=== PATIENT | female | born 2000 | race Caucasian/White ===

== ENCOUNTER 2024-06-14 17:38 | Emergency (ER) | payer MEDICAID, SELFPAY ==
[2024-06-14 17:49] VITALS: BP 132/88; PULSE 88; TEMP 36.6; O2SAT 98; BMI 48.1
--- NOTE | 2024-06-14 18:03 | ED_ITS ---
HPI - Abdominal Pain General Chief Complaint: Abdominal Pain Stated Complaint: ABD PAIN Time Seen by Provider: 06/14/24 17:46 Source: patient Mode of arrival: walk-in History of Present Illness HPI narrative: Patient is a 23-year-old female who presents to the emergency department for evaluation of mid abdominal pain that has been present for the last year. She states her symptoms have increased since this summer. She sees a local [facility], she states she has been off Depo for several months but has not had a menstrual period. She is unsure if she may be . She denies fevers, chills, nausea, vomiting, urinary symptoms. She denies any previous abdominal surgeries. No medications taken prior to arrival. Related Data Previous Rx's ?Medication ?Instructions ?Recorded ciprofloxacin HCl 500 mg tablet 500 mg PO BID 5 days #20 tabs 06/14/24 (Cipro) hyoscyamine sulfate 0.125 mg 0.125 mg PO Q6H PRN abdominal pain 06/14/24 tablet (Levsin) #12 tabs ketorolac 10 mg tablet 10 mg PO TID PRN pain #10 tabs 06/14/24 ondansetron 4 mg disintegrating 4 mg PO Q6H PRN nausea and 06/14/24 tablet vomiting #12 tabs Allergies Allergy/AdvReac Type Severity Reaction Status Date / Time Penicillins Allergy Severe Hives Verified 06/14/24 17:53 Review of Systems ROS Constitutional Denies: fever or chills Ears, nose, mouth, and throat Denies: throat pain or nasal congestion Respiratory Denies: shortness of breath Gastrointestinal Reports: abdominal pain; Denies: nausea or vomiting Genitourinary Denies: painful urination Musculoskeletal Denies: back pain Integumentary/Breast Denies: rash Hematologic/Lymphatic Denies: easy bruising or easy bleeding Exam Narrative Exam Narrative: Gen.: Awake, alert, in no distress Head: Normocephalic, atraumatic ENT: Moist mucous membranes Respiratory: No respiratory distress Gastrointestinal: Abdomen is soft, obese and nondistended. Diffusely mildly tender in the bilateral lower quadrants and umbilical abdomen with no guarding or rebound Extremities: Moves extremities equally Psych: Normal mood and affect Neuro: No focal neuro deficit Skin: Warm, dry, intact Constitutional Vital Signs, click to edit/add: Last Vital Signs Temp 97.8 F 06/14/24 17:49 Pulse 88 06/14/24 17:49 Resp 16 06/14/24 17:49 BP 132/88 06/14/24 17:49 Pulse Ox 98 06/14/24 17:49 O2 Del Method Room Air 06/14/24 17:49 Course Vital Signs Vital signs: Vital Signs Temperature 97.8 F 06/14/24 17:49 Pulse Rate 88 06/14/24 17:49 Respiratory Rate 16 06/14/24 17:49 Blood Pressure 132/88 06/14/24 17:49 Pulse Oximetry 98 06/14/24 17:49 Oxygen Delivery Method Room Air 06/14/24 17:49 Temperature 97.8 F 06/14/24 17:49 Pulse Rate 88 06/14/24 17:49 Respiratory Rate 16 06/14/24 17:49 Blood Pressure 132/88 06/14/24 17:49 Pulse Oximetry 98 06/14/24 17:49 Oxygen Delivery Method Room Air 06/14/24 17:49 MDM - Abdominal Pain MDM Narrative Medical decision making narrative: Labs are within normal limits including test which is negative. Patient sent for an ab series which is unremarkable and urine specimen shows patient has a mild contaminated urinary tract infection. Given her lower abdominal pain we will treat with antibiotics, Zofran, Levsin. Follow-up with PCP and return to the emergency department if symptoms change or worsen. SHARED APC VISIT, PHYSICIAN ATTESTATION: [id number] I performed a substantive part of the MDM during the patient?s E/M visit. I personally evaluated and examined the patient. I personally made or approved the documented management plan and acknowledge its risk of complications. Medical Records Attestation: I reviewed the patient's medical records. Lab Data Attestation: I reviewed the patient's lab results. Labs: Lab Results 06/14/24 06/14/24 Range/Units 18:00 18:09 WBC 10.4 (4.0-11.0) 10^3/uL RBC 4.89 (4.20-5.40) 10^6/uL Hgb 14.6 (12.0-16.0) g/dL Hct 42.4 (36.0-48.0) % MCV 86.7 (81.0-99.0) fL MCH 29.9 (26.7-34.0) pg MCHC 34.4 (29.9-35.2) g/dL RDW 12.5 (11.0-15.0) % Plt Count 233 (150-450) 10^3/uL MPV 9.6 (9.5-13.5) fL Neut % (Auto) 62.5 (43.0-75.0) % Lymph % (Auto) 30.2 (20.5-60.0) % [place] % (Auto) 5.4 (1.7-12.0) % Eos % (Auto) 1.2 (0.9-7.0) % Baso % (Auto) 0.3 (0.2-2.0) % Neut # (Auto) 6.5 (1.4-6.5) 10^3/uL Lymph # (Auto) 3.2 (1.2-3.8) 10^3/uL [place] # (Auto) 0.6 (0.3-0.8) 10^3/uL Eos # (Auto) 0.1 (0.0-0.7) 10^3/uL Baso # (Auto) 0.0 (0.0-0.1) 10^3/uL Abs Immat Gran (auto) 0.04 H (0.00-0.03) 10^3/uL Imm/Tot Granulo (auto) 0.4 (0.0-0.5) % Sodium 143 (136-145) mmol/L Potassium 3.9 (3.5-5.1) mmol/L Chloride 107 (98-107) mmol/L Carbon Dioxide 26.3 (21.0-32.0) mmol/L Anion Gap 13.6 BUN 14.0 (7.0-18.0) mg/dL Creatinine 1.07 H (0.55-1.02) mg/dL Est GFR ( Amer) >60 (>=60 mL/min/1.73m^2) Est GFR (Non-Af Amer) >60 (>=60 mL/min/1.73m^2) BUN/Creatinine Ratio 13.1 Glucose 83 (74-106) mg/dL Calcium 9.5 (8.5-10.1) mg/dL Total Bilirubin 0.6 (0.2-1.0) mg/dL AST 16 (15-37) U/L ALT 24 (14-59) U/L Alkaline Phosphatase 101 (46-116) U/L Total Protein 7.2 (6.4-8.2) g/dL Albumin 3.4 (3.4-5.0) g/dL Globulin 3.8 g/dL Albumin/Globulin Ratio 0.9 Lipase 28.0 (16.0-77.0) U/L Serum HCG, Qual Negative (NEGATIVE) Urine Color Lt. yellow (YELLOW) Urine Clarity Slightly cloudy A (CLEAR) Urine pH 7.0 (5.0-9.0) Ur Specific [place] 1.020 (1.005-1.025) Urine Protein Negative (NEG/TRACE) mg/dL Urine Glucose (UA) Negative (NEGATIVE) mg/dL Urine Ketones Negative (NEGATIVE) mg/dL Urine Occult Blood Negative (NEGATIVE) Urine Nitrite Negative (NEGATIVE) Urine Bilirubin Negative (NEGATIVE) Urine Urobilinogen 0.2 (0.2-1.0) EU/dL Ur Leukocyte Esterase Small A (NEGATIVE) Urine RBC 0-2 (0-2) #/HPF Urine WBC 5-10 A (NONE SEEN) #/HPF Ur Squamous Epith Cells Many A (NONE/RARE) #/LPF Urine Crystals None seen (None Seen) #/HPF Urine Bacteria Large A (NONE SEEN) #/HPF Urine Casts None seen (NONE SEEN) #/LPF Urine Mucus Small A (NONE SEEN) Ur Culture Indicated? Yes Imaging Data Abdominal x-ray: Attestation: I have reviewed the pertinent imaging results. Discharge Plan Discharge Chief Complaint: Abdominal Pain Clinical Impression: Abdominal pain, UTI (urinary tract infection) Patient Disposition: Home, Self-Care Time of Disposition Decision: 19:09 Condition: Good Prescriptions / Home Meds: New ciprofloxacin HCl [Cipro] 500 mg tablet 500 mg PO BID 5 Days Qty: 20 0RF ketorolac 10 mg tablet 10 mg PO TID PRN (Reason: pain) Qty: 10 0RF hyoscyamine sulfate [Levsin] 0.125 mg tablet 0.125 mg PO Q6H PRN (Reason: abdominal pain) Qty: 12 0RF ondansetron 4 mg tablet,disintegrating 4 mg PO Q6H PRN (Reason: nausea and vomiting) Qty: 12 0RF Print Language: Divehi Instructions: Urinary Tract Infection in Women (ED), Chronic Abdominal Pain (DC) Referrals: Physician,Non-Staff, MD [Primary Care Provider] - 1 week
[2024-06-14 18:17] LABS: Basophils Percent Auto 0.3 % (0.2-2.0); Eosinophils Absolute Auto 0.1 10^3/uL (0.0-0.7); Eosinophils Percent Auto 1.2 % (0.9-7.0); Hematocrit 42.4 % (36.0-48.0); Hemoglobin 14.6 g/dL (12.0-16.0); Immature Granulocytes Abs Auto 0.04 10^3/uL (0.00-0.03); Immature Granulocytes Pct Auto 0.4 % (0.0-0.5); Lymphocytes Absolute Auto 3.2 10^3/uL (1.2-3.8); Lymphocytes Percent Auto 30.2 % (20.5-60.0); Mean Corpuscular HGB Conc 34.4 g/dL (29.9-35.2); Mean Corpuscular Hemoglobin 29.9 pg (26.7-34.0); Mean Corpuscular Volume 86.7 fL (81.0-99.0); Mean Platelet Volume 9.6 fL (9.5-13.5); Monocytes Absolute Auto 0.6 10^3/uL (0.3-0.8); Monocytes Percent Auto 5.4 % (1.7-12.0); Neutrophils Absolute Auto 6.5 10^3/uL (1.4-6.5); Neutrophils Percent Auto 62.5 % (43.0-75.0); Platelet Count 233 10^3/uL (150-450); Red Blood Count 4.89 10^6/uL (4.20-5.40); Red Cell Distribution Width 12.5 % (11.0-15.0); White Blood Count 10.4 10^3/uL (4.0-11.0)
[2024-06-14 18:18] LABS: Bilirubin Urine NEGATIVE (NEGATIVE); Blood Urine NEGATIVE (NEGATIVE); Color Urine LT. YELLOW (YELLOW); Glucose Urine UA NEGATIVE (NEGATIVE); Ketones Urine NEGATIVE (NEGATIVE); Leukocyte Esterase Urine SMALL (NEGATIVE); Nitrite Urine NEGATIVE (NEGATIVE); Protein Urine NEGATIVE (NEG/TRACE); Urobilinogen Urine 0.2 EU/dL (0.2-1.0)
[2024-06-14] MEDS: HYOSCYAMINE SULFATE 0.125 MG TAB.SUBL SL (18:18)
[2024-06-14] MEDS: ONDANSETRON 4 MG RAPDIS TABLET SL (18:19)
[2024-06-14 18:25] LABS: Urine Microscopic Indicated YES
[2024-06-14 18:26] LABS: Clarity Urine SLIGHTLY CLOUDY (CLEAR)
[2024-06-14 18:31] LABS: Bacteria Urine LARGE #/HPF (NONE SEEN); Cast Seen? NONE SEEN #/LPF (NONE SEEN); Crystals Seen? None Seen #/HPF (None Seen); Mucus Urine SMALL (NONE SEEN); RBC Urine 0-2 #/HPF (0-2); Squamous Epithelial Cell Urine MANY #/LPF (NONE/RARE); Urine Culture Indicated YES
[2024-06-14 18:33] LABS: Alanine Aminotransferase 24 U/L (14-59); Albumin Level 3.4 g/dL (3.4-5.0); Alkaline Phosphatase 101 U/L (46-116); Anion Gap 13.6; Aspartate Amino Transferase 16 U/L (15-37); BUN Creatinine Ratio 13.1; Bilirubin Total 0.6 mg/dL (0.2-1.0); Calcium 9.5 mg/dL (8.5-10.1); Carbon Dioxide 26.3 mmol/L (21.0-32.0); Chloride 107 mmol/L (98-107); Estimated GFR (African America >60 (>=60 mL/min/1.73m^2); Estimated GFR (Non-African Ame >60 (>=60 mL/min/1.73m^2); Glucose 83 mg/dL (74-106); Potassium 3.9 mmol/L (3.5-5.1); Sodium 143 mmol/L (136-145); Total Protein 7.2 g/dL (6.4-8.2)
[2024-06-14 18:34] LABS: Albumin Globulin Ratio 0.9; Globulin 3.8 g/dL
[2024-06-14 18:46] LABS: HCG Qualitative NEGATIVE (NEGATIVE); Internal Control Within Normal Limits
--- NOTE | 2024-06-14 18:48 | XR_ITS ---
The [address] [address] Patient Name: JOHN PAUL SCHILLING MRN: [id number] date: 2000 Sex: F Assigned Patient Location: ER Current Patient Location: Accession/Order Number: [id number] Exam Date: 06/14/2024 18:55 Report Date: 06/14/2024 21:12 At the request of: BRO HERRERA Procedure: XR acute abdomen series EXAM: XR acute abdomen series HISTORY: Abdominal pain COMPARISON: None. TECHNIQUE: AP chest with AP supine and upright abdominal x-rays. FINDINGS: The heart, mediastinum and pulmonary vascularity are within normal limits. The lungs and pleural spaces are clear. The bowel gas pattern appears normal. No bowel dilatation, wall thickening, pneumatosis or free air is seen. Colonic stool volume appears normal. No urinary tract calculi are identified. There is a mild broad thoracolumbar levoscoliosis. There is sacralization of L5 on the right. No acute osseous abnormality or focal bony lesion is seen. XR/XR acute abdomen series IMPRESSION: No acute findings in the chest or abdomen. Electronically authenticated by: DELMY WOODRUFF Date: 06/14/2024 21:12
== END 2024-06-14 19:55 | disposition home or self-care (01) ==
PROVIDERS: Physician Assistant; Emergency Provider Emergency Medicine
DX: N39.0 Urinary tract infection, site not specified (principal); R10.9 Unspecified abdominal pain
CPT/HCPCS: 36415; 74022; 80053; 81001; 83690; 84703; 85025; 87086; 99285; Q0162

== ENCOUNTER 2024-08-16 20:21 | Emergency (ER) | payer MEDICAID, SELFPAY ==
[2024-08-16] VITALS (9 sets, daily range): BP systolic 118–133; BP diastolic 77–86; PULSE 76–98; TEMP 36.7; O2SAT 96–99; BMI 50.2
--- OUTSIDE RECORDS SUMMARY | 2024-08-16 20:27 | XMS_ITS | CCD ---
Author Organization [facility] Care Team Providers Care Director Professional Services Name Role Phone CLEEMPUT, JODI ROSSI GARBAGE DEPOT WORKER Attending Unavailable Cleemput, Jodi [place] Primary Care Unavailable Cleemput, Jodi [place] Primary Care Unavailable Paulette Harley Attending Unava ilable CLEEMPUT, JODI ROSSI GARBAGE DEPOT WORKER Consulting Unavailable Unavailable Primary Care Provider ESTEFANY Herr Referring Unavailable MISC, DR CASTAÑEDA Primary Care Unavailable CARL ., DR JOLLY Consulting Unavailable CARL ., DR JOLLY Admitting Unavailable CARL ., DR JOLLY Attending Unavailable ZIEBER, DR DALTON Valerio Consulting Unavailable CARL ., DR JOLLY Admitting Unavailable REQUEST, DR NONE LISTED Primary Care Unavaila ble CARL ., DR JOLLY Attending Unavailable CARL ., DR JOLLY Consulting Unavailable ZIEBER, DR DALTON Valerio Consulting Unavailable CARLEY ., JODI Consulting Unavailable CARL ., DR JOLLY Admitting Unavailable REQUEST, DR NONE LISTED Primary Care Unavaila ble CARL ., DR JOLLY Attending Unavailable MISC, DR CASTAÑEDA Primary Care Unavailable CARLEY ., JODI Attending Unavailable CARLEY ., JODI Consulting Unavailable CARLEY ., JODI Admitting Unavailable MISC, DR CASTAÑEDA Primary Care Unavailable CARL ., DR JOLLY Consulting Unavailable CARL ., DR JOLLY Admitting Unavailable CARL ., DR JOLLY Attending Unavailable CARL ., DR JOLLY Admitting Unavailable REQUEST, DR NONE LISTED Primary Care Unavaila ble CARL ., DR JOLLY Consulting Unavailable CARL ., DR JOLLY Attending Unavailable ZIEBER, DR DALTON Valerio Consulting Unavailable CARLEY ., JODI Consulting Unavailable JAVI, DR EDIE Valerio Attending Unavailable JAVI, DR EDIE Valerio Consulting Unavailable MISC, DR CASTAÑEDA Primary Care Unavailable JAVI, DR EDIE Valerio Admitting Unavailable ASHLEY BEASLEY Consulting Unavailable MISC, DR CASTAÑEDA Primary Care Unavailable CARL ., DR JOLLY Consulting Unavailable CARL ., DR JOLLY Admitting Unavailable CARL ., DR JOLLY Attending Unavailable ZIEBER, DR DALTON Valerio Consulting Unavailable CARL ., DR JOLLY Consulting Unavailable MISC, DR CASTAÑEDA Primary Care Unavailable CARL ., DR JOLLY Admitting Unavailable CARL ., DR JOLLY Attending Unavailable CARL ., DR JOLLY Consulting Unavailable MISC, DR CASTAÑEDA Primary Care Unavailable CARL ., DR JOLLY Admitting Unavailable CARL ., DR JOLLY Attending Unavailable REQUEST, DR NONE LISTED Primary Care Unavaila ble CARL ., DR JOLLY Admitting Unavailable CARL ., DR JOLLY Attending Unavailable CARL ., DR JOLLY Consulting Unavailable KARASIK ., DR LYN Consulting Unavailabl e KARASIK ., DR LYN Admitting Unavailabl e KARASIK ., DR LYN Attending Unavailabl e REQUEST, DR NONE LISTED Primary Care Unavaila ble ZIEBER, DR DALTON Valerio Consulting Unavailable CARLEY ., JODI Consulting Unavailable REQUEST, DR NONE LISTED Primary Care Unavaila ble CARL ., DR JOLLY Admitting Unavailable CARL ., DR JOLLY Attending Unavailable CARL ., DR JOLLY Consulting Unavailable CARL ., DR JOLLY Admitting Unavailable REQUEST, DR NONE LISTED Primary Care Unavaila ble CARL ., DR JOLLY Consulting Unavailable CARL ., DR JOLLY Attending Unavailable CARL ., DR JOLLY Admitting Unavailable REQUEST, DR NONE LISTED Primary Care Unavaila ble CARL ., DR JOLLY Consulting Unavailable CARL ., DR JOLLY Attending Unavailable CARL ., DR JOLLY Admitting Unavailable REQUEST, DR NONE LISTED Primary Care Unavaila ble CARL ., DR JOLLY Consulting Unavailable CARL ., DR JOLLY Attending Unavailable MISC, DR CASTAÑEDA Primary Care Unavailable CARL ., DR JOLLY Admitting Unavailable CARL ., DR JOLLY Consulting Unavailable CARL ., DR JOLLY Attending Unavailable CARL ., DR JOLLY Consulting Unavailable CARL ., DR JOLLY Admitting Unavailable REQUEST, DR NONE LISTED Primary Care Unavaila ble CARL ., DR JOLLY Attending Unavailable CARLEY ., JODI Admitting Unavailable CARLEY ., JODI Attending Unavailable REQUEST, DR NONE LISTED Primary Care Unavaila ble CARL ., DR JOLLY Admitting Unavailable REQUEST, DR NONE LISTED Primary Care Unavaila ble CARL ., DR JOLLY Attending Unavailable DIAB ., AIDAN Attending Unavailable DIAB ., AIDAN Consulting Unavailable REQUEST, DR NONE LISTED Primary Care Unavaila ble DIAB ., AIDAN Admitting Unavailable KARASIK ., DR LYN Consulting Unavailabl e CARL ., DR JOLLY Admitting Unavailable REQUEST, DR NONE LISTED Primary Care Unavaila ble CARL ., DR JOLLY Attending Unavailable CARL ., DR JOLLY Consulting Unavailable KARASIK ., DR LYN Procedure Practitioner Tamiko vailable MISC, DR CASTAÑEDA Primary Care Unavailable CARLEY ., JODI Attending Unavailable CARLEY ., JODI Admitting Unavailable CARL ., DR JOLLY Consulting Unavailable CARL ., DR JOLLY Admitting Unavailable MISC, DR CASTAÑEDA Primary Care Unavailable CARL ., DR JOLLY Attending Unavailable ZIEBER, DR DALTON Valerio Consulting Unavailable REQUEST, DR NONE LISTED Primary Care Unavaila ble KARASIK ., DR LYN Admitting Unavailabl e KARASIK ., DR YLN Attending Unavailabl e KARASIK ., DR LYN Consulting Unavailabl e WEST, DR MACHELLE Scott Consulting Unavailable CARLEY ., JODI Consulting Unavailable MISC, DR CASTAÑEDA Primary Care Unavailable CARL ., DR JOLLY Consulting Unavailable CARL ., DR JOLLY Admitting Unavailable CARL ., DR JOLLY Attending Unavailable CARLEY, JODI Attending Unavailable CARLEY, JODI Attending Unavailable Daniel Pietro DEVINE Primary Care Provider PIETRO SANCHEZ Attending Unavailable PIETRO SANCHEZ Referring Unavailable DANIEL, MUHAMID M Primary Care Unavailable AIME, ZULEYMA H Attending Unavailable DANIEL, MUHAMID M Primary Care Unavailable AIME, ZULEYMA H Attending Unavailable AIME, ZULEYMA H Referring Unavailable DANIEL, MUHAMID M Primary Care Unavailable DANIEL, MUHAMID M Primary Care Unavailable EDITH SILVA Attending Unavailable Allergies Allergy Classification Reported Allergen(s) Allergy Type Date of Onset Reaction(s) Facility (1 source) Penicillin; Translations: [penicillin] Drug Allergy [facility] Repository (2 sources) bee venom Propensity to adverse reactions to drug 9 Shortness Of Breath [facility] (4 sources) Cephalexin; Translations: [CEPHALEXIN] Drug Allergy 2 Rash [employer] Work Phone: (4 sources) Penicillins; Translations: [PENICILLINS] Propensity to adverse reactions to drug 8 [employer] Phone: (1 source) bee venom Drug allergy (disorder) 5 [facility] (1 source) Penicillins Drug allergy (disorder) 5 [facility] (2 sources) BEE VENOM PROTEIN (HONEY BEE); Translations: [BEE VENOM PROTEIN (HONEY BEE)] Propensity to adverse reactions to drug (disorder) 9 [facility] Medications Current Medications Medication Drug Class(es) Dates Sig (Normalized) Sig (Original) acetaminophen 500 mg oral tablet (2 sources) Start: 03-04-2024 End: 07-25-2024 take 2 tablets by mouth every six hours as needed for pain acetaminophen (TYLENOL EXTRA STRENGTH) 500 mg tablet Take 2 tablets (1,000 mg total) by mouth every 6 (six) hours as needed for pain. 30 tablet 03/04/2024 07/25/2024 Discontinued Start: 10-01-2021 [facility] needed acetaminophen (TYLENOL) 500 MG tablet Take 1,000 mg by mouth every 6 hours as needed 0 10/01/2021 Active benzocaine 6 mg / menthol 10 mg oral lozenge (1 source) Standardized Chemical Allergen Start: 12-31-2021 End: 07-25-2024 take 1 tablet by mouth every two hours as needed benzocaine-menthoL (CHLORASEPTIC SORE THROAT) 6-10 mg lozenge Dissolve 1 lozenge in the mouth every 2 (two) hours as needed for sore throat. 100 tablet 12/31/2021 07/25/2024 Discontinued dicyclomine hydrochloride 20 mg oral tablet (1 source) Anticholinergic Start: 03-02-2022 End: 07-25-2024 take 1 tablet by mouth in the morning, then take 1 tablet by mouth at bedtime dicyclomine (BENTYL) 20 mg tablet Take 1 tablet (20 mg total) by mouth in the morning and 1 tablet (20 mg total) before bedtime. 20 tablet 03/02/2022 07/25/2024 Discontinued fluconazole 100 mg oral tablet (1 source) Azole Antifungal Start: 07-25-2024 End: 07-28-2024 take 1 tablet by mouth in the morning fluconazole (DIFLUCAN) 100 mg tablet Indications: Candidal vaginitis Take 1 tablet (100 mg total) by mouth in the morning for 3 doses. 3 tablet 07/25/2024 07/28/2024 Active hydrOXYzine hydrochloride 25 mg oral tablet (1 source) Antihistamine Start: 07-25-2024 take 1 tablet by mouth three times daily as needed for anxiety hydrOXYzine (ATARAX) 25 mg tablet Indications: Bipolar affective disorder, currently depressed, moderate (CMS-HCC) Take 1 tablet (25 mg total) by mouth 3 (three) times a day as needed for anxiety. 90 tablet 07/25/2024 Active Start: 07-25-2024 take 1 tablet by randi th three times daily as needed for anxiety hydrOXYzine (ATARAX) 25 mg tablet Indications: Bipolar affective disorder, currently depressed, moderate (CMS-HCC) Take 1 tablet (25 mg total) by mouth 3 (three) times a day as needed for anxiety. 90 tablet 07/25/2024 Active ibuprofen 800 mg oral tablet (1 source) Nonsteroidal Anti-inflammatory Drug Start: 03-04-2024 End: 07-25-2024 take 1 tablet by mouth three times daily ibuprofen (MOTRIN) 800 mg tablet Take 1 tablet (800 mg total) by mouth 3 (three) times a day. 21 tablet 03/04/2024 07/25/2024 Discontinued lamoTRIgine 25 mg oral tablet (1 source) Mood Stabilizer, Anti-epileptic Agent Start: 07-25-2024 take 1 tablet by mouth in the morning, then take 1 tablet by mouth at bedtime lamoTRIgine (LaMICtal) 25 mg tablet Indications: Bipolar affective disorder, currently depressed, moderate (CMS-HCC) Take 1 tablet (25 mg total) by mouth in the morning and 1 tablet (25 mg total) before bedtime. 60 tablet 07/25/2024 Active Start: 07-25-2024 take 1 tablet by randi th in the morning, then take 1 tablet by mouth at bedtime lamoTRIgine (LaMICtal) 25 mg tablet Indications: Bipolar affective disorder, currently depressed, moderate (CMS-[facility]) Take 1 tablet (25 mg total) by mouth in the morning and 1 tablet (25 mg total) before bedtime. 60 tablet 07/25/2024 Active vit,indira 74/iron/folic ( VITAMIN 1+1 ORAL) (1 source) End: 07-25-2024 take 1 tablet by mouth in the morning vit,indira 74/iron/folic ( VITAMIN 1+1 ORAL) Take 1 tablet by mouth in the morning. 07/25/2024 Discontinued Vit-Fe Fumarate-FA ( 19) 29-1 MG CHEW (1 source) Vit-Fe Fumarate-FA ( 19) 29-1 MG CHEW Take by mouth 0 Active pseudoephedrine hydrochloride 30 mg oral tablet (1 source) alpha-Adrener gic Agonist Start: 12-31-2021 End: 07-25-2024 take 1 tablet by mouth every six hours as needed for congestion pseudoephedrine (SUDAFED) 30 mg tablet Take 1 tablet (30 mg total) by mouth every 6 (six) hours as needed for congestion. 15 tablet 12/31/2021 07/25/2024 Discontinued Problems Active Problems Problem Classification Problem Date Documented Date Episodic/Chronic Administrative/social admission (1 source) Encounter for issue of repeat prescription; Translations: [ENC FOR ISSUE REPEAT PRESCRIPTION] Onset: 10-06-2022 Episodic Allergic reactions (2 sources) Allergy status to penicillin; Translations: [Bee allergy status] Onset: 11-19-2022 Episodic Diabetes mellitus without complication (4 sources) Other abnormal glucose; Translations: [OTHER ABNORMAL GLUCOSE] Onset: 09-04-2022 Episodic Genitourinary symptoms and ill-defined conditions (2 sources) Dysuria; Translations: [Dysuria] Onset: 07-25-2024 07-25-2024 Episodic Menstrual disorders (4 sources) Irregular menstruation, unspecified; Translations: [IRREGULAR MENSTRUATION UNSPECIFIED] Onset: 03-31-2022 Chronic Mood disorders (4 sources) Bipolar affective disorder, currently depressed, moderate; Translations: [Bipolar disorder, current episode depressed, moderate] Onset: 10-25-2017 07-25-2024 Chronic Mycoses (1 source) Candidiasis of vagina; Translations: [Candidal vaginitis] 07-25-2024 Episodic Other aftercare (1 source) Other exterminator termite (current) drug therapy; Translations: [OTH SNF CURRENT DRUG THERAPY] Onset: 11-19-2022 Episodic Other complications of (2 sources) Supervision of other high risk pregnancies, second trimester; Translations: [Supervision of other high risk pregnancies, second trimester] Onset: 08-17-2022 Episodic Other complications of (2 sources) Maternal care for other isoimmunization, unspecified trimester, not applicable or unspecified; Translations: [Maternal care for other isoimmunization, unspecified trimester, not applicable or unspecified] Onset: 08-17-2022 Episodic Other complications of (4 sources) Maternal care for excessive growth, third trimester, not applicable or unspecified; Translations: [MAT CARE EXCSS FTL GRTH 3RD TRI UNS] Onset: 10-30-2022 Episodic Other complications of (1 source) Diseases of the respiratory system complicating , third trimester; Translations: [DISEASES RESP SYS COMP PREG 3RD TRI] Onset: 10-06-2022 Episodic Other female genital disorders (6 sources) Other specified noninflammatory disorders of vagina; Translations: [OTH SPEC NONINFLAMMATORY D/O VAGINA] Onset: 07-28-2022 Episodic Other female genital disorders (1 source) Vaginal discharge; Translations: [Other specified noninflammatory disorders of vagina] 07-25-2024 Episodic Other upper respiratory infections (1 source) Acute upper respiratory infection, unspecified; Translations: [ACUTE UP RESPIRATORY INFECTION UNS] Onset: 10-06-2022 Episodic Residual codes; unclassified (2 sources) 27 weeks gestation of ; Translations: [27 weeks gestation of ] Onset: 08-17-2022 Episodic Residual codes; unclassified (2 sources) Family history of other specified conditions; Translations: [Family history of other specified conditions] Onset: 08-17-2022 Episodic Residual codes; unclassified (1 source) 39 weeks gestation of ; Translations: [39 WEEKS GESTATION OF ] Onset: 11-19-2022 Episodic Residual codes; unclassified (1 source) 37 weeks gestation of ; Translations: [37 WEEKS GESTATION OF ] Onset: 11-04-2022 Episodic Residual codes; unclassified (1 source) 35 weeks gestation of ; Translations: [35 WEEKS GESTATION OF ] Onset: 10-23-2022 Episodic Residual codes; unclassified (1 source) 34 weeks gestation of ; Translations: [34 WEEKS GESTATION OF ] Onset: 10-10-2022 Episodic Residual codes; unclassified (1 source) 33 weeks gestation of ; Translations: [33 WEEKS GESTATION OF ] Onset: 10-10-2022 Episodic Residual codes; unclassified (1 source) 32 weeks gestation of ; Translations: [32 WEEKS GESTATION OF ] Onset: 09-29-2022 Episodic Residual codes; unclassified (1 source) 28 weeks gestation of ; Translations: [28 WEEKS GESTATION OF ] Onset: 10-06-2022 Episodic Superficial injury; contusion (3 sources) Contusion of right hand, initial encounter; Translations: [Contusion of left lower leg, initial encounter] Onset: 03-04-2024 Episodic Unclassified (2 sources) COUGH, UNSPECIFIED; Translations: [COUGH, UNSPECIFIED] Onset: 10-06-2022 Unclassified (1 source) Acute candidiasis of vulva and vagina; Translations: [Acute candidiasis of vulva and vagina] Onset: 07-25-2024 Unclassified (1 source) Establish Care Onset: 07-25-2024 Unclassified (1 source) Hand Injury Onset: 07-28-2024 Unclassified (1 source) Fall, Leg Pain Onset: 03-04-2024 Past or Other Problems Problem Classification Problem Date Documented Da te Episodic/Chronic Chronic obstructive pulmonary disease and bronchiectasis (1 source) Bronchitis, not specified as acute or chronic; Translations: [BRONCHITIS NOT SPEC ACUTE/CHRON] Onset: 04-06-2022 Episodic Gastrointestinal hemorrhage (1 source) Rectal hemorrhage; Translations: [Hemorrhage of anus and rectum] Onset: 10-27-2018 Resolved: 11-29-2018 11-29-2018 Episodic Immunizations and screening for infectious disease (6 sources) Encounter for screening for human papillomavirus (HPV); Translations: [Encounter for screening for infections with a predominantly sexual mode of transmission] Onset: 05-06-2022 Episodic Mood disorders (1 source) Mood disorders Onset: 07-25-2024 07-25-2024 Nonspecific chest pain (4 sources) Chest pain, unspecified; Translations: [CHEST PAIN UNSPECIFIED] Onset: 04-04-2022 Episodic Other complications of (1 source) Other specified related conditions, first trimester; Translations: [OTH SPEC PREG RELATED COND 1ST TRI] Onset: 04-06-2022 Episodic Other complications of (1 source) Teenage ; Translations: [Supervision of other high risk pregnancies, third trimester] Onset: 10-27-2018 10-27-2018 Episodic Other connective tissue disease (1 source) Pain in lower limb Onset: 03-04-2024 Episodic Other infections; including parasitic (1 source) Infestation by bed bug; Translations: [Other specified infestations] Onset: 11-29-2018 11-29-2018 Episodic Other and delivery including normal (20 sources) Encounter for full-term uncomplicated delivery; Translations: [Single live ] Onset: 01-18-2019 Episodic Other screening for suspected conditions (not mental disorders or infectious disease) (9 sources) Encounter for screening for malignant neoplasm of cervix; Translations: [Encounter for other screening follow-up] Onset: 04-30-2022 Episodic Pleurisy; pneumothorax; pulmonary collapse (1 source) Pleurisy; Translations: [PLEURISY] Onset: 04-06-2022 Episodic Residual codes; unclassified (1 source) Less than 8 weeks gestation of ; Translations: [< 8 WEEKS GESTATION ] Onset: 04-06-2022 Episodic Unclassified (1 source) COUGH, UNSPECIFIED; Translations: [COUGH, UNSPECIFIED] Onset: 08-29-2022 Results Test Name Value Interpretation Reference Range Facility XR HAND RT MIN 3 VWSon 07-28 XR HAND RT MIN 3 VWS XR HAND RT MIN 3 VW S EXAM: XR HAND RT MIN 3 VWS CLINICAL INFORMATION: fall, injury, swelling. COMPARISON: None. FINDINGS: There is no evidence for an acute displaced fracture or malalignment of the hand. The joint spaces are relatively well-preserved. IMPRESSION: Normal 3 views of the hand. Finalized by Joe Olvera MD on 07/28/2024 5:35 PM [facility] XR TIBIA FIBULA LT MIN 2 VWS on 03-04-2024 XR TIBIA FIBULA LT MIN 2 VWS XR TIBIA FIBULA LT MIN 2 VWS History: Pain after trauma Exam/Technique: Frontal and lateral views of the left tibia and fibula were obtained. Comparison: None Findings: There is no evidence for an acute osseous abnormality. A definite fracture is not seen. IMPRESSION: Normal left tibia and fibula. Finalized by Machelle Bennett MD on 03/04/2024 10:57 PM Normal [facility] XR TIBIA FIBULA RT MIN 2 VWS on 03-04-2024 XR TIBIA FIBULA RT MIN 2 VWS XR TIBIA FIBULA RT MIN 2 VWS History: Pain after falling Exam/Technique: Frontal and lateral views of the right tibia and fibula were obtained. Comparison: None Findings: There is no evidence for an acute osseous abnormality. Definite fracture is not seen. IMPRESSION: Normal right tibia and fibula. Finalized by Machelle Bennett MD on 03/04/2024 10:55 PM Normal [facility] ANTIBODY SCR REFLEX TO ID/TI Leyda 11-12-2022 Antibody ID #1 Anti-E Normal [facility] Comment on above: Performed By: #### A BSCRLC ####[facility] [id number] [place], [place] [address]Dr. Thomas Sanchez Antibody ID #2 Normal [facility] Comment on above: Performed By: #### A BSCRLC ####[facility] [id number] [place], [place] [address]Dr. Thomas Sanchez Carlos Titer #1 2 Normal [facility] Comment on above: Result Comment: If a numerical titer result has been reported, please note that this result is the reciprocal value of titer results formerly reported as 1:2,1:4, 1:8, etc. These results are now reported as 2, 4, 8, etc. The [employer] has recommended this change in titer reporting formats to simply reflect the reciprocal value of the titer. Performed By: #### A BSCRLC ####[facility] [id number] [place], [place] [address]Dr. Thomas Sanchez Carlos Titer #2 Normal [facility] Comment on above: Performed By: #### A BSCRLC ####[facility] [id number] [place], [place] [address]Dr. Thomas Sanchez CBC AUTO DIFFon 11-11-2022 BASO # 0.0 103/ul Normal 0.0-0.1 [facility] Comment on above: Performed By: #### A 1C #### [facility] [address] [place] [address] Dr. Thomas Sanchez Basophils/100 WBC (Bld) 0.2 % Normal 0.2-2.0 [facility] Comment on above: Performed By: #### A 1C #### [facility] [address] [place] [address] Dr. Thomas Sanchez EO # 0.1 103/ul Normal 0.0-0.7 [facility] Comment on above: Performed By: #### A 1C #### [facility] [address] [place] [address] Dr. Thomas Sanchez Eosinophils/100 WBC (Bld) 0.8 % Critically low 0.9-7.0 [facility] Comment on above: Performed By: #### A 1C #### [facility] [address] [place] [address] Dr. Thomas Sanchez Erythrocyte distribution width (RBC) [Ratio] 13.2 % Normal 11.0-15.0 [facility] Comment on above: Performed By: #### A 1C #### [facility] [address] [place] [address] Dr. Thomas Sanchez Hematocrit (Bld) [Volume fraction] 30.6 % Critically low 36.0-48.0 [facility] Comment on above: Performed By: #### A 1C #### [facility] [address] [place] [address] Dr. Thomas Sanchez Hemoglobin (Bld) [Mass/Vol] 9.9 g/dL Critically low 12.0-16.0 [facility] Comment on above: Performed By: #### A 1C #### [facility] [address] [place] [address] Dr. Thomas Sanchez IG # 0.05 10e3/ul Critically high 0.00-0.03 [facility] Comment on above: Performed By: #### A 1C #### [facility] [address] [place] [address] Dr. Thomas Sanchez IG % 0.4 % Normal 0.0-0.5 [facility] Comment on above: Performed By: #### A 1C #### [facility] [address] [place] [address] Dr. Thomas Sanchez LYMPH # 2.9 103/ul Normal 1.2-3.8 [facility] Comment on above: Performed By: #### A 1C #### [facility] [address] [place] [address] Dr. Thomas Sanchez Lymphocytes/100 WBC (Bld) 26.4 % Normal 20.5-60.0 [facility] Comment on above: Performed By: #### A 1C #### [facility] [address] [place] [address] Dr. Thomas Sanchez MANUAL DIFF REQ NO Normal [place] Comment on above: Performed By: #### A 1C #### [facility] [address] [place] [address] Dr. Thomas Sanchez MCH (RBC) [Entitic mass] 27.9 pg Normal 26.7-34.0 [facility] Comment on above: Performed By: #### A 1C #### [facility] [address] [place] [address] Dr. Thomas Sanchez MCHC (RBC) [Mass/Vol] 32.4 g/dL Normal 29.9-35.2 [facility] Comment on above: Performed By: #### A 1C #### [facility] [address] [place] [address] Dr. Thomas Sanchez MCV (RBC) [Entitic vol] 86.2 fL Normal 81.0-99.0 [facility] Comment on above: Performed By: #### A 1C #### [facility] [address] [place] [address] Dr. Thomas Sanchez MONO # 0.8 103/ul Normal 0.3-0.8 [facility] Comment on above: Performed By: #### A 1C #### [facility] [address] [place] [address] Dr. Thomas Sanchez Monocytes/100 WBC (Bld) 6.8 % Normal 1.7-12.0 [facility] Comment on above: Performed By: #### A 1C #### [facility] [address] [address] [address] Thomas Sanchez NEUT # 7.3 103/ul Critically high 1.4-6.5 [facility] Comment on above: Performed By: #### A 1C #### [facility] [address] [address] [address] Thomas Sanchez Neutrophils/100 WBC (Bld) 65.4 % Normal 43.0-75.0 [facility] Comment on above: Performed By: #### A 1C #### [facility] [address] [address] [address] Thomas Sanchez Platelet mean volume (Bld) [Entitic vol] 10.2 fL Normal 9.5-13.5 [facility] Comment on above: Performed By: #### A 1C #### [facility] [address] [address] [address] Thomas Sanchez PLT 171 103/ul Normal 150-450 [facility] Comment on above: Performed By: #### A 1C #### [facility] [address] [address] [address] Thomas Sanchez RBC 3.55 106/ul Critically low 4.20-5.40 [facility] Comment on above: Performed By: #### A 1C #### [facility] [address] [place] [address] Dr. Thomas Sanchez WBC 11.1 103/ul Critically high 4.0-11.0 [facility] Comment on above: Performed By: #### A 1C #### [facility] [address] [place] [address] Dr. Thomas Sanchez CBC AUTO DIFFon 11-10-2022 BASO # 0.0 103/ul Normal 0.0-0.1 [facility] Comment on above: Performed By: #### A 1C #### [facility] [address] [address] [address] Thomas Sanchez Basophils/100 WBC (Bld) 0.2 % Normal 0.2-2.0 [facility] Comment on above: Performed By: #### A 1C #### [facility] [address] [place] [address] Dr. Thomas Sanchez EO # 0.1 103/ul Normal 0.0-0.7 [facility] Comment on above: Performed By: #### A 1C #### [facility] [address] [place] [address] Dr. Thomas Sanchez Eosinophils/100 WBC (Bld) 1.2 % Normal 0.9-7.0 [facility] Comment on above: Performed By: #### A 1C #### [facility] [address] [place] [address] Dr. Thomas Sanchez Erythrocyte distribution width (RBC) [Ratio] 13.2 % Normal 11.0-15.0 [facility] Comment on above: Performed By: #### A 1C #### [facility] [address] [place] [address] Dr. Thomas Sanchez Hematocrit (Bld) [Volume fraction] 35.4 % Critically low 36.0-48.0 [facility] Comment on above: Performed By: #### A 1C #### [facility] [address] [place] [address] Dr. Thomas Sanchez Hemoglobin (Bld) [Mass/Vol] 11.7 g/dL Critically low 12.0-16.0 [facility] Comment on above: Performed By: #### A 1C #### [facility] [address] [place] [address] Dr. Thomas Sanchez IG # 0.04 10e3/ul Critically high 0.00-0.03 [facility] Comment on above: Performed By: #### A 1C #### [facility] [address] [place] [address] Dr. Thomas Sanchez IG % 0.4 % Normal 0.0-0.5 [facility] Comment on above: Performed By: #### A 1C #### [facility] [address] [place] [address] Dr. Thomas Sanchez LYMPH # 2.9 103/ul Normal 1.2-3.8 [facility] Comment on above: Performed By: #### A 1C #### [facility] [address] [place] [address] Dr. Thomas Sanchez Lymphocytes/100 WBC (Bld) 32.7 % Normal 20.5-60.0 [facility] Comment on above: Performed By: #### A 1C #### [facility] [address] [place] [address] Dr. Thomas Sanchez MANUAL DIFF REQ NO Normal [place] Comment on above: Performed By: #### A 1C #### [facility] [address] [place] [address] Dr. Thomas Sanchez MCH (RBC) [Entitic mass] 28.0 pg Normal 26.7-34.0 [facility] Comment on above: Performed By: #### A 1C #### [facility] [address] [place] [address] Dr. Thomas Sanchez MCHC (RBC) [Mass/Vol] 33.1 g/dL Normal 29.9-35.2 [facility] Comment on above: Performed By: #### A 1C #### [facility] [address] [place] [address] Dr. Thomas Sanchez MCV (RBC) [Entitic vol] 84.7 fL Normal 81.0-99.0 [facility] Comment on above: Performed By: #### A 1C #### [facility] [address] [place] [address] Dr. Thomas Sanchez MONO # 0.7 103/ul Normal 0.3-0.8 [facility] Comment on above: Performed By: #### A 1C #### [facility] [address] [place] [address] Dr. Thomas Sanchez Monocytes/100 WBC (Bld) 8.3 % Normal 1.7-12.0 [facility] Comment on above: Performed By: #### A 1C #### [facility] [address] [place] [address] Dr. Thomas Sanchez NEUT # 5.1 103/ul Normal 1.4-6.5 [facility] Comment on above: Performed By: #### A 1C #### [facility] [address] [address] [address] Thomas Sanchez Neutrophils/100 WBC (Bld) 57.2 % Normal 43.0-75.0 [facility] Comment on above: Performed By: #### A 1C #### [facility] [address] [address] [address] Thomas Sanchez Platelet mean volume (Bld) [Entitic vol] 10.5 fL Normal 9.5-13.5 [facility] Comment on above: Performed By: #### A 1C #### [facility] [address] [address] [address] Thomas Sanchez PLT 211 103/ul Normal 150-450 [facility] Comment on above: Performed By: #### A 1C #### [facility] [address] [address] [address] Thomas Sanchez RBC 4.18 106/ul Critically low 4.20-5.40 [facility] Comment on above: Performed By: #### A 1C #### [facility] [address] [address] [address] Thomas Sanchez WBC 8.9 103/ul Normal 4.0-11.0 [facility] Comment on above: Performed By: #### A 1C #### [facility] [address] [address] [address] Thomas Sanchez DIRECT COOMBSon 11-10-2022 DIRECT CARLOS Negative Normal [facility] Comment on above: Performed By: #### 4 [id number] #### [facility] [address] [address] [address] Thomas Sanchez DRUG SCREEN RAPID (URINE)on 11-10-2022 AMP Negative Normal NEGATIVE [facility] Comment on above: Performed By: #### D RUGRPD ####[facility] [address] [id number]. Thomas Sanchez BAR Negative Normal NEGATIVE [facility] Comment on above: Performed By: #### D RUGRPD ####[facility] [address] [id number]. Thomas Sanchez BUP Negative Normal NEGATIVE [facility] Comment on above: Performed By: #### D RUGRPD ####[facility] [address] [id number]. Thomas Sanchez BZO Negative Normal NEGATIVE [facility] Comment on above: Performed By: #### D RUGRPD ####[facility] [address] [id number]. Thomas Sanchez MELANIE Negative Normal NEGATIVE [facility] Comment on above: Performed By: #### D RUGRPD ####[facility] [address] [id number]. Thomas Sanchez CUT-OFFS SEE BELOW [facility] Comment on above: Result Comment: AMP (Amphetamine): 500ng/mL, BAR (Barbituates): 200 ng/mL, BZO (Benzodiazepines): 150 ng/mL, BUP (Buprenorphine): 10 ng/mL, MELANIE (Cocaine): 150 ng/mL, mAMP (Methamphetamine): 500 ng/mL, MTD (Methadone): 200 ng/mL, OPI (Opiates): 100 ng/mL, OXY (Oxycodone): 100 ng/mL, PCP (Phencyclidine): 25 ng/mL, PPX (Propoxyphene): 300 ng/mL, THC (Cannabinoids): 50 ng/mL, TCA (Trycyclic Antidepressants): 300 ng/mL Performed By: #### D RUGRPD ####[facility] [address] [place], [place] [address]Dr. Thomas Sanchez DRUG CUT HEADER DRUG CLASS TEST SYSTEM CUT-OFF CONCENTRATIONS ARE FOLLOWS: Normal [facility] Comment on above: Performed By: #### D RUGRPD ####[facility] [address] [id number]. Thomas Sanchez mAMP Negative Normal NEGATIVE [facility] Comment on above: Performed By: #### D RUGRPD ####[facility] [address] [id number]. Thomas Sanchez MTD Negative Normal NEGATIVE [facility] Comment on above: Performed By: #### D RUGRPD ####[facility] [address] [place], [place] [id number]. Thomas Sanchez OPI Negative Normal NEGATIVE [facility] Comment on above: Performed By: #### D RUGRPD ####[facility] [address] [address]Dr. Yieric Sanchez OXY Negative Normal NEGATIVE [facility] Comment on above: Performed By: #### D RUGRPD ####[facility] [address] [address]Dr. Thomas Sanchez PCP Negative Normal NEGATIVE [facility] Comment on above: Performed By: #### D RUGRPD ####[facility] [address] [address]Dr. Thomas Sanchez PPX Negative Normal NEGATIVE [facility] Comment on above: Performed By: #### D RUGRPD ####[facility] [address] [address]Dr. Thomas Sanchez TCA Negative Normal NEGATIVE [facility] Comment on above: Performed By: #### D RUGRPD ####[facility] [address] [address]Dr. Thomas Sanchez THC Negative Normal NEGATIVE [facility] Comment on above: Performed By: #### D RUGRPD ####[facility] [address] [address]Dr. Thomas Sanchez TYPE AND SCREENon 11-10-2022 TYPE AND SCREEN Positive Normal [facility] Comment on above: Performed By: #### T NS #### [facility] [address] [address] [address] Thomas Sanchez US PREG BIOPHY W NON STRESSo n 11-02-2022 US PREG BIOPHY W NON STRESS EXAMINATION: US PREG BIOPHY W NON STRESS HISTORY: Excessive growth affecting management of mother COMPARISON: Ultrasound biophysical 10/16/2022 FINDINGS: BREATHING MOVEMENTS: 2 GROSS BODY MOVEMENTS: 2 TONE: 2 QUALITATIVE AMNIOTIC FLUID VOLUME: 2 PRESENTATION: CEPHALIC HEART RATE: 138.5 bpm bpm. AMNIOTIC FLUID VOLUME: 12.9 cm GESTATIONAL AGE: 37 weeks 4 days CONCLUSION: Total biophysical profile score 8. Electronically authenticated by: DALTON ARREGUIN Date: 2022-11-01 23:18 [facility] GROUP B STREP CULTUREon 040 S. agalactiae Ag Ql (Unsp spec) Isolate 1 Streptococcus agalactiae Heavy growth of ORGANISM 1 Streptococcus agalactiae ANTIBIOTIC M.I.C RX STATUS Benzylpenicillin <=0.06 S F Ampicillin <=0.25 S F Cefotaxime <=0.12 S F Ceftriaxone <=0.12 S F Levofloxacin 0.5 S F Inducible Clindamycin Resistance Neg NEG F Erythromycin >=8 R F Clindamycin >=1 R F Linezolid <=2 S F Vancomycin 0.5 S F Tetracycline >=16 R F Normal [facility] Comment on above: Performed By: #### 4 [id number] #### [facility] [address] [place] [address] Dr. Thomas Sanchez US PREG BIOPHY W NON STRESSo n 10-16-2022 US PREG BIOPHY W NON STRESS EXAMINATION: US PREG BIOPHY W NON STRESS HISTORY: Excessive growth affecting management of mother COMPARISON: No relevant comparison available. TECHNIQUE: Ultrasound biophysical profile was performed in the radiology department. FINDINGS: BREATHING MOVEMENTS: 2.0 GROSS BODY MOVEMENTS: 2.0 TONE: 2.0 QUALITATIVE AMNIOTIC FLUID VOLUME: 2.0 PRESENTATION: CEPHALIC HEART RATE: 154.3 bpm H.B./min AMNIOTIC FLUID VOLUME: 10.5 cm cm GESTATIONAL AGE: 35 weeks 4 days CONCLUSION: Total biophysical profile score: 8.0 Electronically authenticated by: MACHELLE PRUITT Date: 2022-10-16 15:01 Normal [facility] US PREG GROWTHon 10-16-2022 US PREG GROWTH EXAMINATION: US PREG GROWTH HISTORY: Excessive growth affecting management of mother COMPARISON: No relevant comparison available. FINDINGS: Heart Rate: 154.3 bpm Amniotic Fluid Volume: 10.5 cm Number: 1.0 Position: Cephalic presentation, longitudinal lie Maximum Vertical Pocket: 1.9 cm cm 1.3 cm cm 4.9 cm cm 2.3 cm cm BIOMETRY: BPD: 8.6 cm cm; 34 weeks 5 days; 30% HC: 32.2 cmcm; 36 weeks 2 days, 36% AC: 33.1 cm cm; 37 weeks 0 days, 90% FL: 7.0 cm cm; 35 weeks 6 days; 53.6 % % EFW: 2923.1 grams, 6 lbs. 7 oz., 72% FL/AC: 21.2 FL/BPD: 81.4 HC/AC: 1.0 GESTATIONAL AGE: Age by EDC: 35 weeks 4 days JOLYNN by EDC: 11/16/2022 Age by US: 36 weeks 0 days JOLYNN by US: 11/13/2022 IMPRESSION: Normal interval growth. Electronically authenticated by: MACHELLE PRUITT Date: 2022-10-16 15:03 Normal [facility] US PREG BIOPHY W NON STRESSo n 10-02-2022 US PREG BIOPHY W NON STRESS EXAMINATION: US PREG BIOPHY W NON STRESS HISTORY: Excessive growth affecting management of mother COMPARISON: Ultrasound biophysical 09/25/2022 FINDINGS: BREATHING MOVEMENTS: 2.0 GROSS BODY MOVEMENTS: 2.0 TONE: 2.0 QUALITATIVE AMNIOTIC FLUID VOLUME: 2.0 PRESENTATION: CEPHALIC HEART RATE: 152.5 bpm bpm. AMNIOTIC FLUID VOLUME: 15.4 cm GESTATIONAL AGE: 33 weeks 4 days CONCLUSION: Total biophysical profile score 8.0. Electronically authenticated by: DALTON ARREGUIN Date: 2022-10-02 15:27 Normal [facility] US PREG BIOPHY W NON STRESSo n 09-25-2022 US PREG BIOPHY W NON STRESS EXAMINATION: US PREG BIOPHY W NON STRESS HISTORY: Large for gestation age fetus COMPARISON: Ultrasound anatomy 06/30/2022 FINDINGS: BREATHING MOVEMENTS: 2.0 GROSS BODY MOVEMENTS: 2.0 TONE: 2.0 QUALITATIVE AMNIOTIC FLUID VOLUME: 2.0 PRESENTATION: Cephalic HEART RATE: 135.0 bpm bpm. AMNIOTIC FLUID VOLUME: 10.3 cm GESTATIONAL AGE: 32 weeks 4 days CONCLUSION: Total biophysical profile score 8.0. Electronically authenticated by: DALTON ARREGUIN Date: 2022-09-25 15:14 Normal [facility] US PREG GROWTHon 09-25-2022 US PREG GROWTH EXAMINATION: US PREG GROWTH HISTORY: Large for gestation age fetus COMPARISON: Ultrasound anatomy 06/30/2022 FINDINGS: Heart Rate: 135.0 bpm Number: 1.0 Position: Cephalic Amniotic Fluid Volume: 10.3 cm Maximum Vertical Pocket: 3.2 cm BIOMETRY: BPD: 8.2 cm cm; 32 weeks 5 days; 48% HC: 29.3 cmcm; 32 weeks 2 days; 11% AC: 28.7 cm cm; 32 weeks 5 days; 54% FL: 6.3 cm cm; 32 weeks 3 days; 33% EFW: 2003.9 grams; 40% FL/AC: 21.8 FL/BPD: 76.7 HC/AC: 1.0 GESTATIONAL AGE: Age by EDC: 32 weeks 4 days JOLYNN by EDC: 11/16/2022 Age by US: 32 weeks 4 days JOLYNN by US: 11/16/2022 IMPRESSION: 1. Single live intrauterine with growth detailed above. Electronically authenticated by: DALTON ARREGUIN Date: 2022-09-25 15:32 Normal [facility] GTT 3 HR PREGon 09-04-2022 Glucose [Mass/Vol] 87 mg/dL Normal 74-[address] [facility] Comment on above: Performed By: #### 4 [id number] #### [facility] [address] [address] [address] Thomas Sanchez Glucose [Mass/Vol] 167 mg/dL Normal [facility] Comment on above: Performed By: #### 4 [id number] #### [facility] [address] [address] [address] Thomas Sanchez Glucose [Mass/Vol] 118 mg/dL Normal [facility] Comment on above: Performed By: #### 4 [id number] #### [facility] [address] [address] [address] Thomas Sanchez Glucose [Mass/Vol] 112 mg/dL Normal [facility] Comment on above: Performed By: #### 4 [id number] #### [facility] [address] [address] [address] Thomas Sanchez Covid-19 PCR (CVDTB)on 08-19 SARS-CoV-2 (COVID-19) RNA RENEE+probe Ql (Unsp spec) Not detected Normal NOT DETECTED [facility] Comment on above: Result Comment: This test is not yet approved or cleared by the [place] FDA. When there are no FDA-approved or cleared tests available, and other criteria are met, FDA can make tests available under an emergency access mechanism called an Emergency Use Authorization (EUA). The EUA for this test is supported by the [place] of Health and Human Service's (HHS's) declaration that circumstances exist to justify the emergency use of in vitro diagnostics for the detection and/or diagnosis of the virus that causes COVID-19. This EUA will remain in effect (meaning this test can be used) for the duration of the COVID-19 declaration justifying emergency of IVDs, unless it is terminated or revoked by FDA (after which the test may no longer be used). When diagnostic testing is negative, the possibility of a false negative should be considered in the context of a patient's recent exposures and the presence of clinical signs and symptoms consistent with SARS-CoV-2. Performed By: #### A 1C #### [facility] [address] [place] [address] Dr. Thomas Sanchez GROUP A STREP CULTUREon 08-19 S. pyogenes Ag Ql (Unsp spec) Culture Observations: NEGATIVE FOR GROUP A STREPTOCOCCUS. Normal [facility] Comment on above: Performed By: #### A 1C #### [facility] [address] [place] [address] Dr. Thomas Sanchez INFLUENZA A AND B AGon 08-29 INFLUANEGH SEE BELOW Normal [facility] Comment on above: Result Comment: Nega tive for Flu A protein angiten. Infection due to Flu A cannot be ruled out. Flu A angiten in the sample may be below the detection limit of the test. Performed By: #### I NFLUAB ####[facility] [address] [id number] Sanchez INFLUBNEGH SEE BELOW Normal [facility] Comment on above: Result Comment: Nega tive for Flu B protein antigen. Infection due to Flu B cannot be ruled out. Flu B antigen in the sample may be below the detection limit of the test. Performed By: #### I NFLUAB ####[facility] [address] [id number] Sanchez INFLUENZA A AG Negative Normal NEGATIVE SEE COMMENT [facility] Comment on above: Performed By: #### I NFLUAB ####[facility] [address] [place], [place] [id number]. Thomas Sanchez INFLUENZA B AG Negative Normal NEGATIVE SEE COMMENT [facility] Comment on above: Performed By: #### I NFLUAB ####[facility] [address] [place], [place] [address]Wq. Thomas Sanchez STREPT SCREENon 08-29-2022 STREP SCREEN A Negative Normal NEGATIVE The [facility] Comment on above: Performed By: #### G RASTCX, SSCRN ####[facility] [address] [place], [place] [address]It. Thomas Sanchez ANTIBODY SCREENon 08-17-2022 Antibody ID Anti-E Present [facility] ANTIBODY TITERon 08-17-2022 Ab Titer 1:8 AHG [facility] Antibody ID Anti-E Present [facility] Antibody Screenon 08-17-2022 Antibody screen Positive [facility] Comment on above: Performed By: #### A BSN #### [address] [address] [employer]wear Factory Worker: Braulio Narayanan MD Antibody Titeron 08-17-2022 Antibody Titer Antibody Anti-E Present Titer 1:8 AHG [facility] Comment on above: Performed By: #### A BTT #### [address] [address] [employer]wear Factory Worker: Braulio Narayanan MD Glucose Dave Scr 50gon 2022 Glucose [Mass/Vol] 172 mg/dL High 70-135 [facility] Comment on above: Performed By: #### G LUSC #### [address] [address] [employer]wear Factory Worker: Braulio Narayanan MD Glu Administered via 50G COLA [facility] Comment on above: Performed By: #### G LUSC #### [address] [address] [employer]wear Factory Worker: Braulio Narayanan MD Glucose tolerance, 1 houron 08-17-2022 GLU ADMN 50G COLA [facility] Glucose tolerance screen 50g 172 mg/dL High 70 - 135 mg/dL [facility] Interpretation and review of laboratory results Abnormal [facility] Vivian Kiton 08-17-2022 Vivian Kit Forwarded to [facility] Comment on above: Performed By: #### N ATER #### [facility] [address] [place] [address] Footwear Factory Worker: Braulio Narayanan MD CHLAMYDIA/GONOCOCCUS RENEE ( AB/URINE/PAPon 07-31-2022 Chlamydia trachomatis, RENEE Negative Normal Negative [facility] Comment on above: Performed By: #### A 1C #### [facility] [address] [address] [address] Thomas Sanchez Neisseria gonorrhoeae, RENEE Negative Normal Negative [facility] Comment on above: Performed By: #### A 1C #### [facility] [address] [address] [address] Thomas Sanchez PAP ACOG PANEL 2: 21 to 29on 07-31-2022 . . Normal [facility] Comment on above: Performed By: #### 4 [id number] #### [facility] [address] [address] [address] Thomas Sanchez Age Gdln ACOG Testing - Normal [facility] Comment on above: Performed By: #### 4 [id number] #### [facility] [address] [address] [address] Thomas Sanchez DIAGNOSIS: Comment Normal [facility] Comment on above: Result Comment: NEGA TIVE FOR INTRAEPITHELIAL LESION OR MALIGNANCY. Performed By: #### 4 [id number] #### [facility] [address] [address] [address] Thomas Sanchez Methodology: Comment Normal [facility] Comment on above: Result Comment: This liquid based ThinPrep(R) pap test was screened with the use of an image guided system. Performed By: #### 4 [id number] #### [facility] [address] [place] [address] Dr. Thomas Sanchez Note: Comment Normal [facility] Comment on above: Result Comment: The Pap smear is a screening test designed to aid in the detection of premalignant and malignant conditions of the uterine cervix. It is not a diagnostic procedure and should not be used as the sole means of detecting cervical cancer. Both false-positive and false-negative reports do occur. . Performed By: #### 4 [id number] #### [facility] [address] [place] [address] Dr. Thomas Sanchez Performed by: Comment Normal [facility] Comment on above: Result Comment: Jose Luis Oscar, Adult Day Care Worker (ASCP) Performed By: #### 4 [id number] #### [facility] [address] [place] [address] Dr. Thomas Sanchez Reflex Criteria: Comment Normal [facility] Comment on above: Result Comment: The HPV DNA reflex criteria were not met with this specimen result therefore, no HPV testing was performed. . Performed By: #### 4 [id number] #### [facility] [address] [place] [address] Dr. Thomas Sanchez Specimen adequacy: Comment Normal [facility] Comment on above: Result Comment: Sati sfactory for evaluation. Endocervical and/or squamous metaplastic cells (endocervical component) are present. Performed By: #### 4 [id number] #### [facility] [address] [place] [address] Dr. Thomas Sanchez VAGINITIS/VAGINOSIS DNA PROB Tomás 07-30-2022 Qing species Negative Normal Negative [facility] Comment on above: Performed By: #### V AGINT #### [facility] [address] [place] [address] Dr. Thomas Sanchez Gardnerella vaginalis Negative Normal Negative [facility] Comment on above: Performed By: #### V AGINT #### [facility] [address] [place] [address] Dr. Thomas Sanchez Trichomonas vaginalis Negative Normal Negative [facility] Comment on above: Performed By: #### V AGINT #### [facility] [address] [place] [address] Dr. Thomas Sanchez PREG INCOMPLETE ANATOMYon 07-28-2022 US PREG INCOMPLETE ANATOMY EXAMINATION: US PREG INCOMPLETE ANATOMY HISTORY: screening COMPARISON: Ultrasound anatomy FINDINGS: Presentation: Breech Heart rate: 149 bpm Anatomy: Adequate visualization of the nose and lips/hard palate. GA: 24 weeks 1 day JOLYNN: 11/16/2022 IMPRESSION: 1. Single live intrauterine . 2. Visualization of the hard palate; no appreciable abnormality. Electronically authenticated by: DALTON ARREGUIN Date: 2022-07-28 14:13 Normal [facility] AFP MATERNAL FOR SPINA BIFID Aon 07-15-2022 AFP MoM [facility] Comment on above: Performed By: #### A 1C #### [facility] [address] [place] [address] Dr. Thomas Sanchez AFP Value TNP [facility] Comment on above: Result Comment: Test not performed Performed By: #### A 1C #### [facility] [address] [place] [address] Dr. Thomas Sanchez AFP, Serum for Spina Bifida [facility] Comment on above: Performed By: #### A 1C #### [facility] [address] [place] [address] Dr. Thomas Sanchez Comment [facility] Comment on above: Performed By: #### A 1C #### [facility] [address] [address] [address] Thomas Jaramillo Age Collection Date [facility] Comment on above: Performed By: #### A 1C #### [facility] [address] [place] [address] Dr. Thomas Sanchez Gestat, Age Based on [facility] Comment on above: Performed By: #### A 1C #### [facility] [address] [place] [address] Dr. Thomas Sanchez Insulin Dep Diabetes [facility] Comment on above: Performed By: #### A 1C #### [facility] [address] [place] [address] Dr. Thomas Sanchez Interpretation [facility] Comment on above: Performed By: #### A 1C #### [facility] [address] [place] [address] Dr. Thomas Sanchez Maternal Age at JOLYNN [facility] Comment on above: Performed By: #### A 1C #### [facility] [address] [address] [address] Thomas Sanchez Multiple Gestation [facility] Comment on above: Performed By: #### A 1C #### [facility] [address] [address] [address] Thomas Sanchez OSBR Risk 1 IN [facility] Comment on above: Performed By: #### A 1C #### [facility] [address] [place] [address] Dr. Thomas Sanchez PDF [facility] Comment on above: Performed By: #### A 1C #### [facility] [address] [place] [address] Dr. Thomas Sanchez Race [facility] Comment on above: Performed By: #### A 1C #### [facility] [address] [place] [address] Dr. Thomas Sanchez Test Results: REFERT [facility] Comment on above: Result Comment: Plea se refer to the following specimen for additional lab results. See:[phone] Performed By: #### A 1C #### [facility] [address] [place] [address] Dr. Thomas Sanchez Tracking [facility] Comment on above: Performed By: #### A 1C #### [facility] [address] [place] [address] Dr. Thomas Sanchez Weight [facility] Comment on above: Performed By: #### A 1C #### [facility] [address] [place] [address] Dr. Thomas Sanchez US PREG ANATOMY SINGLEon US PREG ANATOMY SINGLE EXAMINATION: US PREG ANATOMY SINGLE HISTORY: anatomy study COMPARISON: No relevant comparison available. TECHNIQUE: Transabdominal sonographic examination was performed for obstetrical and evaluation. FINDINGS: Number: 1 Heart Rate: 149.0 bpm H.B. /min Amniotic Fluid Volume: Subjectively normal Placental Location: ANTERIOR with lower margin 5.6 cm from os. Cervix Length: 4.5 cm, closed. ANATOMY: Normal Structures -cerebellum, choroid plexus, cisterna magna, lateral cerebral ventricles, orbits, midline falx, four-chamber heart, RVOT, LVOT, stomach, kidneys, bladder, umbilical cord insertion into abdomen, three-vessel cord, cervical spine, thoracic spine, lumbar spine, sacral spine, right upper extremity, left upper extremity, right lower extremity, left lower extremity. SUBOPTIMALLY SEEN: Hard palate ABNORMALITIES: None BIOMETRY: BPD: 4.6 cm 20 weeks 0 days HC: 17.4 cm 20 weeks 0 days AC: 15.0 cm 20 weeks 2 days FL: 3.4 cm 20 weeks 5 days EFW:349.3 grams; 59% FL/AC: 22.6 FL/BPD: 73.5 HC/AC: 1.2 GESTATIONAL AGE: Age by EDC: 20 weeks 1 days JOLYNN by EDC: 11/16/2022 Age by current US: 20 weeks 2 days JOLYNN by current US: 11/15/2022 IMPRESSION: 1. Single live intrauterine with growth detailed above. 2. Suboptimal visualization of the hard palate due to position. Electronically authenticated by: DALTON ARREGUIN Date: 2022-06-30 16:16 [facility] ANTIBODY ID PANELon 05-11-20 22 ANTIBODY ID PANEL Antibody ID Anti-E Blood Bank Notes TESTING DONE AT [facility] Comment on above: Performed By: #### A BID #### [facility] [address] [address] [address] Thomas Sanchez RPR QUANTon 05-07-2022 Rapid Plasma Reagin, Quant Non-Reactive Normal NonRea<1:1 [facility] Comment on above: Result Comment: Hermelinda mcqueen Note: This test does not meet current guidelines for screening and diagnosis of syphilis. This test is intended for following treatment response in patients being treated for syphilis infection. To screen for syphilis infection, a reflex cascade that includes both RPR and a treponema-specific assay should be utilized, such as Treponema pallidum (Syphilis) Screening [place] (473557) or Rapid Plasma Reagin (RPR) Test With Reflex to Quantitative RPR and Confirmatory Treponema pallidum Antibodies (230413). Performed By: #### A 1C #### [facility] [address] [place] [address] Dr. Thomas Sanchez HEP B SURFACE ANTIGEN SCREEN on 04-29-2022 HBsAg Screen Negative Normal Negative [facility] Comment on above: Performed By: #### H BSANS #### [facility] [address] [address] [address] Thomas Sanchez HEPATITIS C VIRUS AB W/ REFL EX QUANTon 04-29-2022 HCV AB <0.1 Normal 0.0-0.9 [facility] Comment on above: Performed By: #### A 1C #### [facility] [address] [place] [address] Dr. Thomas Sanchez Interpretation: Comment Normal [facility] Comment on above: Result Comment: Nega tive Not infected with HCV, unless recent infection is suspected or other evidence exists to indicate HCV infection. Performed By: #### A 1C #### [facility] [address] [place] [address] Dr. Thomas Sanchez HIV 1 AND 2 WITH REFLEXon HIV Screen 4th Generation wRfx Non-Reactive Normal Non Reactive [facility] Comment on above: Result Comment: HIV Negative HIV-1/HIV-2 antibodies and HIV-1 p24 antigen were NOT detected. There is no laboratory evidence of HIV infection. Performed By: #### H IV12 ####[facility] [address] [address]Dr. Thomas Sanchez RUBELLA AB IGGon 04-29-2022 Rubella Antibodies, IgG 3.00 index Normal Immune >0.99 [facility] Comment on above: Result Comment: Non- immune <0.90 Equivocal 0.90 - 0.99 Immune >0.99 Performed By: #### R UBIGG ####[facility] [address] [address]Dr. Thomas Sanchez CBC AUTO DIFFon 04-28-2022 BASO # 0.0 103/ul Normal 0.0-0.1 [facility] Comment on above: Performed By: #### A 1C #### [facility] [address] [place] [address] Dr. Thomas Sanchez Basophils/100 WBC (Bld) 0.3 % Normal 0.2-2.0 [facility] Comment on above: Performed By: #### A 1C #### [facility] [address] [place] [address] Dr. Thomas Sanchez EO # 0.1 103/ul Normal 0.0-0.7 [facility] Comment on above: Performed By: #### A 1C #### [facility] [address] [place] [address] Dr. Thomas Sanchez Eosinophils/100 WBC (Bld) 1.1 % Normal 0.9-7.0 [facility] Comment on above: Performed By: #### A 1C #### [facility] [address] [place] [address] Dr. Thomas Sanchez Erythrocyte distribution width (RBC) [Ratio] 12.3 % Normal 11.0-15.0 [facility] Comment on above: Performed By: #### A 1C #### [facility] [address] [place] [address] Dr. Thomas Sanchez Hematocrit (Bld) [Volume fraction] 39.0 % Normal 36.0-48.0 [facility] Comment on above: Performed By: #### A 1C #### [facility] [address] [place] [address] Dr. Thomas Sanchez Hemoglobin (Bld) [Mass/Vol] 13.7 g/dL Normal 12.0-16.0 [facility] Comment on above: Performed By: #### A 1C #### [facility] [address] [place] [address] Dr. Thomas Sanchez IG # 0.02 10e3/ul Normal 0.00-0.03 [facility] Comment on above: Performed By: #### A 1C #### [facility] [address] [place] [address] Dr. Thomas Sanchez IG % 0.2 % Normal 0.0-0.5 [facility] Comment on above: Performed By: #### A 1C #### [facility] [address] [place] [address] Dr. Thomas Sanchez LYMPH # 3.3 103/ul Normal 1.2-3.8 [facility] Comment on above: Performed By: #### A 1C #### [facility] [address] [place] [address] Dr. Thomas Sanchez Lymphocytes/100 WBC (Bld) 37.7 % Normal 20.5-60.0 [facility] Comment on above: Performed By: #### A 1C #### [facility] [address] [place] [address] Dr. Thomas Sanchez MANUAL DIFF REQ NO Normal [place] Comment on above: Performed By: #### A 1C #### [facility] [address] [place] [address] Dr. Thomas Sanchez MCH (RBC) [Entitic mass] 30.0 pg Normal 26.7-34.0 [facility] Comment on above: Performed By: #### A 1C #### [facility] [address] [place] [address] Dr. Thomas Sanchez MCHC (RBC) [Mass/Vol] 35.1 g/dL Normal 29.9-35.2 [facility] Comment on above: Performed By: #### A 1C #### [facility] [address] [place] [address] Dr. Thomas Sanchez MCV (RBC) [Entitic vol] 85.3 fL Normal 81.0-99.0 [facility] Comment on above: Performed By: #### A 1C #### [facility] [address] [place] [address] Dr. Thomas Sanchez MONO # 0.6 103/ul Normal 0.3-0.8 [facility] Comment on above: Performed By: #### A 1C #### [facility] [address] [place] [address] Dr. Thomas Sanchez Monocytes/100 WBC (Bld) 6.3 % Normal 1.7-12.0 [facility] Comment on above: Performed By: #### A 1C #### [facility] [address] [place] [address] Dr. Thomas Sanchez NEUT # 4.8 103/ul Normal 1.4-6.5 [facility] Comment on above: Performed By: #### A 1C #### [facility] [address] [place] [address] Dr. Thomas Sanchez Neutrophils/100 WBC (Bld) 54.4 % Normal 43.0-75.0 [facility] Comment on above: Performed By: #### A 1C #### [facility] [address] [place] [address] Dr. Thomas Sanchez Platelet mean volume (Bld) [Entitic vol] 9.5 fL Normal 9.5-13.5 [facility] Comment on above: Performed By: #### A 1C #### [facility] [address] [place] [address] Dr. Thomas Sanchez PLT 164 103/ul Normal 150-450 [facility] Comment on above: Performed By: #### A 1C #### [facility] [address] [place] [address] Dr. Thomas Sanhcez RBC 4.57 106/ul Normal 4.20-5.40 [facility] Comment on above: Performed By: #### A 1C #### [facility] [address] [place] [address] Dr. Thomas Sanchez WBC 8.8 103/ul Normal 4.0-11.0 [facility] Comment on above: Performed By: #### A 1C #### [facility] [address] [place] [address] Dr. Thomas Sanchez CULTURE URINEon 04-28-2022 CULTURE URINE Culture Observations : LIGHT GROWTH OF MIXED GENITAL ELDER. NO POTENTIAL PATHOGENS SEEN. Normal [facility] Comment on above: Performed By: #### U RCX #### [facility] [address] [place] [address] Dr. Thomas Sanchez GLYCOHEMOGLOBIN A1Con 2021 ADA RECOMMENDATION SEE BELOW Normal [facility] Comment on above: Result Comment: ADA RECOMMENDED LIMIT 4.0 - 6.0 ADA THERAPEUTIC TARGET < 7.0 ACTION SUGGESTED > 7.0 Performed By: #### A 1C #### [facility] [address] [place] [address] Dr. Thomas Sanchez Glucose [Mass/Vol] 91 mg/dL Normal [facility] Comment on above: Performed By: #### A 1C #### [facility] [address] [place] [address] Dr. Thomas Sanchez HbA1c (Bld) [Mass fraction] 4.8 % Normal 4.5-6.2 [facility] Comment on above: Performed By: #### A 1C #### [facility] [address] [place] [address] Dr. Thomas SIMPSON BOX TEST PT SEND OUTo n 04-28-2022 SENT TO REF LAB 04/28/2022 Normal [place] Comment on above: Performed By: #### N BOX #### [facility] [address] [place] [address] Dr. Thomas Sanchez TYPE AND SCREENon 04-28-2022 TYPE AND SCREEN Positive Normal [place] Comment on above: Performed By: #### T NS #### [facility] [address] [place] [address] Dr. Thomsa Sanchez CBC AUTO DIFFon 04-04-2022 BASO # 0.0 103/ul Normal 0.0-0.1 [facility] Comment on above: Performed By: #### A 1C #### [facility] [address] [place] [address] Dr. Thomas Sanchez Basophils/100 WBC (Bld) 0.4 % Normal 0.2-2.0 [facility] Comment on above: Performed By: #### A 1C #### [facility] [address] [place] [address] Dr. Thomas Sanchez EO # 0.2 103/ul Normal 0.0-0.7 [facility] Comment on above: Performed By: #### A 1C #### [facility] [address] [place] [address] Dr. Thomas Sanchez Eosinophils/100 WBC (Bld) 2.3 % Normal 0.9-7.0 [facility] Comment on above: Performed By: #### A 1C #### [facility] [address] [place] [address] Dr. Thomas Sanchez Erythrocyte distribution width (RBC) [Ratio] 12.1 % Normal 11.0-15.0 [facility] Comment on above: Performed By: #### A 1C #### [facility] [address] [place] [address] Dr. Thomas Sanchez Hematocrit (Bld) [Volume fraction] 39.3 % Normal 36.0-48.0 [facility] Comment on above: Performed By: #### A 1C #### [facility] [address] [place] [address] Dr. Thomas Sanchez Hemoglobin (Bld) [Mass/Vol] 13.6 g/dL Normal 12.0-16.0 [facility] Comment on above: Performed By: #### A 1C #### [facility] [address] [place] [address] Dr. Thomas Sanchez IG # 0.02 10e3/ul Normal 0.00-0.03 [facility] Comment on above: Performed By: #### A 1C #### [facility] [address] [place] [address] Dr. Thomas Sanchez IG % 0.3 % Normal 0.0-0.5 [facility] Comment on above: Performed By: #### A 1C #### [facility] [address] [place] [address] Dr. Thomas Sanchez LYMPH # 3.3 103/ul Normal 1.2-3.8 [facility] Comment on above: Performed By: #### A 1C #### [facility] [address] [place] [address] Dr. Thomas Sanchez Lymphocytes/100 WBC (Bld) 41.6 % Normal 20.5-60.0 [facility] Comment on above: Performed By: #### A 1C #### [facility] [address] [place] [address] Dr. Thomas Sanchez MANUAL DIFF REQ NO Normal [place] Comment on above: Performed By: #### A 1C #### [facility] [address] [address] [address] Thomas Sanchez MCH (RBC) [Entitic mass] 29.8 pg Normal 26.7-34.0 [facility] Comment on above: Performed By: #### A 1C #### [facility] [address] [place] [address] Dr. Thomas Sanchez MCHC (RBC) [Mass/Vol] 34.6 g/dL Normal 29.9-35.2 [facility] Comment on above: Performed By: #### A 1C #### [facility] [address] [place] [address] Dr. Thomas Sanchez MCV (RBC) [Entitic vol] 86.0 fL Normal 81.0-99.0 [facility] Comment on above: Performed By: #### A 1C #### [facility] [address] [place] [address] Dr. Thomas Sanchez MONO # 0.4 103/ul Normal 0.3-0.8 [facility] Comment on above: Performed By: #### A 1C #### [facility] [address] [place] [address] Dr. Thomas Sanchez Monocytes/100 WBC (Bld) 5.4 % Normal 1.7-12.0 [facility] Comment on above: Performed By: #### A 1C #### [facility] [address] [place] [address] Dr. Thomas Sanchez NEUT # 4.0 103/ul Normal 1.4-6.5 [facility] Comment on above: Performed By: #### A 1C #### [facility] [address] [place] [address] Dr. Thomas Sanchez Neutrophils/100 WBC (Bld) 50.0 % Normal 43.0-75.0 [facility] Comment on above: Performed By: #### A 1C #### [facility] [address] [place] [address] Dr. Thomas Sanchez Platelet mean volume (Bld) [Entitic vol] 9.5 fL Normal 9.5-13.5 [facility] Comment on above: Performed By: #### A 1C #### [facility] [address] [address] [address] Thomas Sanchez PLT 209 103/ul Normal 150-450 [facility] Comment on above: Performed By: #### A 1C #### [facility] [address] [address] [address] Thomas Sanchez RBC 4.57 106/ul Normal 4.20-5.40 [facility] Comment on above: Performed By: #### A 1C #### [facility] [address] [address] [address] Thomas Sanchez WBC 8.0 103/ul Normal 4.0-11.0 [facility] Comment on above: Performed By: #### A 1C #### [facility] [address] [address] [address] Thomas Sanchez PROF 14(COMP METB)on 022 Albumin [Mass/Vol] 2.9 g/dL Critically low 3.4-5.0 [facility] Comment on above: Performed By: #### H RAVINDER, CMP ####[facility] [address] [address]DrDo Sanchez Albumin/Globulin [Mass ratio] 0.8 {ratio} Normal [facility] Comment on above: Performed By: #### H RAVINDER, CMP ####[facility] [address] [address]DrDo Sanchez ALP [Catalytic activity/Vol] 75 U/L Normal 46-116 [facility] Comment on above: Performed By: #### H RAVINDER, CMP ####[facility] [address] [address]DrDo Sanchez ALT [Catalytic activity/Vol] 14 U/L Normal 14-59 [facility] Comment on above: Performed By: #### H RAVINDER, CMP ####[facility] [address] [address]DrDo Sanchez Anion gap [Moles/Vol] 10.2 mmol/L Normal [facility] Comment on above: Performed By: #### H STROPN, CMP ####[facility] [address] [address]Dr. Thomas Sanchez AST [Catalytic activity/Vol] 9 U/L Critically low 15-37 [facility] Comment on above: Performed By: #### H STROPN, CMP ####[facility] [address] [address]Dr. Thomas Sanchez Bilirubin [Mass/Vol] 0.3 mg/dL Normal 0.2-1.0 [facility] Comment on above: Performed By: #### H STROPN, CMP ####[facility] [address] [place], [place] [address]Dr. Thomas Sanchez Calcium [Mass/Vol] 8.8 mg/dL Normal 8.5-10.1 [facility] Comment on above: Performed By: #### H STROPN, CMP ####[facility] [address] [place], [place] [address]Dr. Thomas Sanchez Chloride [Moles/Vol] 105 mmol/L Normal 98-107 [facility] Comment on above: Performed By: #### H STROPN, CMP ####[facility] [address] [place], [place] [address]Dr. Thomas Sanchez CO2 [Moles/Vol] 24.4 mmol/L Normal 21.0-32.0 [facility] Comment on above: Performed By: #### H STROPN, CMP ####[facility] [address] [place], [place] [address]Dr. Thomas Sanchez Creatinine [Mass/Vol] 0.95 mg/dL Normal 0.55-1.02 [facility] Comment on above: Performed By: #### H STROPN, CMP ####[facility] [address] [place], [place] [address]Dr. Thomas Sanchez EGFR-AF ARGENTINE >60 Normal >=60 [facility] Comment on above: Performed By: #### H STROPN, CMP ####[facility] [address] [place], [place] [address]Dr. Thomas Sanchez EGFR-NON AF ARGENTINE >60 Normal >=60 [facility] Comment on above: Performed By: #### H RAVINDER, CMP ####[facility] [address] [address]Dr. Thomas Sanchez Globulin (S) [Mass/Vol] 3.6 g/dL Normal [facility] Comment on above: Performed By: #### H RAVINDER, CMP ####[facility] [address] [place], [place] [address]Dr. Thomas Sanchez Glucose [Mass/Vol] 138 mg/dL Critically high 74-106 [facility] Comment on above: Performed By: #### H RAVINDER, CMP ####[facility] [address] [place], [place] [address]Dr. Thomas Sanchez Potassium [Moles/Vol] 3.6 mmol/L Normal 3.5-5.1 [facility] Comment on above: Performed By: #### H RAVINDER, CMP ####[facility] [address] [place], [place] [address]Dr. Thomas Sanchez Protein [Mass/Vol] 6.5 g/dL Normal 6.4-8.[address] [facility] Comment on above: Performed By: #### H RAVINDER, CMP ####[facility] [address] [place], [place] [address]Dr. Thomas Sanchez Sodium [Moles/Vol] 136 mmol/L Normal 136-145 [facility] Comment on above: Performed By: #### H RAVINDER, CMP ####[facility] [address] [place], [place] [address]Dr. Thomas Sanchez Urea nitrogen [Mass/Vol] 8.0 mg/dL Normal 7.0-18.0 [facility] Comment on above: Performed By: #### H RAVINDER, CMP ####[facility] [address] [place], [place] [address]Dr. Thomas Sanchez Urea nitrogen/Creatinine [Mass ratio] 8.4 mg/mg Normal [facility] Comment on above: Performed By: #### H RAVINDER, CMP ####[facility] [address] [place], [place] [address]Dr. Thomas Sanchez TROPONIN, HIGH SENSITIVITYon 04-04-2022 HSTROP 4.8 pg/mL Normal 4.0-51.3 [facility] Comment on above: Result Comment: CUT- OFF POINTS HAVE BEEN ESTABLISHED BASED ON THE FOURTH UNIVERSAL DEFINITIONS OF MYOCARDIAL INFARCTION. THE UPPER REFERENCE LIMIT (URL) OF TROPONIN, DEFINED THE 99TH PERCENTILE OF cTnI DISTRIBUTION IN A REFERENCE POPULATION, HAS BEEN CONFIRMED THE DECISION THRESHOLD FOR [place] DIAGNOSIS. Performed By: #### H STROPN, CMP ####[facility] [address] [place], [place] [address]Cd. Thomas Sanchez XR CHEST 1 Von 04-04-2022 XR CHEST 1 V EXAM: XR CHEST 1 V HISTORY: CHEST PAIN, UNSPECIFIED COMPARISON: None available TECHNIQUE: Single frontal view chest x-ray FINDINGS: No lobar consolidation, large pleural effusions, pneumothorax, or acute bony abnormality. Cardiac size is unremarkable. IMPRESSION: No radiographic evidence for acute chest abnormality. Electronically authenticated by: ASHLEY BEASLEY Date: 2022-04-04 00:25 [facility] US PREG TVon 03-31-2022 US PREG TV EXAMINATION: US PREG TV HISTORY: Missed period COMPARISON: No relevant comparison available. FINDINGS: GESTATIONAL SAC: Present and normal appearing. POLE: Present and normal appearing. YOLK SAC: Present. CARDIAC: Present. UTERUS: Normal size and appearance. OVARIES: Right: Contains a 3.6 cm simple appearing cyst. Left: Normal. CERVIX: 5.0 cm in length and closed. CUL-DE-SAC: Normal. OTHER: None. AGE BY LMP: Unknown LMP JOLYNN BY LMP: AGE BY US CRL: 7 weeks, 1 day JOLYNN BY US CRL: 11/16/2022 IMPRESSION: 1. Single live intrauterine , 7 weeks 1 day. Electronically authenticated by: DALTON ARREGUIN Date: 2022-03-31 16:30 [facility] C BP Strepon 03-25-2019 C BP Strep order added by sarita aguilar This is strictly a screening test for Strep Group A( Streptococcus pyogenes). No other pathogens will be noted. ---- Final Backup plate negative for Group A Streptococus Resulted at [facility] Comment on above: Performed By: #### . Automated Diff #### [address] [address] ED Clinical Summaryon 2018 ED Clinical Summary [place] [id number] ED Clinical Summary Person Information Name: John Paul Schilling Isabela/[facility] Age: 18 Years : 2000 Sex: Female PCP: FLAKITO Triplett CNP, Amy Jo Marital Status: Single Phone: Race: White Ethnicity: Not or Language: Zimbabwean Visit Reason: Throat pain - Adult; Throat pain Acuity: 4 Enc Type: Emergency Med Service: Emergency Medicine Arrival: 03/23/2019 21:06:04 Discharge: 03/23/2019 22:45:00 LOS: 000 01:39 Checkin: 03/23/2019 21:06:04 Checkout: 03/23/2019 22:45:00 Dispo Type: Home or Self Care Address: [address] [place], [place] [id number] Provider Notes: Diagnosis: 1:Pharyngitis Problems No Problems Documented Smoking Status: Smoking Status Never (less than 100 in lifetime) Functional Status: Sensory Deficits: History of Falls: Mobility Assistance Prior to Admission: ADLs: Current Level of Assistance for Self-Care/Mobility: Cognitive Status: Allergies penicillin (Swelling) Laboratory or Other Results This Visit (last charted value for your 03/23/2019 visit) Misc. Micro Rapid Test 03/23/2019 9:30 PM Strep A: Negative Measurements: Height: Weight: 101.8 kg Blood Pressure: /71 mmHg BMI: Procedures No Procedures Documented Immunizations No Immunizations Documented This Visit Final Med List: New Medications [address], [place] [id number], [phone] clindamycin (clindamycin 300 mg oral capsule) 1 Capsules Oral (given by mouth) every 8 hours for 10 Days. Refills: 0., Take Probiotics while on antibiotic therapy Last Dose: ____ Medications that have not changed Other Medications ARIPiprazole (Abilify 10 mg oral tablet) 1 Tabs Oral (given by mouth) every day. Refills: 1. Last Dose: ____ escitalopram (Lexapro 10 mg oral tablet) 1 Tabs Oral (given by mouth) every day. Refills: 1. Last Dose: ____ [address] [place], [place] [id number], [phone] clindamycin (clindamycin 300 mg oral capsule) 1 Capsules Oral (given by mouth) every 8 hours for 10 Days. Refills: 0., Take Probiotics while on antibiotic therapy Other Medications ARIPiprazole (Abilify 10 mg oral tablet) 1 Tabs Oral (given by mouth) every day. Refills: 1. escitalopram (Lexapro 10 mg oral tablet) 1 Tabs Oral (given by mouth) every day. Refills: 1. Care Team Members: Attending Physician: Paulette Harley CNP Consulting Physician: Referring Physician: Provider Role Assigned Unassigned Joyce Biswas ED Nurse 03/23/2019 21:21:02 03/23/2019 22:08:08 Paulette Harley CNP ED MidLevel 03/23/2019 21:25:18 Follow up: With: Address: When: Take probiotics while on antibiotic therapy With: Address: When: Jodi Triplett [address], [address], [address] [place] [phone] Business (1) Within 2 to 4 days Type Location Start Finish State Established Patient Visit 15 [place] 04/13/2019 11:00:00 04/13/2019 11:15:00 Confirmed Discharge Orders: Discharge Patient 03/23/19 22:33:00 EDT, Discharge to Home, Self Return to Work/School 03/23/19 22:40:00 EDT, 03/23/19 22:40:00 EDT, Patient is Negative for Strep Pharyngitis, 03/23/19 22:40:00 EDT, Pharyngitis Patient Education Information: Self-Care for Sore Throats [facility] Poison Help line: . [facility] Hotline: [place] Tobacco Quit Line: [place], [place]) [address]: [phone] [facility] ([place], [place]) [address]: [phone] [facility] [address], [place]: [phone] Normal [facility] ED Note-Physicianon 03-24-20 ED Note-Physician Chief Complaint Throat pain for 2 days. History of Present Illness Patient is an 18-year-old female presents to the ED for evaluation of throat pain started 2 days ago. Patient denies URI symptoms or cough. Patient denies chest pain, shortness of breath, fever, chills, difficulty opening mouth, difficulty swallowing, generalized body aches, generalized weakness, fatigue. Patient had tonsillectomy 2005. Patient reports history of strep tightness. She denies sickness exposures or recent travel. Denies chronic medical condition. Review of Systems GENERAL: [Negative for weakness, malaise, fever or chills] EYES: [Negative for injury, pain, redness, discharge] ENT: [Negative for injury, pain, nasal congestion, and discharge. Positive for sore throat] NECK: [Negative for injury, pain, swelling, and stiffness] CARDIOVASCULAR: [Negative for chest pain, palpitations] RESPIRATORY: [Negative for shortness of breath, cough, wheezing, and pleuritic chest pain] ABDOMEN/GI: [Negative for pain, nausea, vomiting] BACK: [Negative for injury or bruising] : [Negative for injury, bleeding, discharge, frequency, hematuria, urgency] MUSCULOSKELETAL: [Negative for arthralgias, injury and deformity] SKIN: [Negative for injury, rash, discoloration] NEURO: [Negative for focal weakness, numbness, tingling, dizziness, syncope, and seizure] ALLERGY/IMMUNOLOGY: [Negative for hives, rash, and new allergies] ENDOCRINE: [Negative for neck swelling, polydipsia, polyuria, marked weight changes, heat/cold intolerance] HEMATOLOGIC/LYMPHATIC : [Negative for swollen lymph nodes, abnormal bleeding, and unusual bruising] Physical Exam CONSTITUTIONAL: [well appearing in no acute distress] SKIN: [Warm, dry, and intact without rash] EYES: [extraocular movements are grossly intact, clear conjunctiva] HENT: [Normocephalic, atraumatic, moist mucus membranes. No tonsils present, hx of tonsillectomy. White patches noted on back of throat, uvula appears swollen, phonating without distress, no trismus or excessive salivation.] NECK: [no obvious swelling, normal range of motion. Anterior cervical neuropathy] PULMONARY: [normal chest rise and fall, no respiratory distress or stridor CARDIOVASCULAR: [regular rate, distal extremities are warm and well perfused]] NEUROLOGIC: [normal speech, moves all extremities] MUSCULOSKELETAL: [no gross deformities, atraumatic] PSYCHIATRIC: [normal mood and affect] Vitals & Measurements T: 37 ?C (Tympanic) RR: 16 BP: 129/71 SpO2: 98% DOSE WT: 101.8 kg Additional Vitals Peripheral Pulse Rate: 85 bpm Procedure No qualifying data available. ASA Documentation Medical Decision Making On evaluation, patient is alert, nontoxic in appearance, and not in acute distress. And phonating without distress. Strep negative, pending culture. Patient is afebrile, denies cough, has white patches on back of the throat, and has anterior cervical lymphadenopathy. Patient is penicillin allergic, she was started on clindamycin per pharmacy recommendation. Patient advised to take probiotics daily while on antibiotic therapy. Symptom management, take Tylenol and/or ibuprofen as needed for pain, wrist fluid intake. Follow-up with primary care provider in 2-3 days. Patient advised to return to the ED for new concerning symptoms or if symptoms worsen despite outpatient treatment. The results of pertinent diagnostic studies and exam findings were discussed. The patient?s provisional diagnosis and plan of care were discussed with the patient. The patient expressed understanding of the diagnosis and plan. The nurse was instructed to provide written instructions and appropriate follow-up information. The patient understands their need and responsibility to obtain additional follow-up as instructed. The risks of medications administered and prescribed were discussed with the patient. Reexamination/Reevalu ation Patient is alert, not in acute distress and hemodynamically stable at discharge. Assessment/Plan 1. Pharyngitis Ordered: clindamycin, 1 caps, Oral, q8hr, X 10 days, # 30 caps, 0 Refill(s), 04/02/19 22:31:00 EDT, Pharmacy: [facility] Return to Work/School Orders: Culture Backup Strep Discharge Patient Problem List/Past Medical History Ongoing No qualifying data Historical No qualifying data Procedure/Surgical History REMOVAL OF TONSILS (07/19/2005) Medications Home No active home medications Inpatient No active inpatient medications Prescriptions Abilify 10 mg oral tablet, 10 mg, 1 tabs, Oral, Daily, 1 refills clindamycin 300 mg oral capsule, 300 mg, 1 caps, Oral, q8hr Lexapro 10 mg oral tablet, 10 mg, 1 tabs, Oral, Daily, 1 refills Allergies penicillin (Swelling) Social History Tobacco Never (less than 100 in lifetime) Use:. Lab Results Misc. Micro Rapid Test LATEST RESULTS Strep A 03/23/19 21:30 Negative Diagnostic Results XRay No qualifying data available (XRay) Computerized Tomagraphy No qualifying data available (CT) Ultrasound No qualifying data available (Ultrasound) Magnetic Resonance Imaging No qualifying data available (MRI) Electronically signed by Cricket RIVAS Pauletteraoul Diehl 03/24/19 03:38 EDT Normal [facility] Strep Aon 03-24-2019 Strep A Negative Normal Negative [facility] Comment on above: Result Comment: This test will indicate the presence of Strep A antigen in the specimen from both viable and non-viable Group A Strepcoccus bacteria. Results must be interpreted together with other clinical information available to the clinician. Performed By: #### C [id number] #### [facility] [address] [place] [id number] .eGFRon 03-09-2019 eGFR Non-AA >60 Normal >=60 [facility] Comment on above: Result Comment: Resu lt = 0-14.9 mL/min/1.73 m2 Kidney failure or Dialysis Result = 15-29 mL/min/1.73 m2 Severe decrease in GFR Result = 30-59 mL/min/1.73 m2 Moderate decrease in GFR Result >= 60 mL/min/1.73 m2 Normal or increased GFR Chronic kidney disease is defined as either kidney damage or GFR < 60 mL/min/1.73 m2 for >= 3 months. Kidney damage is defined as pathologic abnormalities or markers of damage including abnormalities in blood or urine tests or imaging studies. This GFR is NOT used for medication dosing. Performed By: #### E GFR #### [address] [address] eGFR AA >60 Normal >=60 [facility] Comment on above: Result Comment: Resu lt = 0-14.9 mL/min/1.73 m2 Kidney failure or Dialysis Result = 15-29 mL/min/1.73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 visit. PHYSICAL EXAMINATION: Vitals: 07/25/24 1132 BP: 128/74 Pulse: 73 Temp: 36.4 C (97.6 F) TempSrc: Oral SpO2: 98% Weight: 136.1 kg (300 lb) Height: 162.6 cm (5' 4 ) Physical Exam Vitals reviewed. Constitutional: Appearance: She is well-developed. She is obese. She is not ill-appearing. HENT: Head: Normocephalic and atraumatic. Nose: Nose normal. Eyes: General: No scleral icterus. Extraocular Movements: Extraocular movements intact. Pupils: Pupils are equal, round, and reactive to light. Cardiovascular: Rate and Rhythm: Normal rate and regular rhythm. Heart sounds: Normal heart sounds. No murmur heard. Pulmonary: Effort: Pulmonary effort is normal. No respiratory distress. Breath sounds: Normal breath sounds. No wheezing. Abdominal: General: Bowel sounds are normal. Palpations: Abdomen is soft. Tenderness: There is no abdominal tenderness. Musculoskeletal: Cervical back: Normal range of motion and neck supple. Lymphadenopathy: Cervical: No cervical adenopathy. Neurological: Mental Status: She is alert and oriented to person, place, and time. Cranial Nerves: No cranial nerve deficit. Psychiatric: Attention and Perception: Attention normal. Mood and Affect: Mood normal. Affect is flat. Speech: Speech normal. Behavior: Behavior is cooperative. Thought Content: Thought content is not paranoid or delusional. Thought content does not include homicidal or suicidal ideation. Cognition and Memory: Cognition normal. Comments: Able to maintain eye contact and share reasonable history. Significant tangential thinking. Labs, imaging, and records: I have personally obtained and reviewed the relevant labs/imaging. ASSESSMENT/PLAN: John Paul was seen today for establish care. Diagnoses and all orders for this visit: Bipolar affective disorder, currently depressed, moderate (CMS-HCC) - lamoTRIgine (LaMICtal) 25 mg tablet; Take 1 tablet (25 mg total) by mouth in the morning and 1 tablet (25 mg total) before bedtime. - hydrOXYzine (ATARAX) 25 mg tablet; Take 1 tablet (25 mg total) by mouth 3 (three) times a day as needed for anxiety. Candidal vaginitis - fluconazole (DIFLUCAN) 100 mg tablet; Take 1 tablet (100 mg total) by mouth in the morning for 3 doses. Dysuria - Chlamydia/Gonorrhoeae by PCR, Urine; Future - Urinalysis; Future Vaginal discharge - Chlamydia/Gonorrhoeae by PCR, Urine; Future - Urinalysis; Future 24-year-old female with complicated past medical history Will initiate Lamictal therapy as this was her hospital discharge medication Given her significant mood fluctuations will hold off on starting any stimulant for ADHD therapy which she was also discharged home on a. Will give her Atarax to use p.r.n. to assist with sleep and anxiety. Had multiple concerns of vaginitis, clinically sound like Diflucan will empirically treat obtain urine samples for further management Follow-up in 1 month PIETRO SANCHEZ MD Family Medicine Physician [facility] Family Medicine / [facility] 07/25/24 This note was completed with voice recognition software. The document was reviewed for errors however some may still be present. Please do not hesitate to contact/Epic msg the author to verify any questions/concerns. documented in this encounter [facility] Evaluation note Note Date & Type Note Facility Evaluation note Diagnosis Bipolar affective disorder, currently depressed, moderate (CMS-HCC)- Primary Bipolar I disorder, most recent episode (or current) depressed, moderate Candidal vaginitis Candidiasis of vulva and vagina Dysuria Vaginal discharge Leukorrhea, not specified as infective documented in this encounter [facility] Instructions Note Date & Type Note Facility Instructions Not on filedocumented in this en counter [facility] Summary Purpose Family History No Family History Records FoundNo Family History Records FoundNo Family History Records FoundNo Family History Records FoundNo Family History Records FoundNo Family History Records Found Advance Directives No Advanced Directives Records Found Date Activated Date Inactivated Comments 01/18/2019 7:12 AM 01/20/2019 9:26 PM Additional Source Comments INFORMATION SOURCE (unrecogn ized section and content) DATE CREATED AUTHOR 04/20/2019 [facility] DATE CREATED AUTHOR AUTHOR'S ORGANIZ ATION 08/18/2022 [facility] DATE CREATED AUTHOR AUTHOR'S ORGANIZ ATION 11/20/2022 [facility] DATE CREATED AUTHOR AUTHOR'S ORGANIZ ATION 11/28/2023 [facility] EPIC DATE CREATED AUTHOR AUTHOR'S ORGANIZ ATION 07/31/2024 [facility] DATE CREATED AUTHOR AUTHOR'S ORGANIZ ATION 08/02/2024 [facility] Reason for Visit (unrecogniz ed section and content) Reason Comments Establish Care Care Teams (unrecognized sec tion and content) Director Professional Services Relationship Specialty Start Date End Date Pietro Sanchez MD [address] [facility] [place] [address] PCP - General Internal Medicine 03/04/24 FOR RECORDS PERTAINING TO PATIENTS WHO ARE OR HAVE BEEN ENROLLED IN A CHEMICAL DEPENDENCY/SUBSTANCEABUSE PROGRAM, SOME INFORMATION MAY BE OMITTED. This clinical summary was aggregated from multiple sources. Caution should be exercised in using it in the provision of clinical care. This summary normalizes information from multiple sources, and as a consequence, information in this document may materially change the coding, format and clinical context of patient data. In addition, data may be omitted in some cases. CLINICAL DECISIONS SHOULD BE BASED ON THE PRIMARY CLINICAL RECORDS. [employer] [facility]. provides no warranty or guarantee of the accuracy or completeness of information in this document.
--- NOTE | 2024-08-16 20:41 | XR_ITS ---
[place] [id number] Patient Name: JOHN PAUL SCHILLING MRN: [id number] date: 2000 Sex: F Assigned Patient Location: ER Current Patient Location: Accession/Order Number: [id number] Exam Date: 08/16/2024 21:10 Report Date: 08/16/2024 23:06 At the request of: BRO HERRERA Procedure: XR chest 1V EXAMINATION: XR chest 1V, , 08/16/2024 6:10 PM PST INDICATION: cough HISTORY: Ordering Provider Reason for Exam: cough Technologist Note: Additional: COMPARISON: None. TECHNIQUE: Chest x-ray: One view. FINDINGS: No pneumothorax, pleural effusion or focal airspace consolidation. Heart is normal in size. Bony thorax is unremarkable. XR/XR chest 1V IMPRESSION: No acute cardiopulmonary process. Electronically authenticated by: FORTINO BRAND Date: 08/16/2024 23:06
--- NOTE | 2024-08-16 20:58 | ED.URI1 ---
HPI - URI/Sore Throat General Chief Complaint: Upper Respiratory Infection Stated Complaint: Vomiting Blood Time Seen by Provider: 08/16/24 20:50 Source: patient History of Present Illness HPI Narrative: Patient is a 24-year-old female who presents to the emergency department for 3-day history of upper respiratory symptoms. She denies objective fevers. She reports bitemporal headache, bilateral ear pressure, significant nasal congestion and stuffiness. She states she has a sore throat and a cough. She states when she coughed earlier today she spit up a small amount of red blood. She has had no persistent vomiting, she has not had any further hemoptysis or coughing up of blood clots. She has no concern for . No medications taken prior to arrival. Related Data Home Medications ?Medication ?Instructions ?Recorded ?Confirmed hydroxyzine HCl 25 mg tablet mg 08/16/24 lamotrigine 25 mg tablet mg 08/16/24 Previous Rx's ?Medication ?Instructions ?Recorded ondansetron 4 mg disintegrating 4 mg PO Q6H PRN nausea and 06/14/24 tablet vomiting #12 tabs albuterol sulfate 90 mcg/actuation 2 inh inhalation Q4H PRN shortness 08/16/24 aerosol inhaler of breath or wheezing #8.5 grams boqxdlnxjuyscyn-hqepmanxsskslgd-TS 10 ml PO Q6H PRN cold symptoms 08/16/24 2 mg-30 mg-10 mg/5 mL oral syrup #200 mL (Bromfed DM) cefdinir 300 mg capsule 300 mg PO BID 10 days #20 caps 08/16/24 ondansetron 4 mg disintegrating 4 mg PO Q6H PRN nausea and 08/16/24 tablet vomiting #12 tabs Allergies Allergy/AdvReac Type Severity Reaction Status Date / Time Penicillins Allergy Severe Hives Verified 08/16/24 20:32 Review of Systems ROS Constitutional Denies: fever or chills Ears, nose, mouth, and throat Reports: throat pain and nasal congestion Cardiovascular Denies: chest pain Respiratory Reports: cough, change in phlegm color, coughing up blood and chest congestion; Denies: shortness of breath Gastrointestinal Denies: nausea or vomiting Integumentary/Breast Denies: rash Neurological Denies: numbness in extremities or weakness in extremities Hematologic/Lymphatic Denies: easy bruising or easy bleeding PFSH PFSH Social History Little interest or pleasure in doing things: not at all Feeling down, depressed, or hopeless: not at all Exam Narrative Exam Narrative: Gen.: Awake, alert, in no distress Head: Normocephalic, atraumatic ENT: Moist mucous membranes; bilateral TMs are mildly erythematous and bulging with fluid, pharyngeal erythema with no tonsillar edema or exudate. Uvula midline with no trismus or drooling Respiratory: No respiratory distress, lungs clear bilaterally, no wheezing or rhonchi Cardio: Regular rate and rhythm Extremities: Moves extremities equally, no injuries noted Psych: Normal mood and affect Neuro: No focal neuro deficit Skin: Warm, dry, intact Constitutional Vital Signs, click to edit/add: Last Vital Signs Temp 98.1 F 08/16/24 20:24 Pulse 92 H 08/16/24 21:01 Resp 18 08/16/24 21:01 BP 118/86 08/16/24 21:01 Pulse Ox 97 08/16/24 21:01 O2 Del Method Room Air 08/16/24 20:24 Course Vital Signs Vital signs: Vital Signs Temperature 98.1 F 08/16/24 20:24 Pulse Rate 98 H 08/16/24 20:24 Respiratory Rate 16 08/16/24 20:24 Blood Pressure 133/81 08/16/24 20:24 Pulse Oximetry 97 08/16/24 20:24 Oxygen Delivery Method Room Air 08/16/24 20:24 Temperature 98.1 F 08/16/24 20:24 Pulse Rate 92 H 08/16/24 21:01 Respiratory Rate 18 08/16/24 21:01 Blood Pressure 118/86 08/16/24 21:01 Pulse Oximetry 97 08/16/24 21:01 Oxygen Delivery Method Room Air 08/16/24 20:24 MDM - URI/Sore Throat MDM Narrative Medical decision making narrative: Patient is positive for strep, negative for flu and COVID. Chest x-ray is unremarkable. Patient given a breathing treatment at her request as she has a history of asthma. Her lungs are clear and she has normal oxygenation with otherwise stable vital signs. She is allergic to penicillin so she will be treated with cefdinir for coverage of strep pharyngitis as well as cough and bilateral otitis media. Bromfed-DM and Zofran given for home as well with an albuterol inhaler. Follow-up with PCP and return to the ER if symptoms change or worsen SUPERVISED APC VISIT, PHYSICIAN ATTESTATION: Based on the medical record the care appears appropriate. ? Medical Records Attestation: I reviewed the patient's medical records. Lab Data Attestation: I reviewed the patient's lab results. Labs: Lab Results 08/16/24 Range/Units 20:40 Influenza Type A Ag Negative Influenza Type B Ag Negative SARS-CoV-2 Ag (CV2AG) Negative (NEGATIVE) Streptococcus Screen Positive A Imaging Data Chest x-ray: Attestation: I have reviewed the pertinent imaging results. Discharge Plan Discharge Chief Complaint: Upper Respiratory Infection Clinical Impression: Acute streptococcal pharyngitis, URI (upper respiratory infection) Patient Disposition: Home, Self-Care Time of Disposition Decision: 21:25 Condition: Good Prescriptions / Home Meds: New albuterol sulfate 90 mcg/actuation HFA aerosol inhaler 2 inh inhalation Q4H PRN (Reason: shortness of breath or wheezing) Qty: 8.5 0RF dediaucyqyweewb-tkzocilii-JY [Bromfed DM] 2-30-10 mg/5 mL syrup 10 ml PO Q6H PRN (Reason: cold symptoms) Qty: 200 0RF ondansetron 4 mg tablet,disintegrating 4 mg PO Q6H PRN (Reason: nausea and vomiting) Qty: 12 0RF cefdinir 300 mg capsule 300 mg PO BID 10 Days Qty: 20 0RF No Action ondansetron 4 mg tablet,disintegrating 4 mg PO Q6H PRN (Reason: nausea and vomiting) Qty: 12 0RF lamotrigine 25 mg tablet hydroxyzine HCl 25 mg tablet Print Language: Greenlandic Instructions: Strep Throat (ED), Upper Respiratory Infection (ED) Referrals: Physician,Non-Staff, MD [Primary Care Provider] - 1 week
[2024-08-16] MEDS: DEXAMETHASONE SOD PHOS 10 MG/ML VIAL PO (21:09)
[2024-08-16] MEDS: ALBUTEROL SULFATE 2.5 MG/3 ML VIAL NEB IH (21:15)
[2024-08-16 21:16] LABS: Influenza Virus A Antigen Negative; Influenza Virus B Antigen Negative; Internal Control Within Normal Limits; Strep A Antigen Screen Positive
[2024-08-16 21:17] LABS: Internal Control Within Normal Limits; SARS-CoV-2 Ag NEGATIVE (NEGATIVE)
[2024-08-16] MEDS: CEFDINIR 300 MG CAPSULE 600 MG PO (22:00)
--- NOTE | 2024-08-16 22:05 | PC.NURSE ---
i gave this patient verbal and written discharge along with 4 e-scripts and this patient voices yes to understanding these. at time of discharge this patient voices no concerns and shows no signs of distress
== END 2024-08-16 22:07 | disposition home or self-care (01) ==
PROVIDERS: Physician Assistant; Emergency Provider Emergency Medicine
DX: J02.0 Streptococcal pharyngitis (principal); J45.909 Unspecified asthma, uncomplicated; Z88.0 Allergy status to penicillin; H66.93 Otitis media, unspecified, bilateral
CPT/HCPCS: 71045; 87804; 87811; 87880; 94640; 99285; J1100

== ENCOUNTER 2025-03-30 19:15 | Emergency (ER) | payer MEDICAID, SELFPAY ==
--- OUTSIDE RECORDS SUMMARY | 2025-03-29 17:48 | XMS_ITS | Encounter Summary ---
Author Organization [email or web address] [facility] tem Address [id number] [address] [place] [address] Care Team Providers Care Cooper Helper Name Role Phone Pietro So MD Primary Care Provider [phone] Reason for Visit * Reason Comments Bee Sting Encounter Details Date Type Department Care Team (Late st Contact Info) Description 03/29/2025 5:48 PM EDT - 03/29/2025 7:23 PM EDT Emergency [facility] - Emergency [address] [place] [id number] Jose Conn MD [address] [place] [address] [address] [place] [address] Bee sting, undetermined intent, initial encounter (Primary Dx); Allergic reaction, initial encounter Discharge Disposition: Home Social History Tobacco Use Types Packs/Day Years Used Date Smoking Tobacco: Never Smokeless Tobacco: Never Alcohol Use Standard Drinks/Week Comments Yes 0 (1 standard drink = 0.6 oz pur e alcohol) PHQ-2 Answer Date Recorded Total Score 22 10/31/2024 PRAPARE - Transportation Answer Date Re corded In the past 12 months, has l ack of transportation kept you from medical appointments or from getting medications? No 02/2023 In the past 12 months, has l ack of transportation kept you from meetings, work, or from getting things needed for daily living? No 08/26/2022 Housing Instability Answer Date Recorde d Are you worried or concerned that in the next two months you may not have stable housing that you own, rent or stay in as a part of a household? No 08/26/2022 Childcare Answer Date Recorded Childcare Unknown 12/22/2018 Employment Answer Date Recorded Employment Unknown 12/22/2018 Hunger Screening Answer Date Recorded Within the past 12 months we worried whether our food would run out before we got money to buy more. Never True 03/29/2025 Within the past 12 months th e food we bought just didn't last and we didn't have money to get more. Never True 03/29/2025 Purpose - Life Answer Date Recorded Purpose and direction in life Unknown Comments Unknown Sex and Gender Information Value Date Recorded Sex Assigned at Not on file Legal Sex Female 11:57 AM EDT Gender Identity Not on file Sexual Orientation Straight 08/26/2022 8: 59 PM EST documented as of this encounter Last Filed Vital Signs Vital Sign Reading Time Taken Comments Blood Pressure 126/77 03/29/2025 6:30 PM EDT Pulse 76 03/29/2025 6:30 PM EDT Temperature - - Respiratory Rate 18 03/29/2025 6:30 PM EDT Oxygen Saturation 98% 03/29/2025 6:30 PM EDT Inhaled Oxygen Concentration - - Weight - - Height 162.6 cm (5' 4 ) 03/29/2025 5:51 PM EDT Body Mass Index - - documented in this encounter Discharge Instructions * Discharge Instructions* Desirae MarieADRIELN-POULTRY SCIENTIST - 03/29/2025 7:12 PM EDT Thank you for choosing us for your medical care. We know you have a choice, and we appreciate you choosing us for your medical concerns! You may receive a survey from the hospital about your visit. We very much appreciate your comments and concerns. Please read all medication insert instructions and side effects when dispensed by the pharmacy. Every medication has side effects, and you may experience any of them. Please call the emergency room with any questions or concerns you have. Please call your doctor for outpatient follow up and recommendations. The emergency room cannot replace ongoing care, and it is important for your personal physician to evaluate you and monitor your health. Return to the ER for increased pain, fever > 101.5, vomiting twice, or any concern you deem emergent. Desirae Marie CNP * Attachments The following attachments cannot be sent through Care Everywhere. * Allergic Reaction ED (Citizen Of [place]) documented in this encounter Medications at Time of Discharge EPINEPHrine (EPIPEN) 0.3 mg/0.3 mL auto-injectorIndic ations:Bee sting, undetermined intent, initial encounter,Allergic reaction, initial encounter Inject 0.3 mL (0.3 mg total) into the appropriate muscle as needed (allergic reaction) for up to 1 dose. 1 each 03/29/2025 hydrOXYzine (ATARAX) 25 mg tabletIndications: Bipolar affective disorder, currently depressed, moderate (CMS-HCC) TAKE 1 TABLET BY MOUTH 3 TIMES A DAY NEEDED FOR ANXIETY. 90 tablet 08/21/2024 mirtazapine (REMERON) 7.5 mg tabletIndications: Bipolar affective disorder, currently depressed, moderate (CMS-HCC),Primary insomnia TAKE 1 TABLET BY MOUTH EVERY DAY NIGHTLY 30 tablet 12/27/2024 venlafaxine XR (EFFEXOR XR) 37.5 mg 24 hr capsuleIndications :Bipolar affective disorder, currently depressed, moderate (CMS-HCC) Take 1 capsule (37.5 mg total) by mouth in the morning. 30 capsule 2 10/31/2024 documented as of this encounter Plan of Treatment Upcoming Encounters Date Type Department Care Team (Late st Contact Info) Description 04/02/2025 11:00 AM EDT Office Visit [facility] [address] [place] [address] [place] [address] Beni Green, [address] [place] [address], [address], [place] [address] documented as of this encounter Visit Diagnoses Diagnosis Bee sting, undetermined intent, initial encounter- Primary Allergic reaction, initial encounter documented in this encounter Administered Medications Inactive Administered Medications - up to 3 most recent administrations Medication Order MAR Action Action Date Dose Rate Site diphenhydrAMINE (BENADRYL) injection 50 mg 50 mg, intravenous, Once, On Makayla 03/29/25 at 1754, For 1 dose, Look-alike/sound-alike medication - verify indication for use. Given 03/29/2025 6:05 PM EDT 50 mg famotidine (PF) (PEPCID) injection 20 mg 20 mg, intravenous, Once, On Makayla 03/29/25 at 1754, For 1 dose, Dilute to total volume of 5 mL with 0.9% sod chl and administer IVP over 2 minutes. Given 03/29/2025 6:02 PM EDT 20 mg methylPREDNISolone sod suc(PF) (Solu-MEDROL) injection 125 mg 125 mg, intravenous, Once, On Makayla 03/29/25 at 1754, For 1 dose, May alter blood glucose or insulin requirements. Look-alike/sound-alike medication - verify indication for use. Given 03/29/2025 6:01 PM EDT 125 mg documented in this encounter Active and Recently Administered Medications Times are shown in EDT. Scheduled Medication Order 03/27/2025 03/28/2025 03/29/2025 diphenhydrAMINE (BENADRYL) injection 50 mg (COMPLETED) 50 mg, intravenous, Once, On Makayla 03/29/25 at 1754, For 1 dose, Look-alike/sound-alike medication - verify indication for use. 180 (Given - Provid er: Tenzin Strauss RN) famotidine (PF) (PEPCID) injection 20 mg (COMPLETED) 20 mg, intravenous, Once, On Makayla 03/29/25 at 1754, For 1 dose, Dilute to total volume of 5 mL with 0.9% sod chl and administer IVP over 2 minutes. 180 (Given - Provid er: Tenzin Strauss RN) methylPREDNISolone sod suc(PF) (Solu-MEDROL) injection 125 mg (COMPLETED) 125 mg, intravenous, Once, On Makayla 03/29/25 at 1754, For 1 dose, May alter blood glucose or insulin requirements. Look-alike/sound-alike medication - verify indication for use. 180 (Given - Provid er: Tenzin Strauss RN) documented in this encounter Additional Health Concerns Assessment Noted Time PHQ-9 Depression Total Score: 22 10/31/2 025 3:03 PM EDT documented as of this encounter Care Teams Cooper Helper Relationship Specialty Start Date End Date Pietro So MD [address] [facility] [address] PCP - General Internal Medicine 03/04/24 documented as of this encounter
--- OUTSIDE RECORDS SUMMARY | 2025-03-30 19:55 | XMS_ITS | Clinical Summary ---
Author Organization [facility] Healthcare Address [address] [place] [address] Care Team Providers Care Monument Letterer Name Role Phone Unavailable Primary Care Provider Unavailabl e Allergies Active Allergy Reactions Criticality Noted Date Comments Bee Venom Shortness of breath High 11/29/2018 Other Reaction(s): Unknown Cephalexin Rash Low 07/25/2021 Penicillin G 09/21/2023 Other Reaction(s): Unknown Penicillins 12/21/2022 Medications citalopram (CeleXA) 20 MG tabletIndications: depression Take 1 tablet (20 mg) by mouth Daily 30 tablet 5 4 Active medroxyPROGESTERon e (Depo-Provera) 150 MG/ML injectionIndicatio ns:Encounter for contraceptive management, unspecified type Inject 1 mL (150 mg) into the shoulder, thigh, or buttocks every 3 (three) months 1 mL 3 4 Active phentermine (Adipex-P) 37.5 MG tabletIndications: Encounter for weight management Take 1 tablet (37.5 mg) by mouth in the morning. Take before meals. 30 tablet 4 Active Social History Tobacco Use Types Packs/Day Years Used Date Smoking Tobacco: Never Assessed Comments Unknown Sex and Gender Information Value Date Recorded Sex Assigned at Not on file Legal Sex Female 11:47 PM EDT Gender Identity Not on file Sexual Orientation Not on file Last Filed Vital Signs Vital Sign Reading Time Taken Comments Blood Pressure 108/74 11/26/2023 9:26 AM EDT Pulse - - Temperature - - Respiratory Rate - - Oxygen Saturation - - Inhaled Oxygen Concentration - - Weight 133 kg (294 lb) 11/26/2023 9:26 AM EDT Height 167.6 cm (5' 6 ) 11/05/2022 12:00 PM EDT Body Mass Index 47.45 11/05/2022 12:00 PM EDT Plan of Treatment Upcoming Encounters Date Type Department Care Team (Late st Contact Info) Description 05/03/2025 10:40 AM EDT Office Visit [facility] [address] [place] [address] Yrn Dykes DO [address] [place] [address] Insurance [employer]
--- OUTSIDE RECORDS SUMMARY | 2025-03-30 19:55 | XMS_ITS | Encounter Summary ---
Author Organization [employer] tem Address [id number] [address] [place] [address] Care Team Providers Care Civil Engineering Specialist Name Role Phone Pietro So MD Primary Care Provider [phone] Encounter Details Date Type Department Care Team (Latest Contact Info) Description 03/20/2025 Travel Social History Tobacco Use Types Packs/Day Years [...] got money to buy more. Never True 02/09/2025 Within the past 12 months th e food we bought just didn't last and we didn't have money to get more. Never True 02/09/2025 Purpose - Life Answer Date Recorded Purpose and direction in life Unknown Comments Unknown Sex and Gender Information Value Date Recorded Sex Assigned at Not on file Legal Sex Female 11:57 AM EDT Gender Identity Not on file Sexual Orientation Straight 08/26/2022 8: 59 PM EST documented as of this encounter Plan of Treatment Upcoming Encounters Date Type Department Care Team (Late st Contact Info) Description 04/02/2025 11:00 AM EDT Office Visit [facility] [address] [place] [address] [place] [address] Beni Green, [address] [facility], [address], [place] [address] documented as of this encounter Visit Diagnoses Not on filedocumented in this encounter Additional Health Concerns Assessment Noted Time PHQ-9 Depression Total Score: 22 10/31/ 025 3:03 PM EDT documented as of this encounter Care Teams Civil Engineering Specialist Relationship Specialty Start Date End Date Pietro So MD [address] [facility] [place] [address] PCP - General Internal Medicine 03/04/24 documented as of this encounter
--- OUTSIDE RECORDS SUMMARY | 2025-03-30 19:55 | XMS_ITS | Encounter Summary ---
Author Organization [facility] tem Address [id number] [address] [place] [address] Care Team Providers Care Hot Mill Operator Name Role Phone Pietro So MD Primary Care Provider [phone] Reason for Visit * Reason Onset Date Comments Sleep Lab 05/27/2020 scheduling Encounter Details Date Type Department Care Team (Late st Contact Info) Description 05/27/2020 Telephone [facility] - Sleep Disorders [address] [place] [phone] Sofia Ornelas, MOLECULAR PATHOLOGIST-SET OFF BLOCKER [address] [place] [address] Sleep Lab (scheduling) Social History Tobacco Use Types Packs/Day Years Used Date Smoking Tobacco: Never Smokeless Tobacco: Never Alcohol Use Standard Drinks/Week Comments No 0 (1 standard drink = 0.6 oz pur e alcohol) Childcare Answer Date Recorded Childcare Unknown 12/22/2018 Employment Answer Date Recorded Employment Unknown 12/22/2018 Comments No Sex and Gender Information Value Date Recorded Sex Assigned at Not on file Legal Sex Female 11:57 AM EDT Gender Identity Not on file Sexual Orientation Straight 08/26/2022 8: 59 PM EST documented as of this encounter Miscellaneous Notes * Telephone Encounter - Ketty Toledo - 05/27/2020 9:21 AM EST 05-08-20 order received 05-09-20 req notes 11-4-20 req notes 05-23-20 notes received 05-27-20 lm for pt to sched * Telephone Encounter - Devi Amador - 05/27/2020 9:21 AM EST Left FU VM for PT to sched * Telephone Encounter - Devi Amador - 05/27/2020 9:21 AM EST Per Peg at [facility] Referral is now closed: Do not sched documented in this encounter Plan of Treatment Upcoming Encounters Date Type Department Care Team (Late st Contact Info) Description 04/02/2025 11:00 AM EDT Office Visit [facility] [address] [place] [address] [place] [address] Beni Green, [address] [facility], [address], [facility] [place] [address] documented as of this encounter Visit Diagnoses Not on filedocumented in this encounter Additional Health Concerns Infection Onset Date Last Indicated Resolved Time COVID-19 Rule-Out 12/31/2021 12/31/2021 01/01/2022 5:57 PM EDT COVID-19 Rule-Out 06/12/2022 06/12/2022 06/12/2022 9:51 PM EST Influenza 06/12/2022 06/12/2022 06/19/2022 11:1 2 PM EST documented as of this encounter Care Teams Hot Mill Operator Relationship Specialty Start Date End Date Pietro So MD [address] [place] [address] PCP - General Internal Medicine 03/04/24 documented as of this encounter
--- OUTSIDE RECORDS SUMMARY | 2025-03-30 19:55 | XMS_ITS | Encounter Summary ---
Author Organization [employer] tem Address [id number] [address] [place] [address] Care Team Providers Care Health Safety Specialist Name Role Phone Pietro So MD Primary Care Provider [phone] Encounter Details Date Type Department Care Team (Latest Contact Info) Description 03/29/2025 Travel Social History Tobacco Use Types Packs/Day [...] Office Visit [facility] [address] [place] [address] [place] [address] Beni Green, [address] [facility], [address] [place] [address] documented as of this encounter Visit Diagnoses Not on filedocumented in this encounter Additional Health Concerns Assessment Noted Time PHQ-9 Depression Total Score: 22 10/31/2 025 3:03 PM EDT documented as of this encounter Care Teams Health Safety Specialist Relationship Specialty Start Date End Date Pietro So MD [address] [facility] [place] [address] PCP - General Internal Medicine 03/04/24 documented as of this encounter
--- OUTSIDE RECORDS SUMMARY | 2025-03-30 19:55 | XMS_ITS | Patient Health Record ---
Author Organization [facility] Address [address] [place] [address] Care Team Providers Care [facility] Pricing Consultant Name Role Phone NAEEM FERGUSON APRN Primary Care Provider Maria M Brown APRN Unavailable [phone] Allergies Allergen (clinical drug ingredient) Drug/Non Drug Allergy documented on EMR Reaction Allergy Type Onset Date Status Penicillin Unknown Drug Allergy Active Reason For Referral No Information Medications Medication SIG (Take, Route, Frequency, Duration) Notes Start Date End Date Status medroxyPROGESTERone Acetate 150 MG/ML INJECT 1ML INTRAMUSCULARLY EVERY 3 MONTHS DIRECTED; Duration: 90 Active buPROPion HCl 100 MG TAKE 1 TABLET BY [facility] TWICE A DAY; Duration: 30 Not-Taking predniSONE 10 MG 1 tablet Orally Once a day; Duration: 7 06/17/2023 Active Vraylar 4.5 MG 1 capsule Orally Onc e a day; Duration: 30 days 03/25/2023 Not-Taking Prazosin HCl 1 MG TAKE 1 CAPSULE BY MOUTH EVERY DAY AT BEDTIME FOR 30 DAYS; Duration: 30 Active traZODone HCl 100 MG 1 tablet at bedtime for sleep disturbance Orally Once a day; Duration: 30 days Active oxyBUTYnin Chloride 5 MG 1 tablet Orally Once a day; Duration: 90 days 03/25/2023 Active Albuterol Sulfate HFA 108 (90 Base) MCG/ACT 1 puff as needed Inhalation every 4 hrs; Duration: 60 days 03/11/2023 Active Azithromycin 250 MG 2 tablets day 1 and 1 tablet each day after Orally daily; Duration: 5 days 06/17/2023 Active traMADol HCl 50 MG 1 tablet as needed f or back pain Orally twice a day; Duration: 30 days 04/08/2023 Active Naproxen 375 MG 1 tablet with food or milk as needed Orally every 12 hrs; Duration: 90 days do not take motrin or aleve while taking this 03/25/2023 Active Sertraline HCl 50 MG 1 tablet for anziet y Orally Once a day; Duration: 30 days 06/17/2023 Active Social History Tobacco Use: Social History Observation Description Date Details (start date - stop date) Never Smoker NA - NA Tobacco Use/Smoking Question Answer Notes Are you a nonsmoker Alcohol Screen (Audit-C) Question Answer Notes Did you have a drink containing alcohol in the p ast year? No Points 0 Interpretation Negative Tobacco use other than smoking: Question Answer Notes Are you an other tobacco user? No Problems Problem Type SNOMED Code ICD Code Onset Dates Problem Status W/U Status Risk Notes Problem Adjustment disorder with mixed anxiety and depressed mood (151661740) Adjustment disorder with mixed anxiety and depressed mood (F43.23) Active confirmed Problem Primary insomnia (8511147) Primary insomnia (F51.01) Active confirmed Problem Chronic pain (33943099) Other chronic pain (G89.29) Active confirmed Problem Sciatica (46640575) Lumbago with sciatica, right side (M54.41) Active confirmed Problem Sciatica (25601680) Lumbago with sciatica, left side (M54.42) Active confirmed Problem Moderate recurrent major depression (62316758) Moderate episode of recurrent major depressive disorder (F33.1) Active confirmed Problem Posttraumatic stress disorder (70370522) PTSD (post-traumatic stress disorder) (F43.10) Active confirmed Problem Degeneration of lumbar intervertebral disc (26357387) Lumbar degenerative disc disease (M51.36) Active confirmed Problem Bladder dysfunction (64143083) Bladder dysfunction (N31.9) Active confirmed Problem Panic disorder (498943817) Panic disorder (F41.0) Active confirmed Problem Mild intermittent asthma (387140214) Mild intermittent asthma, unspecified whether complicated (J45.20) Active confirmed Problem Chronic sinusitis (66837653) Sinusitis, unspecified chronicity, unspecified location (J32.9) Active confirmed Plan Of Treatment Pending Test Test Name Order Date X ray : Spines, lumbosacral 03/25/2023 XRAY LUMBAR SPINE W OBLIQUES 03/25/2023 Test, Urine 03/11/2023 Vitamin D, 1,25 + 25-Hydroxy 03/11/2023 Insurance Providers Payer Name Payer Address Payer Phone Subscriber Number Group Number Insured Name Patient Relationship to Insured Coverage Start Date Coverage End Date [employer] [address] [address] [place] [address] [id number] Megan Webber Self - patient is the insured Medications Administered Medication Instructions Date of Administration Dosage Notes Toradol 06/17/2023 60 mg Patient tolerated injection well and no adverse reaction noted. Lot#[id number] Exp:10/30/2023 Medical (General) History Medical History History ICD Code ADHD Anemia Asthma Chest pain Diabetes Depression PTSD Anxiety Panic Attacks Bipolar Disorder mood swings PPA PPD Surgical History Surgery Date(Month/Year) Tonsils removed Hospitalization History Reason Date(Month/Year) With child
--- OUTSIDE RECORDS SUMMARY | 2025-03-30 19:55 | XMS_ITS | Encounter Summary ---
Author Organization [facility] tem Address [facility] [place] [facility] [id number] [address] [place] [address] Care Team Providers Care Pe Manager Name Role Phone Pietro So MD Primary Care Provider [phone] Encounter Details Date Type Department Care Team (Late st Contact Info) Description 02/12/2025 Results Follow-Up [facility] - Emergency [address] [place] [phone] Mervat Worley RN Chlamydia/GC by PCR Liz Swab Social History Tobacco Use Types Packs/Day Years [...] Office Visit [facility] [address] [facility] [place] [address] Beni Green, [address] [facility], [facility] [address] [place], [place] [address] documented as of this encounter Visit Diagnoses Not on filedocumented in this encounter Additional Health Concerns Assessment Noted Time PHQ-9 Depression Total Score: 22 10/31/ 025 3:03 PM EDT documented as of this encounter Care Teams Pe Manager Relationship Specialty Start Date End Date Pietro So MD [address] [facility] [place], [place] [address] PCP - General Internal Medicine 03/04/24 documented as of this encounter
--- OUTSIDE RECORDS SUMMARY | 2025-03-30 19:55 | XMS_ITS | Clinical Summary ---
Author Organization [facility] tem Address [id number] [address] [place] [address] Care Team Providers Care Music Engineer Name Role Phone Pietro So MD Primary Care Provider [phone] Allergies Active Allergy Reactions Criticality Noted Date Comments Bee Venom Protein (Honey Bee) Shortness Of Breath High 11/29/2018 Cephalexin Rash Low 07/25/2021 Penicillins 08/03/2017 Medications * This document contains information received from the source organization and may not represent a complete record from that organization. hydrOXYzine (ATARAX) 25 mg tabletIndication s:Bipolar affective disorder, currently depressed, moderate (CMS-HCC) TAKE 1 TABLET BY MOUTH 3 TIMES A DAY NEEDED FOR ANXIETY. 90 tablet 5 Active venlafaxine XR (EFFEXOR XR) 37.5 mg 24 hr capsuleIndicatio ns:Bipolar affective disorder, currently depressed, moderate (CMS-HCC) Take 1 capsule (37.5 mg total) by mouth in the morning. 30 capsule 2 5 Active Additional Information Patient not taking.Reported on 12/14/2024 mirtazapine (REMERON) 7.5 mg tabletIndication s:Bipolar affective disorder, currently depressed, moderate (CMS-HCC),Primar y insomnia TAKE 1 TABLET BY MOUTH EVERY DAY NIGHTLY 30 tablet 5 Active EPINEPHrine (EPIPEN) 0.3 mg/0.3 mL auto-injectorInd ications:Bee sting, undetermined intent, initial encounter,Allerg ic reaction, initial encounter Inject 0.3 mL (0.3 mg total) into the appropriate muscle as needed (allergic reaction) for up to 1 dose. 1 each 5 Active HYDROcodone-acet aminophen (NORCO) 5-325 mg per tabletIndication s:Post-op pain Take 1 tablet by mouth every 6 (six) hours as needed for pain for up to 5 days. Max Daily Amount: 4 tablets 20 tablet 025 Active Problems Problem Noted Date Diagnosed Date Encounter for elective induction of labor 2018 Major depressive disorder, single episode, moder ate 12/07/2018 Infestation by bed bug 11/29/2018 Overview (11/29/2018): Bedbug found during office visit @ [facility] along w/ skin lesions c/w bedbugs. Was treated w/ permethrin. High risk teen in third trimester 10/17 Depression 10/25/2017 Resolved Problems Problem Noted Date Diagnosed Date Resolved Date Rectal bleeding 10/27/2018 11/29/2018 Encounters Date Type Department Care Team Description 03/29/2025 5:48 PM EDT - 03/29/2025 7:23 PM EDT Emergency [facility] - Emergency [address] [place] [address] Jose Conn MD Bee sting, undetermined intent, initial encounter (Primary Dx); Allergic reaction, initial encounter Discharge Disposition: Home 03/29/2025 Travel 03/20/2025 Travel 03/06/2025 8:00 AM EDT - 03/06/2025 9:00 AM EDT Surgery [facility] Surgery [address] [place] [phone] Uche Bourgeois, SYNDESMOTIC SCREW REMOVAL ANKLE [93352 (CPT )] 03/06/2025 7:53 AM EDT Anesthesia Event [facility] Surgery [address] [place] [phone] Thiago Sanabria MD 03/06/2025 5:58 AM EDT - 03/06/2025 9:26 AM EDT Hospital Encounter [facility] - Surgery [address] [place] [phone] Uche Bourgeois DO Post-op pain (Primary Dx) Discharge Disposition: Home 03/06/2025 Travel 02/19/2025 Travel 02/16/2025 Travel 02/12/2025 Results Follow-Up [facility] Emergency [address] [place] [phone] Mervat Worley RN Chlamydia/GC by PCR Liz Swab 02/09/2025 9:45 PM EDT - 02/09/2025 10:32 PM EDT Emergency [facility] - Emergency [address] [place] [phone] Gasper Holloway MD Urinary tract infection without hematuria, site unspecified (Primary Dx) Discharge Disposition: Home 02/09/2025 Travel 01/15/2025 Travel from Last 3 Months Immunizations Immunization Administration Dates Next Due Tdap 12/03/2024 Family History Medical History Relation Name Comments Diabetes Father Heart disease Father COPD Maternal Grandmother Depression Mother Suicide Attempts Paternal Uncle Depression Sister Anesthesia problems Neg Hx Relation Name Status Comments Father Maternal Grandmother Mother Paternal Uncle Sister Social History Tobacco Use Types Packs/Day Years Used Date Smoking Tobacco: Never Smokeless Tobacco: Never Tobacco Cessation:Counseling Given: Not Answered Alcohol Use Standard Drinks/Week Comments Yes 0 [...] Orientation Straight 08/26/2022 8: 59 PM EST Last Filed Vital Signs Vital Sign Reading Time Taken Comments Blood Pressure 126/77 03/29/2025 6:30 PM EDT Pulse 76 03/29/2025 6:30 PM EDT Temperature 35.5 C (95.9 F) 03/06/2025 8:30 AM EDT Respiratory Rate 18 03/29/2025 6:30 PM EDT Oxygen Saturation 98% 03/29/2025 6:30 PM EDT Inhaled Oxygen Concentration - - Weight 127 kg (280 lb) 02/19/2025 2:38 PM EDT Height 162.6 cm (5' 4 ) 03/29/2025 5:51 PM EDT Body Mass Index 47.32 02/19/2025 2:38 PM EDT Plan of Treatment Upcoming Encounters Date Type Department Care Team (Late st Contact Info) Description 04/02/2025 11:00 AM EDT Office Visit [facility] [address] [place] [address] [place] [place] [address] Beni Green, DO [address] [place] [address], [address], [address] [place], [place] [id number] Health Maintenance Due Date Last Done Comments Adult BMI Follow Up Plan 2018 Pap Smear 2021 Influenza Vaccine 03/19/2025 04/09/2021, , 05/03/2017, Additional history exists Depression Screening 10/31/2025 10/31/2024 Chlamydia Screening 02/09/2026 02/09/2025, Adult BMI Screening 02/19/2026 02/19/2025 Tobacco Screening 03/29/2026 03/29/2025 DTaP,Tdap and Td Vaccines (9 - Td or Tdap) 12/03/2034 12/03/2024, 10/19/2018, 11/10/2011, Additional history exists Medical Devices Implanted Type Area Publication Designer Device Identifier Shelf Expiration Date Model / Serial / Lot Plate Bn [id number] 1/3 Tblr 10 Hl Colr Lcp Cmbn Ss .7mm 12mm - [id number] Implanted:Qty: 1 on 12/12/2024 by Uche Bourgeois DO at [facility] Plate Left: Ankle [employer] 241.401 / / Plate Bn [id number] 1/3 Tblr 5 Hl Colr Lcp Cmbn Ss .7mm 12mm - [id number] Implanted:Qty: 1 on 12/12/2024 by Uhce Bourgeois DO at [facility] Plate Left: Ankle [employer] 241.351 / / Screw Bn 16mm 2.7mm 5mm St Sphrcl Hd Sm Hex Sckt [place] Ss 2.5 Rpl Special [id number] - [id number] Implanted:Qty: 1 on 12/12/2024 by Uche Bourgeois DO at [facility] Screw Left: Ankle [employer] 202.816 / / Screw Bn 40mm 3.5mm 6mm St Lp Sm Hex [place] Ss Ns Rpl [id number] Special [id number] - [id number] Implanted:Qty: 1 on 12/12/2024 by Uche Bourgeois DO at [facility] Screw Left: Ankle [employer] 204.840 / / Screw Bn 18mm 2.7mm 5mm St Sphrcl Hd Sm Hex Sckt [place] Ss 2.5 Rpl Special [id number] - [id number] Implanted:Qty: 1 on 12/12/2024 by Uche Bourgeois DO at [facility] Screw Left: Ankle [employer] 202.818 / / Screw Bn 12mm 3.5mm 6mm St Lp Hd Sm Hex Sckt [place] Ss 2.5mm Rpl Special [id number] - [id number] Implanted:Qty: 3 on 12/12/2024 by Uche Bourgeois DO at [facility] Screw Left: Ankle [employer] 204.812 / / Screw Bn 14mm 3.5mm 6mm St Lp Sm Hex [place] Ss Ns Rpl Special [id number] - [id number] Implanted:Qty: 2 on 12/12/2024 by Uche Bourgeois DO at [facility] Screw Left: Ankle [employer] 204.814 / / Screw Bn 16mm 4mm 6mm Sm Hex Sckt Canc Ss 2.5mm Ft Ns Sm - [id number] Implanted:Qty: 2 on 12/12/2024 by Uche Bourgeois DO at [facility] Screw Left: Ankle [employer] 206.016 / / Screw Bn 28mm 3.5mm [address]mm St Lp Sm Hex [place] Ss Ns Rpl [id number] - [id number] Implanted:Qty: 2 on 12/12/2024 by Uche Bourgeois DO at [facility] Screw Left: Ankle [employer] 204.828 / / Screw Bn 34mm 3.5mm [address] Lp Hd Sm Hex Sckt [place] Ss 2.5mm Rpl Special [id number] - [id number] Implanted:Qty: 1 on 12/12/2024 by Uche Bourgeois DO at [facility] Screw Left: Ankle [employer] 204.834 / / Screw Bn 30mm 4mm 6mm Sm Hex Sckt Canc Ss 2.5mm Ft Ns Sm - [id number] Implanted:Qty: 1 on 12/12/2024 by Uche Bourgeois DO at [facility] Screw Left: Ankle [employer] 206.030 / / Screw Bn 35mm 4mm 6mm Sm Hex Sckt Canc Ss 2.5mm Ft Ns Sm - [id number] Implanted:Qty: 1 on 12/12/2024 by Uche Bourgeois DO at [facility] Screw Left: Ankle [employer] 206.035 / / Explanted Type Area Publication Designer Device Identifier Shelf Expiration Date Model / Serial / Lot Screw Bn 50mm 3.5mm 6mm St Lp Sm Hex [place] Ss Ns Rpl [id number] - [id number] Implanted:Qty: 1 on 12/12/2024 by Uche Bourgeois DO at [facility] Explanted:Qty: 1 on 03/06/2025 by Uche Bourgeois DO at [facility] Screw Left: Ankle [employer] 204.981 / / Procedures Procedure Name Priority Date/Time Associated Diagnosis Comments XR ANKLE LT 2 VWS Routine 03/06/2025 8:2 8 AM EDT [place] REMOVAL DEEP IMPLANT 03/06/2025 7:53 AM EDT Sprain of tibiofibular ligament of left ankle subsequent encounter, Displaced trimalleolar fracture of left lower leg subsequent encounter for closed fracture with routine healing Case Notes 0630 Special Needs C-arm4mm & 3.5 mm screws POCT , URINE (NUCG) Routine 03/06/2025 6:10 AM EDT CHLAMYDIA/GC BY PCR LIZ SWAB STAT 02/09/2025 10:25 PM EDT POCT , URINE (NUCG) Routine 02/09/2025 10:16 PM EDT POCT NURSING URINE MACROSCOPIC UA Routine 02/09/2025 10:15 PM EDT ER EXTRA URINE MARBLE STAT 02/09/2025 10:03 PM EDT ER EXTRA URINE CULTURE STAT 02/09/2025 10:03 PM EDT ER EXTRA URINE STAT 02/09/2025 10:03 PM EDT from Last 3 Months Results * X-ray ankle left 2 views (03/06/2025 8:28 AM EDT) Anatomical Region Laterality Modality Lower Extremities, MSK, Ankle Left Ra chuck Fluoroscopy 03/06/2025 1:53 PM EDT Narrative 03/06/2025 1:53 PM EDT XR ANKLE LT 2 VWS Clinical history:hardware removal pain Comparison: 12/12/2024 Impression: Postoperative changes of fixation of the distal tibiofibular fluoroscopic guidance. Reference air kerma was 0.54 mGy. Finalized by Beni Mccoy MD on 03/06/2025 1:53 PM Procedure Note Beni Mccoy MD - 03/06/2025 XR ANKLE LT 2 VWS Clinical history:hardware removal pain Comparison: 12/12/2024 Impression: Postoperative changes of fixation of the distal tibiofibular fluoroscopicguidance. Reference air kerma was 0.54 mGy. Finalized by Beni Mccoy MD on 03/06/2025 1:53 PM Uche Bourgeois DO IMG DIAGNOSTIC IMAGING ORDE RABLES Final Result * POCT , urine (03/06/2025 6:10 AM EDT) Only the most recent of2 resultswithin the time period is included. Pathologist [facility] POC Urine Negative Negative, Indeterminate 03/07/2025 10:14 AM EDT [facility] Urine Collection / Unknown 03/06/2025 6:10 AM EDT 03/07/2025 10:14 AM EDT Uche Bourgeois DO POINT OF CARE TEST ORDERABL ES Final Result [address] [address], * Chlamydia/GC by PCR Liz Swab (02/09/2025 10:25 PM EDT) Pathologist [facility] CHLAMYDIA DNA(PCR) Negative Negative 02/10/2025 12:25 PM EDT [facility] Comment:Chlamydia trachomati s not detected by nucleic acid amplification. This does not exclude the possibility of infection because results are dependent on adequate specimen collection. GONORRHOEAE DNA(PCR) Negative Negative 02/10/2025 12:25 PM EDT [facility] Comment:Neisseria gonorrhoea e not detected by nucleic acid amplification. This does not exclude the possibility of infection because results are dependent on adequate specimen collection. Swab Endocervical structure / Unknown 02/09/2025 10:25 PM EDT 02/09/2025 11:11 PM EDT us Gasper Holloway MD MICROBIOLOGY - GENERAL ORDERABLE S Final Result [facility] [address] [place] [address], [place] [phone] * (ABNORMAL) POCT Nursing Urine Macroscopic UA (02/09/2025 10:15 PM EDT) POC Urine Specific [place] >=1.030(A) 1.010, 1.015, 1.020, 1.025 02/09/2025 10:07 PM EDT [facility] Urine Leukocyte Esterase Small(A) Negative 02/09/2025 10:07 PM EDT [facility] POC Urine Nitrite Negative Negative 02/09/2025 10:07 PM EDT [facility] POC Urine pH 5.5 5.0, 6.0, 6.5, 7.0, 7.5, 8.0, 8.5, 5.5 02/09/2025 10:07 PM EDT [facility] POC Urine Protein 100 mg/dL(A) Negative 02/09/2025 10:07 PM EDT [facility]OC Urine Glucose Negative Negative 02/09/2025 10:07 PM EDT [facility] Urine Ketones Trace(A) Negative 02/09/2025 10:07 PM EDT [facility] Urine Urobilinogen 0.2 E.U./dL 02/09/2025 10:07 PM EDT [facility] Urine Bilirubin Negative Negative 02/09/2025 10:07 PM EDT [facility] Urine Blood/HGB Large(A) Negative 02/09/2025 10:07 PM EDT [facility] Urine 02/09/2025 10:1 5 PM EDT 02/09/2025 10:07 PM EDT us Gasper Holloway MD POINT OF CARE TEST ORDERABLES Fi nal Result Performing Organization Address City/[facility]/ZIP Co de Phone Number [address] [place] [address], [place] * Extra Urine [place] (02/09/2025 10:03 PM EDT) Extra Tube Auto Resulted 02/10/2025 12:01 AM EDT [facility] Urine Urine specimen collection, clean catch / Unknown 02/09/2025 10:03 PM EDT 02/09/2025 11:15 PM EDT us Gasper Holloway MD URINE ORDERABLES Final Result Performing Organization Address [facility] Co de Phone Number [address] [place] [address], [place] * Extra Urine Culture (02/09/2025 10:03 PM EDT) Extra Tube Auto Resulted 02/10/2025 12:01 AM EDT [facility] Urine Urine specimen collection, clean catch / Unknown 02/09/2025 10:03 PM EDT 02/09/2025 11:15 PM EDT us Gasper Holloway MD URINE ORDERABLES Final Result Performing Organization Address City/[facility] Co de Phone Number [address] [place] [address], [place] * Extra Urine (02/09/2025 10:03 PM EDT) Extra Tube Auto Resulted 02/10/2025 12:01 AM EDT [facility] Urine Urine / Unknown 02/09/2025 1 0:03 PM EDT 02/09/2025 11:15 PM EDT us Gasper Holloway MD URINE ORDERABLES Final Result [facility] [address] [place] [address], [place] from Last 3 Months Insurance [facility] MEDICAID Advance Directives * Full Code (Latest Code Status on File) Date Activated Date Inactivated Comments 01/18/2019 7:12 AM 01/20/2019 9:26 PM Care Teams Music Engineer Relationship Specialty Start Date End Date Pietro So MD [address] [facility] [place] [address] PCP - General Internal Medicine 03/04/24
--- OUTSIDE RECORDS SUMMARY | 2025-03-30 19:55 | XMS_ITS | Clinical Summary ---
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 Role Phone Unavailable Primary Care Provider Unavailabl e Allergies Active Allergy Reactions Criticality Noted Date Comments Bee Venom Shortness Of Breath High 11/29/2018 Cephalexin Rash Low 07/25/2021 Penicillins 08/03/2017 Medications acetaminophen (TYLENOL) 500 MG tablet Take 1,000 mg by mouth every 6 hours as needed 10/01/2021 Active Vit-Fe Fumarate-FA ( 19) 29-1 MG CHEW Take by mouth Active Social History Tobacco Use Types Packs/Day Years Used Date Smoking Tobacco: Never Smokeless Tobacco: Never Tobacco Cessation:Counseling Given: Not Answered Alcohol Use Standard Drinks/Week Comments Never 0 (1 standard drink = 0.6 oz pur e alcohol) Comments No Sex and Gender Information Value Date Recorded Sex Assigned at Not on file Legal Sex Female 9:58 AM EST Gender Identity Not on file Sexual Orientation Not on file Last Filed Vital Signs Vital Sign Reading Time Taken Comments Blood Pressure 107/61 08/17/2022 8:30 AM EST Pulse 84 08/17/2022 8:30 AM EST Temperature 36.6 C (97.9 F) 08/17/2022 8:30 AM EST Respiratory Rate 18 08/17/2022 8:30 AM EST Oxygen Saturation - - Inhaled Oxygen Concentration - - Weight 119.4 kg (263 lb 3.7 oz) 08/17/2022 8:30 AM EST Height 163.8 cm (5' 4.5 ) 08/17/2022 8:30 AM EST Body Mass Index 44.49 08/17/2022 8:30 AM EST Plan of Treatment Health Maintenance Due Date Last Done Comments Depression Screen 2012 HIV screen 2015 Chlamydia/GC screen 2016 Hepatitis C screen 2018 Pap smear 2021 Flu vaccine (#1) 02/16/2025 04/09/2021, , 05/03/2017, Additional history exists COVID-19 Vaccine ( season) 2025 DTaP/Tdap/Td vaccine (8 - Td or Tdap) 10/19/2028 10/19/2018, 11/10/2011, 09/25/2005, Additional history exists Hepatitis B vaccine Completed 01/17/2001, 2000, 2000 Hib vaccine Completed 09/19/2001, 08/2000, 2000, Additional history exists Pneumococcal 0-49 years Vaccine Aged Out 09/19/2001, 07/20/2001 No longer eligibl e based on patient's age to complete this topic Polio vaccine Completed 09/25/2005, 08/2000, 2000, Additional history exists Varicella vaccine Completed 12/07/2006, 07/20/2001 Hepatitis A vaccine Completed 06/04/2009, 8 HPV vaccine Completed 11/23/2012, 06/19, 01/19/2012 Meningococcal (ACWY) vaccine Completed 09/15/2017, 01/19/2012 Meningococcal B vaccine Aged Out No l onger eligible based on patient's age to complete this topic Insurance PLAN
--- OUTSIDE RECORDS SUMMARY | 2025-03-30 19:57 | XMS_ITS | CCD ---
Author Organization [facility] Care Team Providers Care Enrollment Specialist Name Role Phone CLEEMPUT, JODI GALLARDO UNDERGROUND SUPERVISOR Attending Unavailable Cleemput, Jodi Enid Primary Care Unavailable Cleemput, Jodi Enid Primary Care Unavailable Paulette Harley Attending Unava ilable CLEEMPUT, JODI GALLARDO UNDERGROUND SUPERVISOR Consulting Unavailable Unavailable Primary Care Provider ESTEFANY [...] DR JOLLY Admitting Unavailable CARL ., DR JOLYL Attending Unavailable ZIEBER, DR DALTON Valerio Consulting [...] KARASIK ., DR LYN Attending Unavailabl e KARASIK ., DR LYN Consulting Unavailabl e WEST, DR MACHELLE Scott Consulting Unavailable CARLEY ., JODI Consulting Unavailable MISC, DR CASTAÑEDA Primary Care Unavailable CARL ., DR JOLLY Consulting Unavailable CARL ., DR JOLLY Admitting Unavailable CARL ., DR JOLLY Attending Unavailable CARLEY, JODI Attending Unavailable CARLEY, JODI Attending Unavailable Daniel Pietro DEVINE Primary Care Provider [phone] Daniel Pietro DEVINE Primary Care Provider DANIEL, MUHAMID M Attending Unavailable DANIEL, MUHAMID M Referring Unavailable DANIEL, MUHAMID M Primary Care Unavailable DANIEL, MUHAMID M Attending Unavailable DANIEL, MUHAMID M Referring Unavailable DANIEL, MUHAMID M Primary Care Unavailable DANIEL, MUHAMID M Attending Unavailable DANIEL, MUHAMID M Referring Unavailable DANIEL, MUHAMID M Primary Care Unavailable PHYLLIS MYLES Admitting Unavailable PHYLLIS MYLES Attending Unavailable PHYLLIS MYLES Referring Unavailable DANIEL, MUHAMID M Primary Care Unavailable PHYLLIS MYLES Admitting Unavailable PHYLLIS MYLES Attending Unavailable PHYLLIS MYLES Referring Unavailable DANIEL, MUHAMID M Primary Care Unavailable DANIEL, MUHAMID M Primary Care Unavailable EDITH SILVA Attending Unavailable DANIEL, MUHAMID M Referring Unavailable DANIEL, MUHAMID M Primary Care Unavailable DANIEL, MUHAMID M Primary Care Unavailable JOSE ROBERTO EASON Attending Unavailable MARLIN, AGUILAR M Referring Unavailable DANIEL, MUHAMID M Primary Care Unavailable MARLIN, AGUILAR M Referring Unavailable DANIEL, MUHAMID M Primary Care Unavailable MARLIN, AGUILAR M Referring Unavailable DANIEL, MUHAMID M Primary Care Unavailable DANIEL, MUHAMID M Primary Care Unavailable EDIE GAO Attending Unavailable MARLIN, AGUILAR M Referring Unavailable DANIEL, MUHAMID M Primary Care Unavailable MARLIN, AGUILAR M Referring Unavailable DANIEL, MUHAMID M Primary Care Unavailable Allergies Allergy Classification Reported Allergen(s) Allergy Type Date of Onset Reaction(s) Facility (1 source) Penicillin; Translations: [penicillin] Drug Allergy [facility] Repository (7 sources) bee venom Propensity to adverse reactions to drug 9 Shortness Of Breath [facility] By[employer] Mobile (10 sources) Cephalexin; Translations: [CEPHALEXIN] Drug Allergy 2 Rash [facility] Word[employer] Phone: (6 sources) Penicillins; Translations: [PENICILLINS] Propensity to adverse reactions to drug 8 [facility] (1 source) bee venom Drug allergy (disorder) 5 [facility] Repository (1 source) Penicillins Drug allergy (disorder) 5 [facility] Repository (4 sources) Penicillins Propensity to adverse reactions to drug 8 [employer] (3 sources) BEE VENOM PROTEIN (HONEY BEE); Translations: [BEE VENOM PROTEIN (HONEY BEE)] Propensity to adverse reactions to drug (disorder[facility] Medications Current Medications Medication Drug Class(es) [...] Discontinued Start: 10-01-2021 take 2 tablets by [facility] every six hours as needed acetaminophen (TYLENOL) 500 MG tablet Take 1,000 mg by mouth every 6 hours as needed 0 10/01/2021 Active acetaminophen 325 mg / oxyCODONE hydrochloride 5 mg oral tablet (2 sources) Opioid Agonist take 1 tablet by mouth every four hours as needed for pain oxyCODONE-acetaminophen (PERCOCET) 5-325 mg per tablet Take 1 tablet by mouth every 4 (four) hours as needed for pain. Active benzocaine 6 mg / menthol 10 mg oral lozenge (1 source) Standardized Chemical Allergen Start : 12-31 End: 07-25 take 1 tablet by mouth every two hours as needed benzocaine-menthoL (CHLORASEPTIC SORE THROAT) 6-10 mg lozenge Dissolve 1 lozenge in the mouth every 2 (two) hours as needed for sore throat. 100 tablet 12/31/2021 07/25/2024 Discontinued dicyclomine hydrochloride 20 mg oral tablet (1 source) Anticholinergic Start : 03-02 End: 07-25 take 1 tablet by mouth in the morning, then take 1 tablet by mouth at bedtime dicyclomine (BENTYL) 20 mg tablet Take 1 tablet (20 mg total) by mouth in the morning and 1 tablet (20 mg total) before bedtime. 20 tablet 03/02/2022 07/25/2024 Discontinued fluconazole 100 mg oral tablet (1 source) Azole Antifungal Start : 07-25 End: 07-28 take 1 tablet by mouth in the morning fluconazole (DIFLUCAN) 100 mg tablet Indications: Candidal vaginitis Take 1 tablet (100 mg total) by mouth in the morning for 3 doses. 3 tablet 07/25/2024 07/28/2024 Active hydrOXYzine hydrochloride 25 mg oral tablet (7 sources) Antihistamine Start : 07-25 End: 08-21 take 1 tablet by mouth three times daily as needed for anxiety hydrOXYzine (ATARAX) 25 mg tablet Indications: Bipolar affective disorder, currently depressed, moderate (CMS-HCC) TAKE 1 TABLET BY MOUTH 3 TIMES A DAY NEEDED FOR ANXIETY. 90 tablet 08/21/2024 Active ibuprofen 800 mg oral tablet (1 source) Nonsteroidal Anti-inflammatory Drug Start : 03-04 End: 07-25 take 1 tablet by mouth three times daily ibuprofen (MOTRIN) 800 mg tablet Take 1 tablet (800 mg total) by mouth 3 (three) times a day. 21 tablet 03/04/2024 07/25/2024 Discontinued mirtazapine 7.5 mg oral tablet (6 sources) Start : 12-27 take 1 tablet by mouth once daily mirtazapine (REMERON) 7.5 mg tablet Indications: Bipolar affective disorder, currently depressed, moderate (CMS-HCC) , Primary insomnia TAKE 1 TABLET BY MOUTH EVERY DAY NIGHTLY 30 tablet 12/27/2024 Active Start: 10-31-2024 End: 12-27-2024 take 1 tablet by mouth once daily mirtazapine (REMERON) 7.5 mg tablet Indications: Bipolar affective disorder, currently depressed, moderate (CMS-HCC) , Primary insomnia TAKE 1 TABLET BY MOUTH EVERY DAY NIGHTLY 30 tablet 11/28/2024 12/27/2024 Discontinued vit,indira 74/iron/folic ( VITAMIN 1+1 ORAL) (1 source) End: 07-25-2024 take 1 tablet by mouth in the morning vit,indira 74/iron/folic ( VITAMIN 1+1 ORAL) Take 1 tablet by mouth in the morning. 07/25/2024 Discontinued Vit-Fe Fumarate-FA ( 19) 29-1 MG CHEW (1 source) Vit-Fe Fumarate-FA ( 19) 29-1 MG CHEW Take by mouth 0 Active pseudoephedrine hydrochloride 30 mg oral tablet (1 source) alpha-Adrenergic Agonist Start: 12-31-2021 End: 07-25-2024 take 1 tablet by mouth every six hours as needed for congestion pseudoephedrine (SUDAFED) 30 mg tablet Take 1 tablet (30 mg total) by mouth every 6 (six) hours as needed for congestion. 15 tablet 12/31/2021 07/25/2024 Discontinued 24 hr venlafaxine 37.5 mg extended release oral capsule (4 sources) Serotonin and Norepinephrine Reuptake Inhibitor Start: 04-15-2025 take 1 capsule by mouth every twenty-four hours in the morning venlafaxine XR (EFFEXOR XR) 37.5 mg 24 hr capsule Indications: Bipolar affective disorder, currently depressed, moderate (CMS-HCC) Take 1 capsule (37.5 mg total) by mouth in the morning. 30 capsule 2 10/31/2024 Active Completed/Discontinued Medications Medication Drug Class(es) Dates Sig (Normalized) Sig (Original) lamoTRIgine 25 mg oral tablet (4 sources) Mood Stabilizer, Anti-epileptic Agent Start: 08-21-2024 End: 10-31-2024 take 1 tablet by mouth at bedtime lamoTRIgine (LaMICtal) 25 mg tablet Indications: Bipolar affective disorder, currently depressed, moderate (CMS-HCC) TAKE 1 TABLET (25 MG TOTAL) BY MOUTH IN THE MORNING AND BEFORE BEDTIME 60 tablet 08/21/2024 10/31/2024 Discontinued Start: 07-25-2024 End: 08-21-2024 take 1 tablet by mouth in the morning, then take 1 tablet by mouth at bedtime lamoTRIgine (LaMICtal) 25 mg tablet Indications: Bipolar affective disorder, currently depressed, moderate (CMS-HCC) Take 1 tablet (25 mg total) by mouth in the morning and 1 tablet (25 mg total) before bedtime. 60 tablet 07/25/2024 08/21/2024 Discontinued Problems Active Problems Problem Classification Problem Date Documented Date Episodic/Chronic Administrative/social admission (1 source) Encounter for issue of repeat prescription; Translations: [ENC FOR ISSUE REPEAT PRESCRIPTION] Onset: 10-06-2022 Episodic Allergic reactions (2 sources) Allergy status to penicillin; Translations: [Bee allergy status] Onset: 11-19-2022 Episodic Diabetes mellitus without complication (4 sources) Other abnormal glucose; Translations: [OTHER ABNORMAL GLUCOSE] Onset: 09-04-2022 Episodic Menstrual disorders (4 sources) Irregular menstruation, unspecified; Translations: [IRREGULAR MENSTRUATION UNSPECIFIED] Onset: 03-31-2022 Chronic Miscellaneous mental health disorders (4 sources) Primary insomnia; Translations: [Primary insomnia] Onset: 10-31-2024 10-31-2024 Chronic Mood disorders (19 sources) Bipolar affective disorder, currently depressed, moderate; Translations: [Bipolar disorder, current episode depressed, moderate] Onset: 10-25-2017 07-25-2024 Chronic Mycoses (1 source) Candidiasis of vagina; Translations: [Candidal vaginitis] 07-25-2024 Episodic Other aftercare (1 source) Other fpc (current) drug therapy; Translations: [OTH HOGSHEAD WEIGHER CURRENT DRUG THERAPY] Onset: 11-19-2022 Episodic Other [...] Onset: 10-06-2022 Episodic Other female genital disorders (1 source) Vaginal discharge; Translations: [Other specified noninflammatory disorders of vagina] 07-25-2024 Episodic Other nervous system disorders (1 source) Other acute postprocedural pain; Translations: [Other acute postprocedural pain] Onset: 03-06-2025 Episodic Other upper respiratory infections (1 source) [...] WEEKS GESTATION OF ] Onset: 10-06-2022 Episodic Spondylosis; intervertebral disc disorders; other back problems (1 source) Chronic neck pain Onset: 02-09-2025 Episodic Unclassified (2 sources) COUGH, UNSPECIFIED; Translations: [COUGH, UNSPECIFIED] Onset: 10-06-2022 Unclassified (1 source) Er Follow-up Onset: 12-14-2024 Unclassified (1 source) Manic Behavior Onset: 10-31-2024 Unclassified (1 source) Acute candidiasis of vulva and vagina; Translations: [Acute candidiasis of vulva and vagina] Onset: 07-25-2024 Unclassified (1 source) Establish Care Onset: 07-25-2024 Unclassified (1 source) Displaced trimalleolar fracture of left lower leg initial encounter for closed fracture Onset: 12-12-2024 Unclassified (1 source) Painful Urination Onset: 02-09-2025 Unclassified (1 source) Ankle Injury Onset: 12-03-2024 Unclassified (1 source) Hand Injury Onset: 07-28-2024 Unclassified (1 source) FALL - PAIN RT HAND Onset: 07-28-2024 Urinary tract infections (1 source) Urinary tract infection, site not specified; Translations: [Urinary tract infection, site not specified] Onset: 02-09-2025 Episodic Past or Other Problems Problem Classification Problem Date Documented Da te Episodic/Chronic Abdominal pain (3 sources) Suprapubic pain; Translations: [Pelvic and perineal pain] Onset: 10-31-2024 10-31-2024 Episodic Chronic obstructive pulmonary disease and bronchiectasis (1 source) Bronchitis, not specified as acute or chronic; Translations: [BRONCHITIS NOT SPEC ACUTE/CHRON] Onset: 04-06-2022 Episodic Fracture of lower limb (4 sources) Closed trimalleolar fracture of left ankle; Translations: [Displaced trimalleolar fracture of left lower leg, sequela] Onset: 12-03-2024 12-14-2024 Episodic Gastrointestinal hemorrhage (6 sources) Rectal hemorrhage; Translations: [Hemorrhage of anus and rectum] Onset: 10-27-2018 Resolved: 11-29-2018 11-29-2018 Episodic Genitourinary symptoms and ill-defined conditions (2 sources) Dysuria; Translations: [Dysuria] Onset: 07-25-2024 07-25-2024 Episodic Immunizations and screening for infectious disease (6 sources) Encounter for screening for human papillomavirus (HPV); Translations: [Encounter for screening for infections with a predominantly sexual mode of transmission] Onset: 05-06-2022 Episodic Mood disorders (6 sources) Mood disorders Onset: 07-25-2024 Resolved: 10-31-2024 07-25-2024 Nonspecific chest pain (4 sources) Chest pain, unspecified; Translations: [CHEST PAIN UNSPECIFIED] Onset: 04-04-2022 Episodic Other complications of (1 source) Other specified related conditions, first trimester; Translations: [OTH SPEC PREG RELATED COND 1ST TRI] Onset: 04-06-2022 Episodic Other complications of (6 sources) Teenage ; Translations: [Supervision of other high risk pregnancies, third trimester] Onset: 10-27-2018 10-27-2018 Episodic Other female genital disorders (6 sources) Other specified noninflammatory disorders of vagina; Translations: [OTH SPEC NONINFLAMMATORY D/O VAGINA] Onset: 07-28-2022 Episodic Other infections; including parasitic (6 sources) Infestation by bed bug; Translations: [Other specified [...] 8 WEEKS GESTATION ] Onset: 04-06-2022 Episodic Superficial injury; contusion (1 source) Contusion of right hand, initial encounter; Translations: [Contusion of right hand, initial encounter] Onset: 07-28-2024 Episodic Unclassified (1 source) COUGH, UNSPECIFIED; Translations: [COUGH, UNSPECIFIED] Onset: 08-29-2022 Results Test Name Value Interpretation Reference Range Facil ity POCT , URINE (NUCG) on 03-06-2025 Beta HCG ( test) Ql (U) Negative Normal Negative, Indeterminate [facility] Comment on above: Performed By: #### N UCG #### [facility] ([facility]) [address] [place] [address] VIR CHLAMYDIA/GC BY PCR DANIELLE SW ABon 02-09-2025 CHLAMYDIA/GC BY PCR DANIELLE SWAB CHLAMYDIA DNA(PCR) Negative Chlamydia trachomatis not detected by nucleic acid amplification. This does not exclude the possibility of infection because results are dependent on adequate specimen collection. GONORRHOEAE DNA(PCR) Negative Neisseria gonorrhoeae not detected by nucleic acid amplification. This does not exclude the possibility of infection because results are dependent on adequate specimen collection. Normal [facility] Comment on above: Performed By: #### C #### [facility] (TT) [address] [place] [address] VIR POCT NURSING URINE MACROSCOP IC UAon 02-09-2025 BILIRUBIN NICK Negative Normal Negative [facility] Comment on above: Performed By: #### N UM #### [facility] ([address] [address] VIR BLOOD/HGB NICK Large Abnormal Negative [facility] Comment on above: Performed By: #### N UM #### [facility] ([facility]) [address] [place], [place] [address], [place] [address] VIR GLUCOSE NICK Negative Normal Negative [facility] Comment on above: Performed By: #### N UM #### [facility] ([address] [place] [address] VIR KETONES NICK Trace Abnormal Negative [facility] Comment on above: Performed By: #### N UM #### [facility] ([address] [place] [address] VIR LEUKOCYTE ESTERASE NICK Small Abnormal Negative [facility] Comment on above: Performed By: #### N UM #### [facility] ([address] [place] [address] VIR NITRITE NICK Negative Normal Negative [facility] Comment on above: Performed By: #### N UM #### [facility] ([address] [place] [address] VIR PH NICK 5.5 Normal 5.0, 6.0, 6.5, 7.0, 7.5, 8.0, 8.5, 5.5 [facility] Comment on above: Performed By: #### N UM #### [facility] ([address] [place] [address] VIR PROTEIN NICK 100 mg/dL Abnormal Negative [facility] Comment on above: Performed By: #### N UM #### [facility] ([address] [place] [address] VIR SPECIFIC GRAVITY NICK >=1.030 Abnormal 1.010, 1.015, 1.020, 1.025 [facility] Comment on above: Performed By: #### N UM #### [facility] ([address] [place] [address] VIR UROBILINOGEN NICK 0.2 E.U./dL Normal [facility] Comment on above: Performed By: #### N UM #### [facility] ([facility]) [address] [place] [address] VIR POCT , URINE (NUCG) on 02-09-2025 Beta HCG ( test) Ql (U) Negative Normal Negative, Indeterminate [facility] Comment on above: Performed By: #### N UCG #### [facility] ([facility]) [address] [place] [address] VIR POCT , URINE (NUCG) on 12-12-2024 Beta HCG ( test) Ql (U) Negative Normal Negative [facility] Comment on above: Performed By: #### N UCG #### [facility] ([facility]) [address] [place] [address] VIR XR ANKLE LT MIN 3 VWSon 11-16 XR ANKLE LT MIN 3 VWS XR ANKLE LT MIN 3 VWS History: Pain. Fracture dislocation Study: Left Ankle Three view study. Comparison: Earlier today Impression: * The dislocation has been. Diffuse. There is now anatomic alignment of the tibiotalar articulation. Fractures of the distal fibula and tibia are noted. Patient is imaged in a fiberglass cast.. Finalized by Jodi Rodriguez MD on 12/03/2024 6:23 PM Normal [facility] XR ANKLE LT MIN 3 VWS XR ANKLE LT MIN 3 VWS XR ANKLE LT MIN 3 VWS HISTORY: Ankle pain.. COMPARISON: 03/09/2021 IMPRESSION: Ankle fracture dislocation, posterior dislocation of the talus with respect to tibia, oblique Tabor C distal fibular, and displaced medial malleolar fracture Finalized by Aleksey June MD on 12/03/2024 5:27 PM Normal [facility] URINALYSISon 10-31-2024 Bilirubin Ql (U) Negative Normal NEG [facility] Comment on above: Performed By: #### U A #### [facility] ([id number]) [address] [place] [address] BLOOD/HGB Negative Normal NEG [facility] Comment on above: Performed By: #### U A #### [facility] ([id number]) [address] [place] [address] Color (U) YELLOW Normal YELLOW [facility] Comment on above: Performed By: #### U A #### [facility] ([id number]) [address] [place] [address] Glucose Ql (U) Negative Normal NEG [facility] Comment on above: Performed By: #### U A #### [facility] ([id number]) [address] [place] [address] Ketones Ql (U) Negative Normal NEG [facility] Comment on above: Performed By: #### U A #### [facility] ([id number]) [address] [place] [address] Leukocyte esterase Test strip Ql (U) Negative Normal NEG [facility] Comment on above: Performed By: #### U A #### [facility] ([id number]) [address] [place] [address] Nitrite Ql (U) Negative Normal NEG [facility] Comment on above: Performed By: #### U A #### [facility] ([id number]) [address] [place] [address] pH (U) 6.5 [pH] Normal 5.0-8.5 [facility] Comment on above: Performed By: #### U A #### [facility] ([id number]) [address] [place] [address] Protein Ql (U) Negative Normal NEG [facility] Comment on above: Performed By: #### U A #### [facility] ([id number]) [address] [place] [address] Specific gravity (U) [Rel density] 1.023 Normal 1.003-1.035 [facility] Comment on above: Performed By: #### U A #### [facility] ([id number]) [address] [place] [address] TURBIDITY CLEAR Normal CLEAR [facility] Comment on above: Performed By: #### U A #### [facility] ([id number]) [address] [place] [address] Urobilinogen Qn (U) 2 {Bernard'U}/dL High <1.1 [facility] Comment on above: Performed By: #### U A #### [facility] ([id number]) [address] [place] [address] URINE CULTUREon 10-31-2024 Bacteria identified Cx Nom (U) CULTURE RESULTS 10-50,000 ORGANISMS/mL NORMAL UROGENITAL ELDER Normal [facility] Comment on above: Performed By: #### 6 30-4 #### [facility] ([id number]) [address] [place] [address] XR HAND RT MIN 3 VWSon 07-28 XR HAND RT MIN 3 VWS XR HAND RT MIN 3 VWS EXAM: XR HAND RT MIN 3 VWS CLINICAL INFORMATION: fall, injury, swelling. COMPARISON: None. FINDINGS: There is no evidence for an acute displaced fracture or malalignment of the hand. The joint spaces are relatively well-preserved. IMPRESSION: Normal 3 views of the hand. Finalized by Joe Olvera MD on 07/28/2024 5:35 PM Normal [facility] ANTIBODY SCR REFLEX TO ID/TI Leyda 11-12-2022 Antibody ID #1 Anti-E [facility] Comment on above: Performed By: #### A BSCRLC ####[facility] [id number] [address]DrDo Sanchez Antibody ID #2 [facility] Comment on above: Performed By: #### A BSCRLC ####[facility] [id number] [address]Dr. Thomas Sanchez Carlos Titer #1 2 Normal [facility] Comment on above: Result Comment: If a numerical titer result has been reported, please note that this result is the reciprocal value of titer results formerly reported as 1:2,1:4, 1:8, etc. These results are now reported as 2, 4, 8, etc. The [employer] has recommended this change in titer reporting formats to simply reflect the reciprocal value of the titer. Performed By: #### A BSCRLC ####[facility] [id number] [address]Dr. Thomas Sanchez Carlos Titer #2 Normal [facility] Comment on above: Performed By: #### A BSCRLC ####[facility] [id number] [address]DrDo Sanchez CBC AUTO DIFFon 11-11-2022 BASO # 0.0 103/ul Normal 0.0-0.1 [facility] Comment on above: Performed By: #### A 1C #### [facility] [address] [address] [address] Thomas Sanchez Basophils/100 WBC (Bld) 0.2 % Normal 0.2-2.0 [facility] Comment on above: Performed By: #### A 1C #### [facility] [address] [address] [address] Thomas Sanchez EO # 0.1 103/ul Normal 0.0-0.7 [facility] Comment on above: Performed By: #### A 1C #### [facility] [address] [address] [address] Thomas Sanchez Eosinophils/100 WBC (Bld) 0.8 % Critically low 0.9-7.0 [facility] Comment on above: Performed By: #### A 1C #### [facility] [address] [place] [address] Dr. Thomas Sanchez Erythrocyte distribution width (RBC) [Ratio] 13.2 % Normal 11.0-15.0 [facility] Comment on above: Performed By: #### A 1C #### [facility] [address] [place] [address] Dr. Thomas Sanchez Hematocrit (Bld) [Volume fraction] 30.6 % Critically low 36.0-48.0 [facility] Comment on above: Performed By: #### A 1C #### [facility] [address] [place] [address] Dr. Thomas Sanchez Hemoglobin (Bld) [Mass/Vol] 9.9 g/dL Critically low 12.0-16.0 [facility] Comment on above: Performed By: #### A 1C #### [facility] [address] [place] [address] Dr. Thomas Sanchez IG # 0.05 10e3/ul Critically high 0.00-0.03 St[address] [facility] Comment on above: Performed By: #### A 1C #### [facility] [address] [place] [address] Dr. Thomas Sanchez IG % 0.4 % Normal 0.0-0.5 [facility] Comment on above: Performed By: #### A 1C #### [facility] [address] [place] [address] Dr. Thomas Sanchez LYMPH # 2.9 103/ul Normal 1.2-3.8 [facility] Comment on above: Performed By: #### A 1C #### [facility] [address] [place] [address] Dr. Thomas Sanchez Lymphocytes/100 WBC (Bld) 26.4 % Normal 20.5-60.0 [facility] Comment on above: Performed By: #### A 1C #### [facility] [address] [place] [address] Dr. Thomas Sanchez MANUAL DIFF REQ NO Normal [facility] Comment on above: Performed By: #### A 1C #### [facility] [address] [place] [address] Dr. hTomas Sanchez MCH (RBC) [Entitic mass] 27.9 pg Normal 26.7-34.0 [facility] Comment on above: Performed By: #### A 1C #### [facility] [address] [address] [address] Thomas Sanchez MCHC (RBC) [Mass/Vol] 32.4 g/dL Normal 29.9-35.2 [facility] Comment on above: Performed By: #### A 1C #### [facility] [address] [address] [address] Thomas Sanchez MCV (RBC) [Entitic vol] 86.2 fL Normal 81.0-99.0 [facility] Comment on above: Performed By: #### A 1C #### [facility] [address] [address] [address] Thomas Sanchez MONO # 0.8 103/ul Normal 0.3-0.8 [facility] Comment on above: Performed By: #### A 1C #### [facility] [address] [place] [address] Dr. Thomas Sanchez Monocytes/100 WBC (Bld) 6.8 % Normal 1.7-12.0 [facility] Comment on above: Performed By: #### A 1C #### [facility] [address] [address] [address] Thomas Sanchez NEUT # 7.3 103/ul Critically high 1.4-6.5 [facility] Comment on above: Performed By: #### A 1C #### [facility] [address] [place] [address] Dr. Thomas Sanchez Neutrophils/100 WBC (Bld) 65.4 % Normal 43.0-75.0 [facility] Comment on above: Performed By: #### A 1C #### [facility] [address] [address] [address] Thomas Sanchez Platelet mean volume (Bld) [Entitic vol] 10.2 fL Normal 9.5-13.5 [facility] Comment on above: Performed By: #### A 1C #### [facility] [address] [place] [address] Dr. Thomas Sanchez PLT 171 103/ul Normal 150-450 [facility] Comment on above: Performed By: #### A 1C #### [facility] [address] [address] [address] Thomas Sanchez RBC 3.55 106/ul Critically low 4.20-5.40 [facility] Comment on above: Performed By: #### A 1C #### [facility] [address] [place] [address] Dr. Thomas Sanchez WBC 11.1 103/ul Critically high 4.0-11.0 [facility] Comment on above: Performed By: #### A 1C #### [facility] [address] [place] [address] Dr. Thomas Sanchez CBC AUTO DIFFon 11-10-2022 BASO # 0.0 103/ul Normal 0.0-0.1 [facility] Comment on above: Performed By: #### A 1C #### [facility] [address] [place] [address] Dr. Thomas Sanchez Basophils/100 WBC (Bld) 0.2 % Normal 0.2-2.0 [facility] Comment on above: Performed By: #### A 1C #### [facility] [address] [place] [address] Dr. Thomas Sanchez EO # 0.1 103/ul Normal 0.0-0.7 [facility] Comment on above: Performed By: #### A 1C #### [facility] [address] [place] [address] Dr. Thomas Sanchez Eosinophils/100 WBC (Bld) 1.2 % Normal 0.9-7.0 [facility] Comment on above: Performed By: #### A 1C #### [facility] [address] [place] [address] Dr. Thomas Sanchez Erythrocyte distribution width (RBC) [Ratio] 13.2 % Normal 11.0-15.0 [facility] Comment on above: Performed By: #### A 1C #### [facility] [address] [place] [address] Dr. Thomas Sanchez Hematocrit (Bld) [Volume fraction] 35.4 % Critically low 36.0-48.0 [facility] Comment on above: Performed By: #### A 1C #### [facility] [address] [address] [address] Thomas Sanchez Hemoglobin (Bld) [Mass/Vol] 11.7 g/dL Critically low 12.0-16.0 [facility] Comment on above: Performed By: #### A 1C #### [facility] [address] [address] [address] Thomas Sanchez IG # 0.04 10e3/ul Critically high 0.00-0.03 [facility] Comment on above: Performed By: #### A 1C #### [facility] [address] [address] [address] Thomas Sanchez IG % 0.4 % Normal 0.0-0.5 [facility] Comment on above: Performed By: #### A 1C #### [facility] [address] [place] [address] Dr. Thomas Sanchez LYMPH # 2.9 103/ul Normal 1.2-3.8 [facility] Comment on above: Performed By: #### A 1C #### [facility] [address] [place] [address] Dr. Thomas Sanchez Lymphocytes/100 WBC (Bld) 32.7 % Normal 20.5-60.0 [facility] Comment on above: Performed By: #### A 1C #### [facility] [address] [place] [address] Dr. Thomas Sanchez MANUAL DIFF REQ NO Normal [facility] Comment on above: Performed By: #### A 1C #### [facility] [address] [place] [address] Dr. Thomas Sanchez MCH (RBC) [Entitic mass] 28.0 pg Normal 26.7-34.0 [facility] Comment on above: Performed By: #### A 1C #### [facility] [address] [place] [address] Dr. Thomas Sanchez MCHC (RBC) [Mass/Vol] 33.1 g/dL Normal 29.9-35.2 [facility] Comment on above: Performed By: #### A 1C #### [facility] [address] [place] [address] Dr. Thomas Sanchez MCV (RBC) [Entitic vol] 84.7 fL Normal 81.0-99.0 [facility] Comment on above: Performed By: #### A 1C #### [facility] [address] [place] [address] Dr. Thomas Sanchez MONO # 0.7 103/ul Normal 0.3-0.8 [facility] Comment on above: Performed By: #### A 1C #### [facility] [address] [place] [address] Dr. Thomas Sanchez Monocytes/100 WBC (Bld) 8.3 % Normal 1.7-12.0 [facility] Comment on above: Performed By: #### A 1C #### [facility] [address] [place] [address] Dr. Thomas Sanchez NEUT # 5.1 103/ul Normal 1.4-6.5 [facility] Comment on above: Performed By: #### A 1C #### [facility] [address] [place] [address] Dr. Thomas Sanchez Neutrophils/100 WBC (Bld) 57.2 % Normal 43.0-75.0 [facility] Comment on above: Performed By: #### A 1C #### [facility] [address] [place] [address] Dr. Thomas Sanchez Platelet mean volume (Bld) [Entitic vol] 10.5 fL Normal 9.5-13.5 [facility] Comment on above: Performed By: #### A 1C #### [facility] [address] [place] [address] Dr. Thomas Sanchez PLT 211 103/ul Normal 150-450 [facility] Comment on above: Performed By: #### A 1C #### [facility] [address] [place] [address] Dr. Thomas Sanchez RBC 4.18 106/ul Critically low 4.20-5.40 [facility] Comment on above: Performed By: #### A 1C #### [facility] [address] [place] [address] Dr. Thomas Sanchez WBC 8.9 103/ul Normal 4.0-11.0 [facility] Comment on above: Performed By: #### A 1C #### [facility] [address] [id number] Thomas Sanchez DIRECT COOMBSon 11-10-2022 DIRECT CARLOS Negative Normal [facility] Comment on above: Performed By: #### 4 [id number] #### [facility] [address] [place], [place] [address] Dr. Thomas Sanchez DRUG SCREEN RAPID (URINE)on 11-10-2022 AMP Negative Normal NEGATIVE [facility] Comment on above: Performed By: #### D RUGRPD ####[facility] [address] [address]Dr. Thomas Sanchez BAR Negative Normal NEGATIVE [facility] Comment on above: Performed By: #### D RUGRPD ####[facility] [address] [address]Dr. Thomas Sanchez BUP Negative Normal NEGATIVE [facility] Comment on above: Performed By: #### D RUGRPD ####[facility] [address] [address]Dr. Thomas Sanchez BZO Negative Normal NEGATIVE [facility] Comment on above: Performed By: #### D RUGRPD ####[facility] [address] [address]Dr. Thomas Sanchez MELANIE Negative Normal NEGATIVE [facility] Comment on above: Performed By: #### D RUGRPD ####[facility] [address] [address]Dr. Thomas Sanchez CUT-OFFS SEE BELOW Normal [facility] Comment on above: Result Comment: AMP (Amphetamine): 500ng/mL, BAR (Barbituates): 200 ng/mL, BZO (Benzodiazepines): 150 ng/mL, BUP (Buprenorphine): 10 ng/mL, MELANIE (Cocaine): 150 ng/mL, mAMP (Methamphetamine): 500 ng/mL, MTD (Methadone): 200 ng/mL, OPI (Opiates): 100 ng/mL, OXY (Oxycodone): 100 ng/mL, PCP (Phencyclidine): 25 ng/mL, PPX (Propoxyphene): 300 ng/mL, THC (Cannabinoids): 50 ng/mL, TCA (Trycyclic Antidepressants): 300 ng/mL Performed By: #### D RUGRPD ####[facility] [address] [id number]. Thomas Sanchez DRUG CUT HEADER DRUG CLASS TEST SYSTEM CUT-OFF CONCENTRATIONS ARE FOLLOWS: Normal [facility] Comment on above: Performed By: #### D RUGRPD ####[facility] [address] [address]Dr. Thomas Sanchez mAMP Negative Normal NEGATIVE [facility] Comment on above: Performed By: #### D RUGRPD ####[facility] [address] [place], [place] [address]Dr. Thomas Sanchez MTD Negative Normal NEGATIVE [facility] Comment on above: Performed By: #### D RUGRPD ####[facility] [address] [place], [place] [address]Dr. Thomas Sanchez OPI Negative Normal NEGATIVE [facility] Comment on above: Performed By: #### D RUGRPD ####[facility] [address] [place], [place] [address]Dr. Thomas Sanchez OXY Negative Normal NEGATIVE [facility] Comment on above: Performed By: #### D RUGRPD ####[facility] [address] [place], [place] [address]Dr. Thomas Sanchez PCP Negative Normal NEGATIVE [facility] Comment on above: Performed By: #### D RUGRPD ####[facility] [address] [place], [place] [address]Dr. Thomas Sanchez PPX Negative Normal NEGATIVE [facility] Comment on above: Performed By: #### D RUGRPD ####[facility] [address] [place], [place] [address]Dr. Constanceeric Sanchez TCA Negative Normal NEGATIVE [facility] Comment on above: Performed By: #### D RUGRPD ####[facility] [address] [place], [place] [address]Dr. Thomas Sanchez THC Negative Normal NEGATIVE [facility] Comment on above: Performed By: #### D RUGRPD ####[facility] [address] [place], [place] [address]EwDr. Thomas Sanchez TYPE AND SCREENon 11-10-2022 TYPE AND SCREEN Positive Normal [facility] Comment on above: Performed By: #### T NS #### [facility] [address] [place], [place] [address] Dr. Thomas Sanchez US PREG BIOPHY W [...] by: DALTON ARREGUIN Date: 2022-11-01 23:18 Normal [facility] GROUP B STREP CULTUREon S. agalactiae Ag Ql (Unsp spec) Isolate [...] S F Tetracycline >=16 R F Normal [facility] Comment on above: Performed By: #### 4 [id number] #### [facility] [address] [place], [place] [address] Dr. Thomas Sanchez US PREG BIOPHY W [...] by: MACHELLE PRUITT Date: 2022-10-16 15:01 Normal [facility] US PREG GROWTHon 10-16-2022 US PREG GROWTH [...] by: MACHELLE PRUITT Date: 2022-10-16 15:03 Normal [facility] US PREG BIOPHY W NON STRESSo n [...] authenticated by: DALTON ARREGUIN Date: 2022-10-02 15:27 [facility] US PREG BIOPHY W NON STRESSo n [...] by: DALTON ARREGUIN Date: 2022-09-25 15:14 Normal [facility] US PREG GROWTHon 09-25-2022 US PREG GROWTH [...] DALTON ARREGUIN Date: 2022-09-25 15:32 Normal [facility] GTT 3 HR PREGon 09-04-2022 Glucose [Mass/Vol] 87 mg/dL Normal 74-106 [facility] Comment on above: Performed By: #### 4 [id number] #### [facility] [address] [place] [address] Dr. Thomas Sanchez Glucose [Mass/Vol] 167 mg/dL Normal [facility] Comment on above: Performed By: #### 4 [id number] #### [facility] [address] [place] [address] Dr. Thomas Sanchez Glucose [Mass/Vol] 118 mg/dL Normal [facility] Comment on above: Performed By: #### 4 [id number] #### [facility] [address] [place] [address] Dr. Thoams Sanchez Glucose [Mass/Vol] 112 mg/dL Normal [facility] Comment on above: Performed By: #### 4 [id number] #### [facility] [address] [place] [address] Dr. Thomas Sanchez Covid-19 PCR ([facility])on 08-19 SARS-CoV-2 (COVID-19) RNA RENEE+probe Ql (Unsp spec) Not detected Normal NOT DETECTED [facility] Comment on above: Result Comment: This test is not yet approved or cleared by the [place] FDA. When there are no FDA-approved or cleared tests available, and other criteria are met, FDA can make tests available under an emergency access mechanism called an Emergency Use Authorization (EUA). The EUA for this test is supported by the Demographic Analyst of Health and Human Service's (HHS's) declaration [...] SARS-CoV-2. Performed By: #### A 1C #### [facility] [address] [place] [address] Dr. Thomas Sanchez GROUP A STREP CULTUREon 08-19 S. pyogenes Ag Ql (Unsp spec) Culture Observations: NEGATIVE FOR GROUP A STREPTOCOCCUS. Normal [facility] Comment on above: Performed By: #### A 1C #### [facility] [address] [place] [address] Dr. Thomas Sanchez INFLUENZA A AND B AGon 08-29 INFLUANEGH SEE BELOW Normal [facility] Comment on above: Result Comment: Nega tive for Flu A protein angiten. Infection due to Flu A cannot be ruled out. Flu A angiten in the sample may be below the detection limit of the test. Performed By: #### I NFLUAB ####[facility] [address] [place], [place] [address]Dr. Thomas Sanchez INFLUBNEGH SEE BELOW Normal [facility] Comment on above: Result Comment: Nega tive for Flu B protein antigen. Infection due to Flu B cannot be ruled out. Flu B antigen in the sample may be below the detection limit of the test. Performed By: #### I NFLUAB ####[facility] [address] [place], [place] [address]Dr. Thomas Sanchez INFLUENZA A AG Negative Normal NEGATIVE SEE COMMENT [facility] Comment on above: Performed By: #### I NFLUAB ####[facility] [address] [place], [place] [address]Dr. Thomas Sanchez INFLUENZA B AG Negative Normal NEGATIVE SEE COMMENT [facility] Comment on above: Performed By: #### I NFLUAB ####[facility] [address] [place], [place] [address]Dr. Thomas Sanchez STREPT SCREENon 08-29-2022 STREP SCREEN A Negative Normal NEGATIVE [facility] Comment on above: Performed By: #### G RASTCX, SSCRN ####[facility] [address] [place], [place] [address]Dr. Thomas Sanchez ANTIBODY SCREENon 08-17-2022 Antibody ID Anti-E Present [facility] ANTIBODY TITERon 08-17-2022 Ab Titer 1:8 G [facility] Antibody ID Anti-E Present [facility] Antibody Screenon 08-17-2022 Antibody screen Positive Normal [facility] Comment on above: Performed By: #### A BSN #### [facility] [employer] [address] [place] [address] Lpta: Braulio Narayanan MD Antibody Titeron 08-17-2022 Antibody Titer Antibody Anti-E Present Titer 1:8 [facility] Comment on above: Performed By: #### A BTT #### [address] [address] Lpta: Braulio Narayanan MD Glucose Dave Scr 50gon 2022 Glucose [Mass/Vol] 172 mg/dL High 70-135 [facility] Comment on above: Performed By: #### G LUSC #### [address] [address] Lpta: Braulio Narayanan MD Glu Administered via 50G COLA [facility] Comment on above: Performed By: #### G LUSC #### [address] [address] Lpta: Braulio Narayanan MD Glucose tolerance, 1 houron 08-17-2022 GLU ADMN 50G COLA [facility] Glucose tolerance screen 50g 172 mg/dL High 70 - 135 mg/dL [facility] Interpretation and review of laboratory results Abnormal [facility] Vivian Kiton 08-17-2022 Vivian Kit Forwarded to [facility] Comment on above: Performed By: #### N ATER #### [address] [address] Lpta: Braulio Narayanan MD CHLAMYDIA/GONOCOCCUS RENEE (SW AB/URINE/PAPon 07-31-2022 Chlamydia trachomatis, RENEE Negative Normal Negative [facility] Comment on above: Performed By: #### A 1C #### [facility] [address] [place], [place] [address] Dr. Thomas Sanchez Neisseria gonorrhoeae, RENEE Negative Normal Negative [facility] Comment on above: Performed By: #### A 1C #### [facility] [address] [place] [address] Dr. Thomas Sanchez PAP ACOG PANEL 2: 21 to 29on 07-31-2022 . . Normal [facility] Comment on above: Performed By: #### 4 [id number] #### [facility] [address] [place] [address] Dr. Thomas Sanchez Age Gdln ACOG Testing 21-29 [facility] Comment on above: Performed By: #### 4 [id number] #### [facility] [address] [place] [address] Dr. Thomas Sanchez DIAGNOSIS: Comment [facility] Comment on above: Result Comment: NEGA TIVE FOR INTRAEPITHELIAL LESION OR MALIGNANCY. Performed By: #### 4 [id number] #### [facility] [address] [place] [address] Dr. Thomas Sanchez Methodology: Comment [facility] Comment on above: Result Comment: This liquid based ThinPrep(R) pap test was screened with the use of an image guided system. Performed By: #### 4 [id number] #### [facility] [address] [place] [address] Dr. Thomas Sanchez Note: Comment [facility] Comment on above: Result Comment: The Pap smear is a screening test designed to aid in the detection of premalignant and malignant conditions of the uterine cervix. It is not a diagnostic procedure and should not be used as the sole means of detecting cervical cancer. Both false-positive and false-negative reports do occur. . Performed By: #### 4 [id number] #### [facility] [address] [place] [address] Dr. Thomas Sanchez Performed by: Comment Normal [facility] Comment on above: Result Comment: Jose Luis Oscar Fence [employer] Cutter (ASCP) Performed By: #### 4 [id number] #### [facility] [address] [place] [address] Dr. Thomas Sanchez Reflex Criteria: Comment [facility] Comment on above: Result Comment: The HPV DNA reflex criteria were not met with this specimen result therefore, no HPV testing was performed. . Performed By: #### 4 [id number] #### [facility] [address] [address] [address] Thomas Sanchez Specimen adequacy: Comment Normal [facility] Comment on above: Result Comment: Sati sfactory for evaluation. Endocervical and/or squamous metaplastic cells (endocervical component) are present. Performed By: #### 4 [id number] #### [facility] [address] [address] [address] Thomas Sanchez VAGINITIS/VAGINOSIS DNA PROB Tomás 07-30-2022 Qing species Negative Normal Negative [facility] Comment on above: Performed By: #### V AGINT #### [facility] [address] [address] [address] Thomas Sanchez Gardnerella vaginalis Negative Normal Negative [facility] Comment on above: Performed By: #### V AGINT #### [facility] [address] [place] [address] Dr. Thomas Sanchez Trichomonas vaginalis Negative Normal Negative [facility] Comment on above: Performed By: #### V AGINT #### [facility] [address] [place] [address] Dr. Thomas Sanchez US PREG INCOMPLETE ANATOMYon 07-28-2022 PREG INCOMPLETE ANATOMY EXAMINATION: US PREG INCOMPLETE ANATOMY HISTORY: screening COMPARISON: Ultrasound anatomy FINDINGS: Presentation: Breech Heart rate: 149 bpm Anatomy: Adequate visualization of the nose and lips/hard palate. GA: 24 weeks 1 day JOLYNN: 11/16/2022 IMPRESSION: 1. Single live intrauterine . 2. Visualization of the hard palate; no appreciable abnormality. Electronically authenticated by: DALTON ARREGUIN Date: 2022-07-28 14:13 Normal [facility] AFP MATERNAL FOR SPINA BIFID Aon 07-15-2022 AFP MoM Normal [facility] Comment on above: Performed By: #### A 1C #### [facility] [address] [place] [address] Dr. Thomas Sanchez AFP Value TNP Normal [facility] Comment on above: Result Comment: Test not performed Performed By: #### A 1C #### [facility] [address] [place] [address] Dr. Thomas Sanchez AFP, Serum for Spina Bifida [facility] Comment on above: Performed By: #### A 1C #### [facility] [address] [address] [address] Thomas Sanchez Comment [facility] Comment on above: Performed By: #### A 1C #### [facility] [address] [address] [address] Thomas Jaramillo Age Collection Date [facility] Comment on above: Performed By: #### A 1C #### [facility] [address] [address] [address] Thomas Sanchez Gestat, Age Based on [facility] Comment on above: Performed By: #### A 1C #### [facility] [address] [address] [address] Thomas Sanchez Insulin Dep Diabetes [facility] Comment on above: Performed By: #### A 1C #### [facility] [address] [address] [address] Thomas Sanchez Interpretation [facility] Comment on above: Performed By: #### A 1C #### [facility] [address] [address] [address] Thomas Sanchez Maternal Age at JOLYNN [facility] Comment on above: Performed By: #### A 1C #### [facility] [address] [address] [address] Thomas Sanchez Multiple Gestation [facility] Comment on above: Performed By: #### A 1C #### [facility] [address] [address] [address] Thomas Sanchez OSBR Risk 1 IN [facility] Comment on above: Performed By: #### A 1C #### [facility] [address] [address] [address] Thomas Sanchez PDF [facility] Comment on above: Performed By: #### A 1C #### [facility] [address] [address] [address] Thomas Sanchez [facility] Comment on above: Performed By: #### A 1C #### [facility] [address] [address] [address] Thomas Sanchez Test Results: [facility] Comment on above: Result Comment: Hermelinda mcqueen refer to the following specimen for additional lab results. See:[id number] Performed By: #### A 1C #### [facility] [address] [address] [address] Thomas Sanchez [facility] Comment on above: Performed By: #### A 1C #### [facility] [address] [address] [address] Thomas Sanchez [facility] Comment on above: Performed By: #### A 1C #### [facility] [address] [place] [address] Dr. Thomas Sanchez US PREG ANATOMY SINGLEon [...] by: DALTON ARREGUIN Date: 2022-06-30 16:16 Normal [facility] ANTIBODY ID PANELon 05-11-20 22 ANTIBODY ID PANEL Antibody ID Anti-E Blood Bank Notes TESTING DONE AT [facility] Normal [facility] Comment on above: Performed By: #### A BID #### [facility] [address] [address] [address] Thomas Sanchez RPR QUANTon 05-07-2022 Rapid Plasma Reagin, Quant Non-Reactive Normal NonRea<1:1 [facility] Comment on above: Result Comment: Plea se Note: This test does not meet current guidelines for screening and diagnosis of syphilis. This test is intended for following treatment response in patients being treated for syphilis infection. To screen for syphilis infection, a reflex cascade that includes both RPR and a treponema-specific assay should be utilized, such as Treponema pallidum (Syphilis) Screening [place] (319858) or Rapid Plasma Reagin (RPR) Test With Reflex to Quantitative RPR and Confirmatory Treponema pallidum Antibodies (097823). Performed By: #### A 1C #### [facility] [address] [place] [address] Dr. Thomas Sanchez HEP B SURFACE ANTIGEN SCREEN on 04-29-2022 HBsAg Screen Negative Normal Negative [facility] Comment on above: Performed By: #### H BSANS #### [facility] [address] [place] [address] Dr. Thomas Sanchez HEPATITIS C VIRUS AB W/ REFL EX QUANTon 04-29-2022 HCV AB <0.1 Normal 0.0-0.9 [facility] Comment on above: Performed By: #### A 1C #### [facility] [address] [place] [address] Dr. Thomas Sanchez Interpretation: Comment Normal [facility] Comment on above: Result Comment: Nega tive Not infected with HCV, unless recent infection is suspected or other evidence exists to indicate HCV infection. Performed By: #### A 1C #### [facility] [address] [address] [address] Thomas Sanchez HIV 1 AND 2 WITH REFLEXon HIV Screen 4th Generation wRfx Non-Reactive Normal Non Reactive [facility] Comment on above: Result Comment: HIV Negative HIV-1/HIV-2 antibodies and HIV-1 p24 antigen were NOT detected. There is no laboratory evidence of HIV infection. Performed By: #### H IV12 ####[facility] [address] [address]Dr. Thomas Sanchez RUBELLA AB IGGon 04-29-2022 Rubella Antibodies, IgG 3.00 index Normal Immune >0.99 [facility] Comment on above: Result Comment: Non- immune <0.90 Equivocal 0.90 - 0.99 Immune >0.99 Performed By: #### R UBIGG ####[facility] [address] [address]Dr. Thomas Sanchez CBC AUTO DIFFon 04-28-2022 BASO # 0.0 103/ul Normal 0.0-0.1 [facility] Comment on above: Performed By: #### A 1C #### [facility] [address] [place] [address] Dr. Thomas Sanchez Basophils/100 WBC (Bld) 0.3 % Normal 0.2-2.0 [facility] Comment on above: Performed By: #### A 1C #### [facility] [address] [place] [address] Dr. Thomas Sanchez EO # 0.1 103/ul Normal 0.0-0.7 [facility] Comment on above: Performed By: #### A 1C #### [facility] [address] [place] [address] Dr. Thomas Sanchez Eosinophils/100 WBC (Bld) 1.1 % Normal 0.9-7.0 [facility] Comment on above: Performed By: #### A 1C #### [facility] [address] [place] [address] Dr. Thomas Sanchez Erythrocyte distribution width (RBC) [Ratio] 12.3 % Normal 11.0-15.0 [facility] Comment on above: Performed By: #### A 1C #### [facility] [address] [place] [address] Dr. Thomas Sanchez Hematocrit (Bld) [Volume fraction] 39.0 % Normal 36.0-48.0 [facility] Comment on above: Performed By: #### A 1C #### [facility] [address] [place] [address] Dr. Thomas Sanchez Hemoglobin (Bld) [Mass/Vol] 13.7 g/dL Normal 12.0-16.0 [facility] Comment on above: Performed By: #### A 1C #### [facility] [address] [place] [address] Dr. Thomas Sanchez IG # 0.02 10e3/ul Normal 0.00-0.03 [facility] Comment on above: Performed By: #### A 1C #### [facility] [address] [place] [address] Dr. Thomas Sanchez IG % 0.2 % Normal 0.0-0.5 [facility] Comment on above: Performed By: #### A 1C #### [facility] [address] [place] [address] Dr. Thomas Sanchez LYMPH # 3.3 103/ul Normal 1.2-3.8 [facility] Comment on above: Performed By: #### A 1C #### [facility] [address] [place] [address] Dr. Thomas Sanchez Lymphocytes/100 WBC (Bld) 37.7 % Normal 20.5-60.0 [facility] Comment on above: Performed By: #### A 1C #### [facility] [address] [place] [address] Dr. Thomas Sanchez MANUAL DIFF REQ NO Normal [facility] Comment on above: Performed By: #### A 1C #### [facility] [address] [place] [address] Dr. Thomas Sanchez MCH (RBC) [Entitic mass] 30.0 pg Normal 26.7-34.0 [facility] Comment on above: Performed By: #### A 1C #### [facility] [address] [address] [address] Thomas Sanchez MCHC (RBC) [Mass/Vol] 35.1 g/dL Normal 29.9-35.2 [facility] Comment on above: Performed By: #### A 1C #### [facility] [address] [address] [address] Thomas Sanchez MCV (RBC) [Entitic vol] 85.3 fL Normal 81.0-99.0 [facility] Comment on above: Performed By: #### A 1C #### [facility] [address] [place] [address] Dr. Thomas Sanchez MONO # 0.6 103/ul Normal 0.3-0.8 [facility] Comment on above: Performed By: #### A 1C #### [facility] [address] [place] [address] Dr. Thomas Sanchez Monocytes/100 WBC (Bld) 6.3 % Normal 1.7-12.0 [facility] Comment on above: Performed By: #### A 1C #### [facility] [address] [place] [address] Dr. Thomas Sanchez NEUT # 4.8 103/ul Normal 1.4-6.5 [facility] Comment on above: Performed By: #### A 1C #### [facility] [address] [place] [address] Dr. Thomas Sanchez Neutrophils/100 WBC (Bld) 54.4 % Normal 43.0-75.0 [facility] Comment on above: Performed By: #### A 1C #### [facility] [address] [place] [address] Dr. Thomas Sanchez Platelet mean volume (Bld) [Entitic vol] 9.5 fL Normal 9.5-13.5 [facility] Comment on above: Performed By: #### A 1C #### [facility] [address] [place] [address] Dr. Thomas Sanchez PLT 164 103/ul Normal 150-450 [facility] Comment on above: Performed By: #### A 1C #### [facility] [address] [address] [address] Thomas Sanchez RBC 4.57 106/ul Normal 4.20-5.40 [facility] Comment on above: Performed By: #### A 1C #### [facility] [address] [place] [address] Dr. Thomas Sanchez WBC 8.8 103/ul Normal 4.0-11.0 [facility] Comment on above: Performed By: #### A 1C #### [facility] [address] [place] [address] Dr. Thomas Sanchez CULTURE URINEon 04-28-2022 CULTURE URINE Culture Observations: LIGHT GROWTH OF MIXED GENITAL ELDER. NO POTENTIAL PATHOGENS SEEN. Normal [facility] Comment on above: Performed By: #### U RCX #### [facility] [address] [place] [address] Dr. Thomas Sanchez GLYCOHEMOGLOBIN A1Con 2021 ADA RECOMMENDATION SEE BELOW Normal [facility] Comment on above: Result Comment: ADA RECOMMENDED LIMIT 4.0 - 6.0 ADA THERAPEUTIC TARGET < 7.0 ACTION SUGGESTED > 7.0 Performed By: #### A 1C #### [facility] [address] [place] [address] Dr. Thomas Sanchez Glucose [Mass/Vol] 91 mg/dL Normal [facility] Comment on above: Performed By: #### A 1C #### [facility] [address] [place] [address] Dr. Thomas Sanchez HbA1c (Bld) [Mass fraction] 4.8 % Normal 4.5-6.2 [facility] Comment on above: Performed By: #### A 1C #### [facility] [address] [place] [address] Dr. Thomas Sanchez VIVIAN BOX TEST PT SEND OUTo n 04-28-2022 SENT TO REF LAB 04/28/2022 Normal [facility] Comment on above: Performed By: #### N BOX #### [facility] [address] [place] [address] Dr. Thomas Sanchez TYPE AND SCREENon 04-28-2022 TYPE AND SCREEN Positive Normal [facility] Comment on above: Performed By: #### T NS #### [facility] [address] [address] [address] Thomas Sanchez CBC AUTO DIFFon 04-04-2022 BASO # 0.0 103/ul Normal 0.0-0.1 [facility] Comment on above: Performed By: #### A 1C #### [facility] [address] [address] [address] Thomas Sanchez Basophils/100 WBC (Bld) 0.4 % Normal 0.2-2.0 [facility] Comment on above: Performed By: #### A 1C #### [facility] [address] [address] [address] Thomas Sanchez EO # 0.2 103/ul Normal 0.0-0.7 [facility] Comment on above: Performed By: #### A 1C #### [facility] [address] [address] [address] Thomas Snachez Eosinophils/100 WBC (Bld) 2.3 % Normal 0.9-7.0 [facility] Comment on above: Performed By: #### A 1C #### [facility] [address] [address] [address] Thomas Sanchez Erythrocyte distribution width (RBC) [Ratio] 12.1 % Normal 11.0-15.0 [facility] Comment on above: Performed By: #### A 1C #### [facility] [address] [address] [address] Thomas Sanchez Hematocrit (Bld) [Volume fraction] 39.3 % Normal 36.0-48.0 [facility] Comment on above: Performed By: #### A 1C #### [facility] [address] [address] [address] Thomas Sanchez Hemoglobin (Bld) [Mass/Vol] 13.6 g/dL Normal 12.0-16.0 [facility] Comment on above: Performed By: #### A 1C #### [facility] [address] [address] [address] Thomas Sanchez IG # 0.02 10e3/ul Normal 0.00-0.03 [facility] Comment on above: Performed By: #### A 1C #### [facility] [address] [place] [address] Dr. Thomas Sanchez IG % 0.3 % Normal 0.0-0.5 [facility] Comment on above: Performed By: #### A 1C #### [facility] [address] [place] [address] Dr. Thomas Sanchez LYMPH # 3.3 103/ul Normal 1.2-3.8 [facility] Comment on above: Performed By: #### A 1C #### [facility] [address] [place] [address] Dr. Thomas Sanchez Lymphocytes/100 WBC (Bld) 41.6 % Normal 20.5-60.0 [facility] Comment on above: Performed By: #### A 1C #### [facility] [address] [place] [address] Dr. Thomas Sanchez MANUAL DIFF REQ NO Normal [facility] Comment on above: Performed By: #### A 1C #### [facility] [address] [place] [address] Dr. Thomas Sanchez MCH (RBC) [Entitic mass] 29.8 pg Normal 26.7-34.0 [facility] Comment on above: Performed By: #### A 1C #### [facility] [address] [place] [address] Dr. Thomas Sanchez MCHC (RBC) [Mass/Vol] 34.6 g/dL Normal 29.9-35.2 [facility] Comment on above: Performed By: #### A 1C #### [facility] [address] [place] [address] Dr. Thomas Sanchez MCV (RBC) [Entitic vol] 86.0 fL Normal 81.0-99.0 [facility] Comment on above: Performed By: #### A 1C #### [facility] [address] [place] [address] Dr. Thomas Sanchez MONO # 0.4 103/ul Normal 0.3-0.8 [facility] Comment on above: Performed By: #### A 1C #### [facility] [address] [place] [address] Dr. Thomas Sanchez Monocytes/100 WBC (Bld) 5.4 % Normal 1.7-12.0 [facility] Comment on above: Performed By: #### A 1C #### [facility] [address] [place] [address] Dr. Thomas Sanchez NEUT # 4.0 103/ul Normal 1.4-6.5 [facility] Comment on above: Performed By: #### A 1C #### [facility] [address] [place] [address] Dr. Thomas Sanchez Neutrophils/100 WBC (Bld) 50.0 % Normal 43.0-75.0 [facility] Comment on above: Performed By: #### A 1C #### [facility] [address] [place] [address] Dr. Thomas Sanchez Platelet mean volume (Bld) [Entitic vol] 9.5 fL Normal 9.5-13.5 [facility] Comment on above: Performed By: #### A 1C #### [facility] [address] [place] [address] Dr. Thomas Sanchez PLT 209 103/ul Normal 150-450 [facility] Comment on above: Performed By: #### A 1C #### [facility] [address] [place] [address] Dr. Thomas Sanchez RBC 4.57 106/ul Normal 4.20-5.40 [facility] Comment on above: Performed By: #### A 1C #### [facility] [address] [place] [address] Dr. Thomas Sanchez WBC 8.0 103/ul Normal 4.0-11.0 [facility] Comment on above: Performed By: #### A 1C #### [facility] [address] [place] [address] Dr. Thomas Sanchez PROF 14(COMP METB)on 022 Albumin [Mass/Vol] 2.9 g/dL Critically low 3.4-5.0 [facility] Comment on above: Performed By: #### H RAVINDER, CMP ####[facility] [address] [address]Dr. Thomas Sanchez Albumin/Globulin [Mass ratio] 0.8 {ratio} Normal [facility] Comment on above: Performed By: #### H RAVINDER, CMP ####[facility] [address] [address]Dr. Thomas Sanchez ALP [Catalytic activity/Vol] 75 U/L Normal 46-116 [facility] Comment on above: Performed By: #### H RAVINDER, CMP ####[facility] [address] [address]Dr. Thomas Sanchez ALT [Catalytic activity/Vol] 14 U/L Normal 14-59 [facility] Comment on above: Performed By: #### H RAVINDER, CMP ####[facility] [address] [address]Dr. Thomas Sanchez Anion gap [Moles/Vol] 10.2 mmol/L Normal [facility] Comment on above: Performed By: #### H RAVINDER, CMP ####[facility] [address] [place], [place] [address]Dr. Thomas Sanchez AST [Catalytic activity/Vol] 9 U/L Critically low 15-37 [facility] Comment on above: Performed By: #### H RAVINDER, CMP ####[facility] [address] [address]Dr. Thomas Sanchez Bilirubin [Mass/Vol] 0.3 mg/dL Normal 0.2-1.0 [facility] Comment on above: Performed By: #### H RAVINDER, CMP ####[facility] [address] [address]Dr. Thomas Sanchez Calcium [Mass/Vol] 8.8 mg/dL Normal 8.5-10.1 [facility] Comment on above: Performed By: #### H RAVINDER, CMP ####[facility] [address] [address]Dr. Thomas Sancehz Chloride [Moles/Vol] 105 mmol/L Normal 98-107 [facility] Comment on above: Performed By: #### H STROPN, CMP ####[facility] [address] [id number][address] Thomas Sanchez CO2 [Moles/Vol] 24.4 mmol/L Normal 21.0-32.0 [facility] Comment on above: Performed By: #### H STROPN, CMP ####[facility] [address] [address]Dr. Thomas Sanchez Creatinine [Mass/Vol] 0.95 mg/dL Normal 0.55-1.02 [facility] Comment on above: Performed By: #### H STROPN, CMP ####[facility] [address] [id number][address] Thomas Sanchez EGFR-AF LITHUANIAN >60 Normal >=60 [facility] Comment on above: Performed By: #### H STROPN, CMP ####[facility] [address] [address]Dr. Thomas Sanchez EGFR-NON AF LITHUANIAN >60 Normal >=60 [facility] Comment on above: Performed By: #### H STROPN, CMP ####[facility] [address] [id number]. Thomas Sanchez Globulin (S) [Mass/Vol] 3.6 g/dL Normal [facility] Comment on above: Performed By: #### H STROPN, CMP ####[facility] [address] [id number]. Thomas Sanchez Glucose [Mass/Vol] 138 mg/dL Critically high 74-[address] [facility] Comment on above: Performed By: #### H STROPN, CMP ####[facility] [address] [id number]. Thomas Sanchez Potassium [Moles/Vol] 3.6 mmol/L Normal 3.5-5.1 [facility] Comment on above: Performed By: #### H STROPN, CMP ####[facility] [address] [id number][address] Thomas Sanchez Protein [Mass/Vol] 6.5 g/dL Normal 6.4-8.2 [facility] Comment on above: Performed By: #### H RAVINDER, CMP ####[facility] [address] [address]Dr. Thomas Sanchez Sodium [Moles/Vol] 136 mmol/L Normal 136-145 [facility] Comment on above: Performed By: #### H BERHANEPN, CMP ####[facility] [address] [address]Dr. Thomas Sanchez Urea nitrogen [Mass/Vol] 8.0 mg/dL Normal 7.0-18.0 [facility] Comment on above: Performed By: #### H RAVINDER, CMP ####[facility] [address] [address]Dr. Thomas Sanchez Urea nitrogen/Creatinine [Mass ratio] 8.4 mg/mg Normal [facility] Comment on above: Performed By: #### H RAVINDER, CMP ####[facility] [address] [address]Dr. Thomas Sanchez TROPONIN, HIGH SENSITIVITYon 04-04-2022 HSTROP 4.8 pg/mL Normal 4.0-51.3 [facility] Comment on above: Result Comment: CUT- OFF POINTS HAVE BEEN ESTABLISHED BASED ON THE FOURTH UNIVERSAL DEFINITIONS OF MYOCARDIAL INFARCTION. THE UPPER REFERENCE LIMIT (URL) OF TROPONIN, DEFINED THE 99TH PERCENTILE OF cTnI DISTRIBUTION IN A REFERENCE POPULATION, HAS BEEN CONFIRMED THE DECISION THRESHOLD FOR [place] DIAGNOSIS. Performed By: #### H RAVINDER, CMP ####[facility] [address] [id number]. Thomas Sanchez XR CHEST 1 Von 04-04-2022 XR CHEST 1 V EXAM: XR CHEST 1 V HISTORY: CHEST PAIN, UNSPECIFIED COMPARISON: None available TECHNIQUE: Single frontal view chest x-ray FINDINGS: No lobar consolidation, large pleural effusions, pneumothorax, or acute bony abnormality. Cardiac size is unremarkable. IMPRESSION: No radiographic evidence for acute chest abnormality. Electronically authenticated by: ASHLEY BEASLEY Date: 2022-04-04 00:25 Normal [facility] US PREG TVon 03-31-2022 US PREG TV [...] by: DALTON ARREGUIN Date: 2022-03-31 16:30 Normal [facility] C BP Strepon 03-25-2019 C BP Strep order added by system This is strictly a screening test for Strep Group A( Streptococcus pyogenes). No other pathogens will be noted. ------- Final Backup plate negative for Group A Streptococus Resulted at [facility] Comment on above: Performed By: #### . Automated Diff #### [place] [address] ED Clinical Summaryon 2018 ED Clinical Summary [address] [id number] ED Clinical Summary Person Information Name: John Paul Schilling [facility] Age: 18 Years : 2000 Sex: Female PCP: FLAKITO Triplett CNP, Amy Jo Marital Status: Single Phone: Race: White Ethnicity: Not or Language: [place] Islander Visit Reason: Throat pain - Adult; Throat pain Acuity: 4 Enc Type: Emergency Med Service: Emergency Medicine Arrival: 03/23/2019 21:06:04 Discharge: 03/23/2019 22:45:00 LOS: 000 01:39 Checkin: 03/23/2019 21:06:04 Checkout: 03/23/2019 22:45:00 Dispo Type: Home or Self Care Address: [address] [address] Provider Notes: Diagnosis: 1:Pharyngitis Problems No Problems [...] Visit Final Med List: New Medications [facility] [address] [place], [place] [id number], [phone] clindamycin (clindamycin 300 mg oral capsule) 1 Capsules Oral (given by mouth) every 8 hours for 10 Days. Refills: 0., Take Probiotics while on antibiotic therapy Last Dose: Medications that have not changed Other Medications ARIPiprazole (Abilify 10 mg oral tablet) 1 Tabs Oral (given by mouth) every day. Refills: 1. Last Dose: escitalopram (Lexapro 10 mg oral tablet) 1 Tabs Oral (given by mouth) every day. Refills: 1. Last Dose: [facility] [address], [place] [phone], [phone] clindamycin (clindamycin 300 mg oral capsule) 1 [...] on antibiotic therapy With: Address: When: Jodi [address], [address], [address] [place] [phone] Business ([employer]) Within 2 to 4 days Type Location Start Finish State Established Patient Visit 15 [facility] 04/13/2019 11:00:00 04/13/2019 11:15:00 Confirmed Discharge Orders: Discharge Patient 03/23/19 22:33:00 EDT, Discharge to Home, Self Return to Work/School 03/23/19 22:40:00 EDT, 03/23/19 22:40:00 EDT, Patient is Negative for Strep Pharyngitis, 03/23/19 22:40:00 EDT, Pharyngitis Patient Education Information: Self-Care for Sore Throats [facility] Poison Help line: . [facility] Hotline: [place] Tobacco Quit Line: [place], [place]) [address]: [phone] [place], [place]) [address]: [phone] [facility] [address] [place], [place]: [phone] [facility] ED Note-Physicianon 03-24-20 ED Note-Physician Chief Complaint [...] polydipsia, polyuria, marked weight changes, heat/cold intolerance] HEMATOLOGIC/LYMPHATI C: [Negative for swollen lymph nodes, abnormal bleeding, [...] and prescribed were discussed with the patient. Reexamination/Reeval uation Patient is alert, not in acute distress and hemodynamically stable at discharge. Assessment/Plan 1. Pharyngitis Ordered: clindamycin, 1 caps, Oral, q8hr, X 10 days, # 30 caps, 0 Refill(s), 04/02/19 22:31:00 EDT, Pharmacy: [facility] Return to Work/School Orders: Culture [...] data available (MRI) Electronically signed by Cricket Paulette RIVAS 03/24/19 03:38 EDT Normal [facility] Strep Aon 03-24-2019 Strep A Negative Normal Negative [facility] Comment on above: Result Comment: This test will indicate the presence of Strep A antigen in the specimen from both viable and non-viable Group A Strepcoccus bacteria. Results must be interpreted together with other clinical information available to the clinician. Performed By: #### C [id number] #### [address] [address] .eGFRon 03-09-2019 eGFR Non-AA >60 Normal >=60 [facility] Comment on above: Result Comment: Resu lt [...] dosing. Performed By: #### E GFR #### [address] [address] eGFR AA >60 Normal >=60 [facility] Comment on above: Result Comment: Resu lt = 0-14.9 mL/min/1.73 m2 Kidney failure or Dialysis Result = 15-29 mL/min/1.73 m2 Severe decrease in GFR Result = 30-59 mL/min/1.73 m2 Moderate decrease in GFR Result >= 60 mL/min/1.73 m2 Normal or increased GFR Performed By: #### E GFR #### [address] [place] [address] CBC w/ Diffon 03-09-2019 Erythrocyte distribution width (RBC) [Ratio] 13.0 % Normal 11.6-14.8 [facility] Comment on above: Performed By: #### C BC #### [address] [address] Hematocrit (Bld) [Volume fraction] 42.5 % Normal 36.0-46.0 [facility] Comment on above: Performed By: #### C BC #### [address] [address] Hemoglobin (Bld) [Mass/Vol] 14.5 g/dL Normal 12.0-16.0 [facility] Comment on above: Performed By: #### C BC #### [address] [address] MCH (RBC) [Entitic mass] 30.9 pg Normal 27.0-35.0 [facility] Comment on above: Performed By: #### C BC #### [address] [address] MCHC (RBC) [Mass/Vol] 34.0 % Normal 31.0-37.0 [facility] Comment on above: Performed By: #### C BC #### [address] [address] MCV (RBC) [Entitic vol] 91.1 fL Normal 80.0-100.0 [facility] Comment on above: Performed By: #### C BC #### [address] [address] Platelet mean volume (Bld) [Entitic vol] 8.1 fL Normal 6.7-10.6 [facility] Comment on above: Performed By: #### C BC #### [address] [address] Platelets (Bld) [#/Vol] 196 x10*3/mcL Normal 150-350 [facility] Comment on above: Performed By: #### C BC #### [address] [address] RBC (Bld) [#/Vol] 4.67 x10*6/mcL Normal 3.80-5.[address] [facility] Comment on above: Performed By: #### C BC #### [address] [address] WBC (Bld) [#/Vol] 7.3 x10*3/mcL Normal 4.5-11.0 [facility] Comment on above: Performed By: #### C BC #### [address] [address] CMPon 03-09-2019 Albumin [Mass/Vol] 3.9 g/dL Normal 3.2-4.9 [facility] Comment on above: Result Comment: [facility] Laboratory updated the methodology used for albumin testing on 02/23/18. Albumin measurement was performed using a bromcresol purple dye-binding assay. Performed By: #### C OMP #### [address] [address] Albumin/Globulin [Mass ratio] 1.4 {ratio} Normal 1.1-2.2 [facility] Comment on above: Performed By: #### C OMP #### [address] [address] Alk Phos 82 IU/L Normal 40-195 [facility] Comment on above: Performed By: #### C OMP #### [address] [address] ALT [Catalytic activity/Vol] 61 U/L High 14-54 [facility] Comment on above: Performed By: #### C OMP #### [address] [address] Anion gap [Moles/Vol] 12 mmol/L Normal 7-17 [facility] Comment on above: Performed By: #### C OMP #### [address] [address] AST [Catalytic activity/Vol] 32 U/L Normal 15-41 [facility] Comment on above: Performed By: #### C OMP #### [address] [address] Bili Total 1.1 mg/dL Normal 0.3-1.2 [facility] Comment on above: Performed By: #### C OMP #### [address] [place] [address] Calcium [Mass/Vol] 9.1 mg/dL Normal 8.5-10.3 [facility] Comment on above: Performed By: #### C OMP #### [address] [address] Chloride [Moles/Vol] 107 mmol/L Normal 98-110 [facility] Comment on above: Performed By: #### C OMP #### [address] [address] CO2 [Moles/Vol] 24 mmol/L Normal 22-32 [facility] Comment on above: Performed By: #### C OMP #### [address] [place] [address] Creatinine [Mass/Vol] 0.94 mg/dL Normal 0.44-1.03 [facility] Comment on above: Performed By: #### C OMP #### [address] [place] [address] Glucose [Mass/Vol] 91 mg/dL Normal 74-118 [facility] Comment on above: Performed By: #### C OMP #### [address] [place] [address] Potassium [Moles/Vol] 3.7 mmol/L Normal 3.4-4.8 [facility] Comment on above: Performed By: #### C OMP #### [address] [place] [address] Protein [Mass/Vol] 6.7 g/dL Normal 6.5-8.1 [facility] Comment on above: Performed By: #### C OMP #### [address] [address] Sodium [Moles/Vol] 139 mmol/L Normal 133-142 [facility] Comment on above: Performed By: #### C OMP #### [address] [address] Urea nitrogen [Mass/Vol] 21 mg/dL Normal 8-26 [facility] Comment on above: Performed By: #### C OMP #### [address] [address] Urea nitrogen/Creatinine [Mass ratio] 22.3 mg/mg High 10.0-20.0 [facility] Comment on above: Performed By: #### C OMP #### [address] [address] Diff Autoon 03-09-2019 Baso Absolute 0.0 x10*3/mcL Normal 0.0-0.2 [facility] Comment on above: Performed By: #### . Automated Diff #### [address] [address] Basophils/100 WBC (Bld) 0.6 % Normal 0.0-1.5 [facility] Comment on above: Performed By: #### . Automated Diff #### [address] [address] Eos Absolute 0.3 x10*3/mcL Normal 0.0-0.4 [facility] Comment on above: Performed By: #### . Automated Diff #### [address] [address] Eosinophils/100 WBC (Bld) 3.9 % Normal 0.0-5.4 [facility] Comment on above: Performed By: #### . Automated Diff #### [address] [address] Lymphocytes (Bld) [#/Vol] 3.1 x10*3/mcL Normal 1.2-5.2 [facility] Comment on above: Performed By: #### . Automated Diff #### [address] [address] Lymphocytes/100 WBC (Bld) 43.0 % High 28.0-42.0 [facility] Comment on above: Performed By: #### . Automated Diff #### [address] [address] Brantley Absolute 0.5 x10*3/mcL Normal 0.1-1.1 [facility] Comment on above: Performed By: #### . Automated Diff #### [address] [address] Monocytes/100 WBC (Bld) 7.4 % Normal 3.7-11.9 [facility] Comment on above: Performed By: #### . Automated Diff #### [address] [address] Neutro Absolute 3.3 x10*3/mcL Normal 1.8-8.0 [facility] Comment on above: Performed By: #### . Automated Diff #### [address] [address] Neutro Auto 45.1 % Low 45.6-68.4 [facility] Comment on above: Performed By: #### . Automated Diff #### [address] [address] Family Medicine Office/Clini c Noteon 03-09-2019 Family Medicine Office/Clinic Note Chief Complaint Establish Care pt is here to establish care, pt has been dx w/ anxiety,depression and bi-polar,Pt states she was seeing but not any longer, she thinks lexapro needs to be increased, pt states when she has anxiety attack she itches her feet to were they bleed wantsmed [1] History of Present Illness new patient reports was diagnosed with bipolar, was seeing [facility] reports she is galeano, happy, upset,depressed within minutes reports getting 4-5 hours lives in [place]-has SSI-learning disability has Nexplanon no thoughts of [...] Daily, # 30 tabs, 1 Refill(s), Pharmacy: [facility] escital[facility]ram, 1 tabs, Oral, Daily, # 30 tabs, 1 Refill(s), Pharmacy: [facility] Problem List/Past Medical History Ongoing No qualifying [...] No qualifying data available (MRI) [1] Adult Inbound [employer] Specialist Intake and History; Stephanie Nickerson 03/09/2019 09:03 EDT Electronically signed by [employer] COPYRIGHT EXPERT, UNDERGROUND SUPERVISOR, Jodi Enid 03/09/19 09:35 EDT Normal [facility] Lipid Panelon 03-09-2019 Cholesterol in LDL [Mass/Vol] 118 mg/dL High 0-99 [facility] Comment on above: Result Comment: The equation being used in this calculation is LDL = (Chol - HDL) - (Trig / 5) The optimal value of LDL for individual patients may vary. The patient's history of Artherosclerosis and other cardiac risk factors should be considered. Performed By: #### L CABALLERO #### [address] [address] Cardiac Risk 4.7 Normal [facility] Comment on above: Result Comment: Men Women 1/2 Average 3.43 3.27 Average 4.97 4.44 2x Average 9.55 7.05 3x Average 23.99 11.04 Performed By: #### L CABALLERO #### [address] [address] Cholesterol [Mass/Vol] 185 mg/dL Normal 25-199 [facility] Comment on above: Result Comment: 0 - 17 years of age: Desirable 0-170 Borderline High 170-199 High >=200 18 years and older: Acceptable <200 Borderline High 200-239 High >=240 Performed By: #### L CABALLERO #### [address] [address] Cholesterol in HDL [Mass/Vol] 39.0 mg/dL Low 40.0-60.0 [facility] Comment on above: Performed By: #### L CABALLERO #### [address] [address] Cholesterol in VLDL [Mass/Vol] 28 mg/dL Normal 8-39 [facility] Comment on above: Performed By: #### L CABALLERO #### [facility] [address] [place] [address] Triglyceride [Mass/Vol] 142 mg/dL Normal [facility] Comment on above: Result Comment: 0 - 17 years of age: Trig 90 - 129 Borderline High Trig => 130 High 18 years and older: Trig 150 - 199 Borderline High Trig 200 - 499 High Trig =>500 Very High Performed By: #### L CABALLERO #### [address] [address] TSH w/ Rflx Free T4on 2018 TSH Qn 3.18 mcIU/mL Normal 0.45-5.33 [facility] Comment on above: Result Comment: Refe rence Ranges for individuals from to 18 years of age were obtained from The Miroslava Patterson Handbook (20 ed) published by [facility]. Reference Ranges for Females: Females, 1st Trimester 0.05 ? 3.7 uIU/mL Females, 2nd Trimester 0.31 ? 4.35 uIU/mL Females, 3rd Trimester 0.41 ? 5.18 uIU/mL Performed By: #### T SHRT4 #### [address] [address] Vital Signs Date Time Vital Sign Value Performing Clinician Facility 12-14-2024 15:[id number] Body height 165.1 cm Pietro Sanchez MD Work Phone: [facility] 12-14-2024 15:29-0400 Body mass index (BMI) [Ratio] 47.09 kg/m2 Pietro Sanchze MD Work Phone: [facility] 12-14-2024 15:29-040 Body temperature 98.01 [degF] Pietro Sanchez MD Work Phone: [facility] 12-14-2024 15:29-040 Body weight 128.37 kg Pietro Sanchez MD Work Phone: [facility] 12-14-2024 15:29-0400 Diastolic blood pressure 74 mm[Hg] Pietro Sanchez MD Work Phone: [facility] 12-14-2024 15:29-0400 Heart rate 61 /min Pietro Sanchez MD Work Phone: [facility] 12-14-2024 15:29-0400 SaO2% (BldA) [Mass fraction] 98 % Pietro Sanchez MD Work Phone: [facility] 12-14-2024 15:29-0400 Systolic blood pressure 124 mm[Hg] Pietro Sanchez MD Work Phone: [facility] 10-31-2024 15:05-0400 Body height 162.6 cm Pietro Sanchez MD Work Phone: [facility] 10-31-2024 15:05-0400 Body mass index (BMI) [Ratio] 49.26 kg/m2 Pietro Sanchez MD Work Phone: [facility] 10-31-2024 15:05-0400 Body temperature 97.5 [degF] Pietro Sanchez MD Work Phone: [facility] 10-31-2024 15:05-0400 Body weight 130.18 kg Pietro Sanchez MD Work Phone: [facility] 10-31-2024 15:05-0400 Diastolic blood pressure 68 mm[Hg] Pietro Sanchez MD Work Phone: [facility] 10-31-2024 15:05-0400 Heart rate 65 /min Pietro Sanchez MD Work Phone: [facility] 10-31-2024 15:05-0400 SaO2% (BldA) [Mass fraction] 97 % Pietro Sanchez MD Work Phone: [facility] 10-31-2024 15:05-0400 Systolic blood pressure 120 mm[Hg] Pietro Sanchez MD Work Phone: [facility] 07-25-2024 11:32-0500 Body height 162.6 cm Pietro Sanchez MD Work Phone: [facility] 07-25-2024 11:32-0500 Body mass index (BMI) [Ratio] 51.49 kg/m2 Pietro Sanchez MD Work Phone: [facility] 07-25-2024 11:32-0500 Body temperature 97.59 [degF] Pietro Sanchez MD Work Phone: [facility] 07-25-2024 11:32-0500 Body weight 136.08 kg Pietro Sanchez MD Work Phone: [facility] 07-25-2024 11:32-0500 Diastolic blood pressure 74 mm[Hg] Pietro Sanchez MD Work Phone: [facility] 07-25-2024 11:32-0500 Heart rate 73 /min Pietro Sanchez MD Work Phone: [facility] 07-25-2024 11:32-0500 SaO2% (BldA) [Mass fraction] 98 % Pietro Sanchez MD Work Phone: [facility] 07-25-2024 11:32-0500 Systolic blood pressure 128 mm[Hg] Pietro Sanchez MD Work Phone: [facility] Encounters Encounter Date Encounter Type Care Provider Facility Start: 03-20-2025 ambulatory [facility] Start: 03-06-2025 End: 03-06-2025 Evaluation and management of inpatient PHYLLIS Barron SHAR [facility] Start: 02-16-2025 ambulatory [facility] Start: 02-09-2025 End: 02-09-2025 Emergency department patient visit PIETRO SANCHEZ [facility] [place] Start: 01-16-2025 ambulatory [facility] Start: 12-27-2024 End: 12-27-2024 Refill Pietro Sanchez MD Work Phone: [facility] Comment on above: Bipolar affective di sorder, currently depressed, moderate ([facility]); Primary insomnia Start: 12-18-2024 ambulatory [facility] Start: 12-14-2024 End: 12-14-2024 Office outpatient visit 25 minutes Pietro Sanchez MD Work Phone: [facility] Comment on above: Trimalleolar fractur e of ankle, closed, left, sequela (Primary Dx); Bipolar affective disorder, currently depressed, moderate ([facility]) Start: 12-14-2024 End: 12-14-2024 ambulatory [facility] Start: 12-12-2024 ambulatory [facility] Start: 12-12-2024 End: 12-12-2024 Evaluation and management of inpatient PHYLLIS J [facility] Start: 12-03-2024 End: 12-03-2024 Emergency department patient visit [facility] Start: 11-27-2024 End: 11-28-2024 Refill Pietro Sanchez MD Work Phone: [facility] Comment on above: Bipolar affective di sorder, currently depressed, moderate ([facility]); Primary insomnia Start: 10-31-2024 End: 10-31-2024 Office outpatient visit 25 minutes Pietro Sanchez MD Work Phone: [facility] Comment on above: Bipolar affective di sorder, currently depressed, moderate ([facility]) (Primary Dx); Primary insomnia; Suprapubic pain Start: 10-31-2024 End: 10-31-2024 ambulatory [facility] Start: 08-21-2024 End: 08-21-2024 Refill Pietro Sanchez MD Work Phone: [facility] Comment on above: Bipolar affective di sorder, currently depressed, moderate ([facility]) Start: 07-28-2024 End: 07-28-2024 Emergency department patient visit PIETRO SANCHEZ [facility] [place] Start: 07-25-2024 End: 07-25-2024 Office outpatient new 45 minutes Pietro Sanchez MD Work Phone: [facility] Comment on above: Bipolar affective di sorder, currently depressed, moderate (CMS-HCC) (Primary Dx); Candidal vaginitis; Dysuria; Vaginal discharge Start: 07-25-2024 End: 07-25-2024 ambulatory SHAD Pathak [facility] Start: 11-26-2023 End: 11-26-2023 ambulatory JODI HOWE Not Available Start: 11-11-2023 End: 11-11-2023 ambulatory JODI CARLEY Not Available Start: 09-21-2023 End: 09-21-2023 ambulatory JODI HOWE Not Available Start: 11-10-2022 End: 11-12-2022 Evaluation and management of inpatient DR EBONI ALICIA . Facility:[facility] Start: 11-06-2022 ambulatory JODI HOWE . Facility:[facility] Start: 11-03-[address] RIK HENRY [...] Start: 08-17-2022 End: 08-18-[address] [facility] Start: 08-17-2022 End: 08-17-2022 Subsequent hospital visit by physician [facility] Start: 08-05-2022 ambulatory DOCTOR MISC Facility :[facility] Start: 07-28-2022 End: 07-28-[address] CASTAÑEDA MISC Facility:[facility] Start: 07-28-2022 End: 07-29-[address] CASTAÑEDA MISC Facility:[facility] Start: 07-14-2022 End: 07-15-[address] CASTAÑEDA MISC Facility:[facility] Start: 06-30-2022 End: 07-01-[address] CASTAÑEDA MISC Facility:[facility] Start: 05-06-2022 End: 05-07-[address] CASTAÑEDA MISC Facility:[facility] Start: 04-28-2022 End: 04-29-[address] RIK HENRY . Facility:[facility] Start: 04-04-2022 End: 04-04-[address] EDIE CALDWELL Facility:[facility] Start: 03-31-2022 End: 04-01-[address] RIK HENRY . Facility:[facility] Start: 03-23-2019 End: 03-24-2019 Emergency department patient visit Jodi Triplett Facility:[facility] Start: 03-09-2019 End: 03-10-2019 Patient encounter procedure JODI TRIPLETT Facility:[facility] Procedures Date Procedure Procedure Detail Performing Clinician Start: 10-31-2024 Adult depression scr eening assessment Pietro Sanchez MD Work Phone: Start: 07-25-2024 Adult depression scr eening assessment Pietro Sanchez MD Work Phone: Start: 11-12-[address] EMELY OR MISC Comment on above: Performed By: #### A BSCRLC ####[facility] [id number] [place], [place] [address]JaDo Sanchez Start: 11-10-2022 Delivery of Products of Conception, External Approach DR DOCTOR ALVARADO Start: 11-10-2022 Drainage of Amniotic Fluid, Therapeutic from Products of Conception, Via Natural or Artificial Opening DR DOCTOR ALVARADO Start: 11-10-2022 Introduction of Othe r Hormone into Peripheral Vein, Percutaneous Approach DR DOCTOR ALVARADO Start: 08-17-2022 Antibody screen Start: 08-17-2022 End: 08-17-2022 Antihuman globulin indirect each antibody titer Estefany Romero MD Work Phone: Start: 08-17-[address] gtt 3 specimens Estefany Romero MD Work Phone: Plan of Treatment Date Care Activity Detail Author Start: 12-03-2034 DTaP,Tdap and Td Vaccines (9 - Td or Tdap) DTaP,Tdap and Td Vaccines (9 - Td or Tdap) [facility] Start: 10-19-2028 DTaP,Tdap and Td Vaccines (8 - Td or Tdap) DTaP,Tdap and Td Vaccines (8 - Td or Tdap) [facility] Start: 10-19-2028 DTaP/Tdap/Td vaccine (5 - Td or Tdap) DTaP/Tdap/Td vaccine (5 - Td or Tdap) [facility] Start: 12-14-2025 Adult BMI Screening Adult BMI Screen ing [facility] Start: 12-14-2025 Tobacco Screening Tobacco Screening [facility] Start: 12-12-2025 Adult BMI Screening Adult BMI Screen ing [facility] Start: 12-12-2025 Tobacco Screening Tobacco Screening [facility] Start: 10-31-2025 Adult BMI Screening Adult BMI Screen ing [facility] Start: 10-31-2025 Depression Screening Depression Scre ening [facility] Start: 10-31-2025 Tobacco Screening Tobacco Screening [facility] Start: 07-28-2025 Adult BMI Screening Adult BMI Screen ing [facility] Start: 07-28-2025 Tobacco Screening Tobacco Screening [facility] Start: 07-25-2025 Adult BMI Screening Adult BMI Screen ing [facility] Start: 07-25-2025 Depression Screening Depression Scre ening [facility] Start: 07-25-2025 Tobacco Screening Tobacco Screening [facility] Start: 03-19-2025 Influenza vaccination Influenza Vacc ine [facility] Start: 12-29-2024 End: 12-29-2024 Patient encounter procedure 12/29/2024 1:00 PM EDT Appointment [facility] [address] [place] [phone] Arrived [facility] Comment on above: Arrived Start: 12-14-2024 End: 12-14-2024 Patient encounter procedure 12/14/2024 3:15 PM EDT Office Visit [facility] [address] [place] [phone] Pietro Sanchez MD [address] [place] [phone] [facility] Start: 10-31-2024 End: 10-31-2025 Bacteria identified in Urine by Culture [facility] Comment on above: Expected: 10/31/2024 (Approximate), Expires: 10/31/2025 Start: 10-31-2024 End: 10-31-2025 Urinalysis [facility] Work Phone: Comment on above: Expected: 10/31/2024 (Approximate), Expires: 10/31/2025 Start: 08-23-2024 End: 08-23-2024 Patient encounter procedure 08/23/2024 11:00 AM EST Office Visit [facility] [address] [place] [address] [phone] Pietro Sanchez MD [address] [place] [address] [phone] [facility] Start: 07-25-2024 End: 07-25-2025 Urinalysis Urinalysis Lab Routine Dysuria Vaginal discharge Expected: 07/25/2024 (Approximate), Expires: 07/25/2025 [facility] Comment on above: Expected: 07/25/2024 (Approximate), Expires: 07/25/2025 Start: 03-19-2024 Influenza vaccination Influenza Vacc ine [facility] Start: 08-26-2023 Screening for Chlamy haley trachomatis Chlamydia Screening [facility] Start: 09-14-2022 End: 09-14-2022 Patient encounter procedure 09/14/2022 Routine Perinatology [facility] Start: 02-16-2022 Influenza vaccination Flu vaccine (# 1) [facility] Start: 2021 Screening for malign ant neoplasm of cervix Pap smear [facility] Start: 2018 Adult BMI Follow Up Plan Adult BMI Follow Up Plan [facility] Start: 2018 Hepatitis C screening Hepatitis C sc reen [facility] Start: 2016 Screening for Chlamy haley trachomatis Chlamydia/GC screen [facility] Start: 2015 HIV screening HIV screen [facility] Start: 2012 Depression Screen Depression Screen [facility] Start: 01-09-2001 COVID-19 Vaccine (#1) COVID-19 Vacci ne (#1) [facility] End: 07-25-2025 Chlamydia/Gonorrhoeae by PCR, Urine Chlamydia/Gonorrhoeae by PCR, Urine Microbiology Routine Dysuria Vaginal discharge 1 Occurrences starting 07/25/2024 until 07/25/2025 [facility] Work Phone: Comment on above: 1 Occurrences starti ng 07/25/2024 until 07/25/2025 Immunizations Immunization Date Immunization Notes Care Provider Fa cility 12-03-2024 tetanus toxoid, redu jose diphtheria toxoid, and acellular pertussis vaccine, adsorbed Pietro Sanchez MD Work Phone: [facility] 04-09-2021 influenza virus vaccine, unspecified formulation Pietro Sanchez MD Work Phone: [facility] Payers Date Payer Category [facility]ayer Medicaid [facility] [place] [id number]. [id number] 2019 Unknown 2000 Unknown [id number] 2.16.840.1.206476.3.579.2.196 2000 Unknown [id number] 2.16.840.1.866677.3.579.2.196 2000 Unknown [id number] 2.16.840.1.813572.3.579.2.175 2000 Unknown [id number] 2.16.840.1.947108.3.579.2.593 2000 Unknown [id number] 2.16.840.1.531336.3.579.2.593 2000 Unknown [id number] 2.16.840.1.727989.3.579.2.593 2000 Unknown [id number] 2.16.840.1.569380.3.579.2.593 2000 Unknown [id number] 2.16.840.1.508444.3.579.2.593 2000 Unknown [id number] 2.16.840.1.968266.3.579.2.593 2000 Unknown [id number] 2.16.840.1.104242.3.579.2.593 2000 Unknown [id number] 2.16.840.1.437421.3.579.2.593 2000 Unknown [id number] 2.16.840.1.305578.3.579.2.593 2000 Unknown [id number] 2.16.840.1.115226.3.579.2.593 2000 Unknown [id number] 2.16.840.1.004938.3.579.2.593 2000 Unknown [id number] 2.16.840.1.984125.3.579.2.593 2000 Unknown [id number] 2.16.840.1.077410.3.579.2.593 2000 Unknown [id number] 2.16.840.1.922141.3.579.2.593 2000 Unknown [id number] 2.16.840.1.215587.3.579.2.593 2000 Unknown [id number] 2.16.840.1.314973.3.579.2.593 2000 Unknown [id number] 2.16.840.1.179103.3.579.2.593 2000 Unknown [id number] 2.16.840.1.548156.3.579.2.593 2000 Unknown [id number] 2.16.840.1.388126.3.579.2.593 2000 Unknown [id number] 2.16.840.1.583251.3.579.2.593 2000 Unknown [id number] 2.16.840.1.648845.3.579.2.593 2000 Unknown [id number] 2.16.840.1.405585.3.579.2.593 2000 Unknown [id number] 2.16.840.1.496723.3.579.2.593 2000 Unknown [id number] 2.16.840.1.249049.3.579.2.593 2000 Unknown [id number] 2.16.840.1.415333.3.579.2.593 2000 Unknown [id number] 2.16.840.1.505199.3.579.2.1259 2000 Unknown [id number] 2.16.840.1.653034.3.579.2.1259 2000 Unknown [id number] 2.16.840.1.164476.3.579.2.1259 2000 Unknown [id number] 2.16.840.1.375633.3.579.2.128 2000 Unknown [id number] 2.16.840.1.249347.3.579.2.128 2000 Unknown [id number] 2.16.840.1.215614.3.579.2.128 2000 Unknown [id number] 2.16.840.1.557032.3.579.2.128 2000 Unknown [id number] 2.16.840.1.523961.3.579.2.128 2000 Unknown [id number] 2.16.840.1.379628.3.579.2.1286 2000 Unknown [id number] 2.16.840.1.304429.3.579.2.128 2000 Unknown [id number] 2.16.840.1.033260.3.579.2.128 2000 Unknown [id number] 2.16.840.1.785760.3.579.2.128 2000 Unknown [id number] 2.16.840.1.692234.3.579.2.128 2000 Unknown [id number] 2.16.840.1.999356.3.579.2.128 2000 Unknown [id number] 2.16.840.1.258722.3.579.2.1286 2000 Unknown [id number] 2.16.840.1.939363.3.579.2.1286 2000 Unknown [id number] 2.16.840.1.547456.3.579.2.1286 1959 Self-pay 1959 Unknown [id number] 1.2.840.054378.1.13.239.2.7.3. 778712.315 Unknown [id number] 2.16.840.1.769429.3.579.2.593 Social History Date Type Detail Facility Start: 08-17-2022 End: 08-26-2022 Tobacco smoking status NHIS Never smoked tobacco [employer] Phone: Start: 08-17-2022 End: 08-26-2022 Tobacco use and exposure Smokeless tobacco non-user [employer] [facility]: Start: 08-17-2022 Alcohol intake Lifetime non-d lyly (finding) [employer] Phone: Start: 02-23-2022 [employer] Phone: Start: 2000 Sex Assigned At Not on file B ON [employer] Phone: Start: 07-25-2024 End: 12-14-2024 Alcoholic beverage intake Current drinker of alcohol (finding) [facility] Start: 08-29-2020 End: 07-25-2024 History of Social function [facility] Start: 08-29-2020 End: 07-25-2024 Tobacco use panel [facility] Adolescent depressio n screening assessment 22 [facility] Start: 02-21-2015 Sex Female (finding) [facility] Start: 08-26-2022 Sexual orientation Heterosexual (fin ding) [facility] Medical Equipment Procedure Code Equipment Code Equipment Origin al Text Equipment Identifier Dates Plate Bn [id number] mm 1/3 Tblr 10 Hl Colr Lcp Cmbn Ss .7mm 12mm - [id number] Start: 12-12-2024 Plate Bn [id number] m 1/3 Tblr 5 Hl Colr Lcp Cmbn Ss .7mm 12mm - [id number] Start: 12-12-2024 Screw Bn 16mm 2. [address] Sphrcl Hd Sm Hex Sckt [place] Ss 2.5 Rpl Special [id number] - [id number] Start: 12-12-2024 Screw Bn 50mm 3. [address] Lp Sm Hex [place] Ss Ns Rpl [id number] - [id number] Start: 12-12-2024 Screw Bn 40mm 3. [address] Lp Sm Hex [place] Ss Ns Rpl [id number] - [id number] Start: 12-12-2024 Screw Bn 18mm 2. [address] Sphrcl Hd Sm Hex Sckt [place] Ss 2.5 Rpl Special [id number] - [id number] Start: 12-12-2024 Screw Bn 12mm 3. [address] Lp Hd Sm Hex Sckt [place] Ss 2.5mm Rpl Special [id number] - [id number] Start: 12-12-2024 Screw Bn 14mm 3. [address] Lp Sm Hex [place] Ss Ns Rpl Special [id number] - [id number] Start: 12-12-2024 Screw Bn 16mm 4m m 6mm Sm Hex Sckt Canc Ss 2.5mm Ft Ns Sm - [id number] Start: 12-12-2024 Screw Bn 28mm 3. [address] Lp Sm Hex [place] Ss Ns Rpl [id number] - [id number] Start: 12-12-2024 Screw Bn 34mm 3. [address] Lp Hd Sm Hex Sckt [place] Ss 2.5mm Rpl Special [id number] - [id number] Start: 12-12-2024 Screw Bn 30mm 4m m 6mm Sm Hex Sckt Canc Ss 2.5mm Ft Ns - [id number] Start: 12-12-2024 Screw Bn 35mm 4m m 6mm Sm Hex Sckt Canc Ss 2.5mm Ft Ns - [id number] Start: 12-12-2024 Clinical Notes 07-25-2024 to 12-14-2024 Pietro Sanchez MD - 12/14/2024 3:15 PM Brie Sanchez MD - 10/31/2024 3:00 PM Brie Sanchez MD - 07/25/2024 11:30 AM EST Note Date & Type Note Facility 12-14-2024 History of Present illness Narrative Images from the original note were not included. [address] [place] [id number] Patient: John Paul Schilling Date of : 2000 Encounter Date: 12/14/2024 SUBJECTIVE: Chief Complaint: Chief Complaint Patient presents with Er Follow-up Broken left ankle Patient ID: John Paul Schilling is a 24 y.o. female. 24-year-old female here to for [facility] ER follow-up. Was seen on 12/03/2024 for left ankle injury. While he down her steps slipped and slid down proximally 6 steps sounds like she ate plantar flex her foot. X-ray in the ER was notable for an dislocation with diffuse soft tissue swelling results aids still fibula and tibia fracture noted. Orthopedics consulted with outpatient follow-up. On 12/12 she underwent orthopedic trimalleolar fracture repair. Has been doing once runs Physical therapy is ongoing. Pain well-controlled. The following portions of the patient's history were reviewed and updated as appropriate: allergies, current medications, past family history, past medical history, past social history, past surgical history and problem list. PHYSICAL EXAMINATION: Vitals: 12/14/24 1529 BP: 124/74 Pulse: 61 Temp: 36.7 C (98 F) TempSrc: Oral SpO2: 98% Weight: 128.4 kg (283 lb) Height: 165.1 cm (5' 5 ) Physical Exam Vitals reviewed. Constitutional: General: She is not in acute distress. Appearance: Normal appearance. Eyes: Extraocular Movements: Extraocular movements intact. Pupils: Pupils are equal, round, and reactive to light. Cardiovascular: Rate and Rhythm: Normal rate and regular rhythm. Pulses: Normal pulses. Heart sounds: Normal heart sounds. Pulmonary: Effort: Pulmonary effort is normal. No respiratory distress. Breath sounds: Normal breath sounds. No wheezing or rhonchi. Abdominal: General: Bowel sounds are normal. There is no distension. Palpations: Abdomen is soft. There is no mass. Tenderness: There is no abdominal tenderness. There is no right CVA tenderness, left CVA tenderness or guarding. Musculoskeletal: Cervical back: Normal range of motion and neck supple. Legs: Comments: Cast in place, toes visible with good sensation and cap refill. Neurological: Mental Status: She is alert and oriented to person, place, and time. Mental status is at baseline. ASSESSMENT/PLAN: John Paul was seen today for er follow-up. Diagnoses and all orders for this visit: Trimalleolar fracture of ankle, closed, left, sequela Bipolar affective disorder, currently depressed, moderate (CMS-HCC) Status post open reduction internal fixation Follows physical therapy Follow up with Orthopedics Pain reasonably controlled with Percocets, plan to transition to Motrin at 600 mg q.8 hours on day 5. Follow-up as needed PIETRO SANCHEZ MD Family Medicine Physician [facility] / [facility] 12/14/24 This note was completed with voice recognition software. The document was reviewed for errors however some may still be present. Please do not hesitate to contact[place] [place] to verify any questions/concerns. documented in this encounter [facility] 10-31-2024 History of Present illness Narrative Images from the original note were not included. [address] [place] [id number] Patient: John Paul Schilling Date of : 2000 Encounter Date: 10/31/2024 SUBJECTIVE: HISTORY OF PRESENT ILLNESS: Chief Complaint: Chief Complaint Patient presents with Manic Behavior Patient ID: John Paul is a 24 y.o. female Here Interval assessment of underlying mood disorder, last encounter we re-initiate Lamictal. Patient reports she tried taking the medication for 1 month and then stopped due to limited to no improvement of symptoms. Endorsed taking the Lamictal only once a day. She is unsure if she was using the Atarax with any frequency. Continues to endorse exacerbation of symptoms with limited to no relief. Also endorses ongoing abdominal pain and lumbosacral pain. She endorses multiple stressors in her life and history including the passing of her grandfather who she was very bonded with and never truly got over. Losing her brother last year to overdose, as well as having challenging children who are frequently fighting with each other. Does endorse having PTSD like symptoms having repeated flashbacks and recurrent replay of memory of her brother taking last breaths Depression Screening Total Score: 22 JEWELS 20 Past medical history is notable for PTSD [...] Chart review shows patient was admitted in [place] for psychiatric stay, diagnosed with major depressive disorder and discharged home on Adderall, Lamictal, Prozac. PAST MEDICAL HISTORY: Past Medical History: Diagnosis Date ADHD Anxiety Asthma Bipolar disorder ([facility]) Depression PAST SURGICAL HISTORY: Past Surgical History: [...] on file Food Insecurity: No Food Insecurity (07/28/2024) Hunger Screening Food Insecurity - Worry: Never [...] Current Outpatient Medications Medication Sig Dispense Refill hydrOXYzine (ATARAX) 25 mg tablet TAKE 1 TABLET BY MOUTH 3 TIMES A DAY NEEDED FOR ANXIETY. 90 tablet 0 mirtazapine (REMERON) 7.5 mg tablet Take 1 tablet (7.5 mg total) by mouth nightly. 30 tablet 0 venlafaxine XR (EFFEXOR XR) 37.5 mg 24 hr capsule Take 1 capsule (37.5 mg total) by mouth in the morning. 30 capsule 2 No current facility-administered medications for this visit. PHYSICAL EXAMINATION: Vitals: 10/31/24 1505 BP: 120/68 Pulse: 65 Temp: 36.4 C (97.5 F) TempSrc: Oral SpO2: 97% Weight: 130.2 kg (287 lb) Height: 162.6 cm (5' 4 ) [...] ASSESSMENT/PLAN: John Paul was seen today for manic behavior. Diagnoses and all orders for this visit: Bipolar affective disorder, currently depressed, moderate (CMS-HCC) - mirtazapine (REMERON) 7.5 mg tablet; Take 1 tablet (7.5 mg total) by mouth nightly. - venlafaxine XR (EFFEXOR XR) 37.5 mg 24 hr capsule; Take 1 capsule (37.5 mg total) by mouth in the morning. Primary insomnia - mirtazapine (REMERON) 7.5 mg tablet; Take 1 tablet (7.5 mg total) by mouth nightly. Suprapubic pain - Urinalysis; Future - Urine Culture; Future 24-year-old female with complicated past medical history Discontinue Lamictal therapy Extensive counseling regarding medication compliance and working with provider before modifications are made Reviewed [place] guide for PTSD optimal medications, elected to initiate Effexor. Remeron for sleep optimization Continue Atarax for anxiety or symptom flare ups PITERO SANCHEZ MD Family Medicine Physician [facility] / [facility] 10/31/24 This note was completed with voice recognition software. The document was reviewed for errors however some may still be present. Please do not hesitate to contact/[facility] [place] author to verify any questions/concerns. documented in this encounter [facility] 07-25-2024 History of Present illness Narrative Images from the original note were not included. [address] [place] [id number] Patient: John Paul Schilling Date of [...] Chart review shows patient was admitted in [place] for psychiatric stay, diagnosed with major depressive [...] Back pain - chronic, XR completed in [place] -discogenic disease -chronic pain - manages with cannabis regularly -Has episodes of SOB/Dyspnea PAST MEDICAL HISTORY: Past Medical History: Diagnosis Date ADHD Anxiety Asthma Bipolar disorder ([facility]) Depression PAST SURGICAL HISTORY: Past Surgical History: [...] visit: Bipolar affective disorder, currently depressed, moderate (CMS-[facility]) - lamoTRIgine (LaMICtal) 25 mg tablet; Take [...] month PIETRO SANCHEZ MD Family Medicine Physician [facility] / [facility] 07/25/24 This note was completed with voice recognition software. The document was reviewed for errors however some may still be present. Please do not hesitate to contact/[facility] [place] author to verify any questions/concerns. documented in this encounter [facility] Evaluation note Diagnosis Bipolar affective disorder, currently depressed, moderate (CMS-HCC)- Primary Bipolar I disorder, most recent episode (or current) depressed, moderate Candidal vaginitis Candidiasis of vulva and vagina Dysuria Vaginal discharge Leukorrhea, not specified as infective [facility] Diagnosis Bipolar affective disorder, currently depressed, moderate (CMS-HCC) Bipolar I disorder, most recent episode (or current) depressed, moderate [facility] Diagnosis Bipolar affective disorder, currently depressed, moderate (CMS-HCC)- Primary Bipolar I disorder, most recent episode (or current) depressed, moderate Primary insomnia Persistent disorder of initiating or maintaining sleep Suprapubic pain Abdominal pain, other specified site [facility] this [facility] Diagnosis Bipolar affective disorder, currently depressed, moderate (CMS-HCC) Bipolar I disorder, most recent episode (or current) depressed, moderate Primary insomnia Persistent disorder of initiating or maintaining sleep [facility] Diagnosis Trimalleolar fracture of ankle, closed, left, sequela- Primary Bipolar affective disorder, currently depressed, moderate (CMS-HCC) Bipolar I disorder, most recent episode (or current) depressed, moderate [facility] filed[facility] filedocumented in [facility] filedocumented in this encounter [facility] filedocumented in [facility] filedocumented in this encounter [facility] Summary Purpose Family History No Family [...] section and content) DATE CREATED AUTHOR 04/20/2019 [facility] DATE CREATED AUTHOR AUTHOR'S ORGANIZ ATION 08/18/2022 [facility] DATE CREATED AUTHOR AUTHOR'S ORGANIZ ATION 11/20/2022 [facility] DATE CREATED AUTHOR AUTHOR'S ORGANIZ ATION 11/28/2023 [facility] EPIC DATE CREATED AUTHOR AUTHOR'S ORGANIZ ATION 12/16/2024 [facility] DATE CREATED AUTHOR AUTHOR'S ORGANIZ ATION 03/09/2025 [facility] DATE CREATED AUTHOR AUTHOR'S ORGANIZ ATION 03/28/2025 [facility] Reason for Visit (unrecogniz ed section and content) Reason Comments Establish Care Reason Comments Med Refill Reason Comments Manic Behavior Reason Comments Er Follow-up Broken left ankle Care Teams (unrecognized sec tion and content) Enrollment Specialist Relationship Specialty Start Date End Date Pietro Sanchez MD [address] [place] [address] PCP - General Internal Medicine 03/04/24 Enrollment Specialist Relationship Specialty Start Date End Date Pietro Sanchez MD [address] [place] [address] PCP - General Internal Medicine 03/04/24 Enrollment Specialist Relationship Specialty Start Date End Date Pietro Sanchez MD [address] [place] [address] PCP - General Internal Medicine 03/04/24 Enrollment Specialist Relationship Specialty Start Date End Date Pietro Sanchez MD [address] [place] [address] PCP - General Internal Medicine 03/04/24 FOR [...] BE BASED ON THE PRIMARY CLINICAL RECORDS. [facility] [employer] [facility]. provides no warranty or guarantee of the accuracy or completeness of information in this document.
[2025-03-30 20:00] VITALS: BP 122/79; PULSE 83; TEMP 36.8; O2SAT 100; BMI 34.3
== END 2025-03-31 00:17 | disposition left against medical advice (07) ==
PROVIDERS: Emergency Provider Emergency Medicine
DX: Z53.21 Procedure and treatment not carried out due to patient leaving prior to being seen by health care provider (principal)
CPT/HCPCS: 99281